=== PATIENT | female | born 1960 | race Two or more races ===

== ENCOUNTER 2024-12-23 11:26 | Inpatient (IN) | payer MEDICARE, MEDICAID, SELFPAY ==
[2024-12-23] VITALS (12 sets, daily range): BP systolic 102–141; BP diastolic 53–82; PULSE 75–96; RESP 15–84; TEMP 36.1–38.7; O2SAT 92–95; BMI 19.3; BMI 21.6
--- NOTE | 2024-12-23 11:55 | XR_ITS ---
Examination: AP lateral chest 2 views TECHNIQUE: Portable sitting AP lateral chest 2 views Exam date and time: December 23, 2024 12:44 PM INDICATIONS: Coughing congestion 2 days. FINDINGS: Bibasilar pneumonia Moderate vascular congestion Normal heart size Reduced inspiratory effort IMPRESSION: Bibasilar pneumonia
--- NOTE | 2024-12-23 11:55 | EKG_ITS ---
[facility] Test Date: 2024-12-23 Pat Name: JESUS BAH Department: Room: - Gender: Female Clinical Education Consultant: : [id number] Requested By: Nelson Yin Order Number: [id number] Reading MD: Nelson Yin Measurements Intervals Bruce Rate: 83 P: 20 NE: 123 QRS: -3 QRSD: 88 T: 9 QT: 335 QTc: 395 Interpretive Statements SINUS RHYTHM LOW QRS VOLTAGE IN PRECORDIAL LEADS [QRS DEFLECTION < 1.0 mV IN CHEST LEADS] ANTEROSEPTAL MYOCARDIAL INFARCTION , OF INDETERMINATE AGE [40+ ms Q WAVE IN V1-V4] No previous ECG available for comparison /store/S0/[id number].pdf
--- NOTE | 2024-12-23 11:56 | EDRME_ITS ---
Rapid Medical Screening Exam [facility] Arrival date/time: 12/23/24 11:26 64-year-old female with a history of hyperlipidemia, developmentally delayed, type 2 diabetes presents to the emergency room with a chief complaint of generalized weakness, fatigue, cough, poor appetite x 3 days. I have greeted and performed a focused initial assessment of this patient. A comprehensive ED assessment and evaluation of the patient, analysis of all test results, and completion of the medical decision making process will be conducted by additional ED providers. Chief Complaint: Weakness Time Seen by Provider: 12/23/24 11:49 Vital signs: Vital Signs Temperature 99.6 F 12/23/24 11:50 Pulse Rate 89 12/23/24 11:50 Respiratory Rate 20 12/23/24 11:50 Blood Pressure 141/77 H 12/23/24 11:50 Pulse Oximetry (%) 92 L 12/23/24 11:50 Oxygen Delivery Method Room Air 12/23/24 11:50 Vital signs reviewed by provider: Yes
[2024-12-23 13:03] LABS: Basophils # (Auto) 0.1 Thou/mm3 (0.0-0.2); Basophils % (Auto) 1 % (0-2.5); Eosinophils % (Auto) 0 % (0-10); Hemoglobin 11.7 g/dL (12.0-16.0); Immature Granulocytes % (Auto) 2 % (0-0); Immature Granulocytes Auto 0.18 Thou/mm3 (0.00-0.00); Lymphocytes # (Auto) 1.2 Thou/mm3 (1.0-4.8); Lymphocytes % (Auto) 12 % (10-50); Mean Corpuscular HGB Conc 33.4 g/dl (31.0-37.0); Mean Corpuscular Hemoglobin 31.9 pg (25.0-35.0); Mean Corpuscular Volume 95 fL (80-100); Monocytes # (Auto) 1.5 Thou/mm3 (0.0-0.8); Monocytes % (Auto) 14 % (0-12); Neutrophils # (Auto) 7.4 Thou/mm3 (1.8-7.7); Neutrophils % (Auto) 71 % (37-80); Nucleated Red Blood Cell % 0 /100 WBC (0); Platelet Count 157 Thou/mm3 (140-440); RDW Standard Deviation 45.2 fL (36.4-46.3); Red Blood Count 3.67 Miln/mm3 (4.00-5.20); White Blood Count 10.3 Thou/mm3 (3.6-11.0)
[2024-12-23 13:29] LABS: Alanine Aminotransferase 105 U/L (10-49); Albumin, Serum 4.4 gm/dL (3.4-4.8); Albumin/Globulin Ratio 1.3 (1.2-2.2); Alkaline Phosphatase 97 U/L (46-116); Anion Gap 8 (7-16); Aspartate Amino Transferase 127 U/L (0-34); BUN/Creatinine Ratio 14 Ratio (12-20); Bilirubin,Total 0.3 mg/dL (0.3-1.2); Blood Urea Nitrogen 13 mg/dL (9-23); Calcium 9.5 mg/dL (8.3-10.6); Calcium (Corrected) 9.5 mg/dL (8.5-10.1); Carbon Dioxide 27.7 mMol/L (20.0-31.0); Chloride 103 mMol/L (98-107); Creatinine (Component) 0.9 mg/dL (0.6-1.3); Estimated Creatinine Clearance 50.8 mL/min (>60); Globulin 3.4 gm/dL (2.3-3.5); Glucose 233 mg/dL (74-106); Magnesium 2.2 mg/dL (1.6-2.6); Osmolality,Calculated 284 (275-295); Potassium 4.2 mMol/L (3.4-5.1); Sodium 139 mMol/L (136-145); Total Protein 7.8 gm/dL (5.7-8.2); Troponin I < 0.020 ng/mL (0.0-0.045); eGFR > 60 See Note
[2024-12-23 13:36] LABS: B-Type Natriuretic Peptide 57 pg/mL (0-100)
[2024-12-23 14:44] LABS: Collection Type, Urine Catheter; Squamous Epithelial Cell,Urine 0 /hpf (0-5)
[2024-12-23 15:26] LABS: Bilirubin,Urine Negative (Negative); Blood,Urine 1+ (Negative); Clarity,Urine Clear (Clear/Hazy); Color,Urine Drk-Yellow (Lt Yel-Yel); Glucose, Urine 2+ (Negative); Ketones,Urine Trace (Negative); Leukocyte Esterase,Urine Negative (Negative); Nitrite,Urine Negative (Negative); Protein,Urine 1+ (Neg - Trace); RBC,Urine 131 /hpf (0-3); Specific Gravity,Urine 1.035 (1.001-1.035); WBC,Urine 5 /hpf (0-5)
--- NOTE | 2024-12-23 15:42 | PD.EDWEAK ---
ED Weakness RME/HPI General Chief complaint: Weakness Stated complaint: NOT EATING, CAN'T STAND, SLOUCHING ;HX DELAYED/NO Time Seen by Provider: 12/23/24 11:49 Source: family (Caregiver) Arrival date/time: 12/23/24 11:26 64-year-old female with past history of hyperlipidemia, developmentally delayed, type 2 diabetes, and is nonverbal presents emergency department complaining of generalized weakness, cough, and poor appetite for 3 days. Mode of arrival: wheelchair Limitations: language barrier and physical limitation RME / HPI RME / HPI Narrative: 12/23/24 11:26 64-year-old female with a history of hyperlipidemia, developmentally delayed, type 2 diabetes presents to the emergency room with a chief complaint of generalized weakness, fatigue, cough, poor appetite x 3 days. I have greeted and performed a focused initial assessment of this patient. A comprehensive ED assessment and evaluation of the patient, analysis of all test results, and completion of the medical decision making process will be conducted by additional ED providers. Related Data Home Medications ?Medication ?Instructions ?Recorded ?Confirmed AVORSTATIN 20 mg PO QDAY HYPERLIPIDEMIA ##0 03/23/16 Divalproex Sodium SPRINKLE * 625 mg PO BID Bipolar Disorder #0 03/23/16 (DEPAKOTE SPRINKLE *) caps Mag Hyd/Alum Hyd/Simeth SUSP * 2 tbsp PO TID PRN INDIGESTION #355 03/23/16 (MAALOX EX STR SUSP *) mL Propranolol Hcl * (INDERAL *) 20 mg PO BID #0 tabs 03/23/16 acetaminophen 500 mg tablet 2 tab PO Q6HR PRN PAIN #0 tabs 03/23/16 (Tylenol Extra Strength) docusate sodium 250 mg capsule 250 mg PO HS #0 caps 03/23/16 (DOK) famotidine 40 mg tablet (Pepcid) 40 mg PO QPM #0 tabs 03/23/16 lactulose 10 gram/15 mL (15 mL) 15 ml PO BID ##0 03/23/16 oral solution multivitamin (Tab-A-Jessica tablet) 1 tab PO QDAY ##0 03/23/16 polyethylene glycol 3350 17 gram 1 pkt PO QDAY ##0 03/23/16 oral powder packet (Miralax) Previous Rx's ?Medication ?Instructions ?Recorded Quetiapine Fumarate (QUETIAPINE 25 mg PO BID #100 tabs 03/27/16 FUMARATE) insulin glargine 100 unit/mL 15 unit (0.15 mL) subcut QDAY #30 03/27/16 subcutaneous solution (Lantus vials U-100 Insulin) metformin 500 mg tablet 500 mg PO BIDAC #100 tabs 03/27/16 (Glucophage) Allergies Allergy/AdvReac Type Severity Reaction Status Date / Time NKA* Allergy Uncoded 12/23/24 11:33 Review of Systems Review of Systems Systems Reviewed: All systems reviewed, normal except as documented Constitutional Constitutional: Reports system reviewed and no additional complaints, except as documented, Denies body ache(s), Denies chills, Denies fever(s), Reports poor appetite and Reports weakness Eyes Eyes: Reports system reviewed and no additional complaints, except as documented and Denies change in vision ENT Ears, Nose, Mouth, and Throat: Reports system reviewed and no additional complaints, except as documented, Denies disequilibrium, Denies dizziness, Denies sore throat and Denies vertigo Cardiovascular Cardiovascular: Reports system reviewed and no additional complaints, except as documented, Denies chest pain and Denies dyspnea Respiratory Respiratory: Reports system reviewed and no additional complaints, except as documented, Denies chest congestion, Reports cough and Denies dyspnea Gastrointestinal Gastrointestinal: Reports system reviewed and no additional complaints, except as documented, Denies abdominal pain, Denies nausea and Denies vomiting Musculoskeletal Musculoskeletal: Reports system reviewed and no additional complaints, except as documented, Denies abnormal gait and Denies arthralgias Integumentary/Breasts Skin/Breast: Reports system reviewed and no additional complaints, except as documented, Denies erythema, Denies rash and Denies wounds Neurologic Neurologic: Reports system reviewed and no additional complaints, except as documented, Denies abnormal gait, Denies disequilibrium, Denies dizziness, Denies vertigo and Reports weakness Past Medical History Past Medical History NEUROLOGIC: Negative Neurological Disorders CARDIAC: Negative Cardiac Disorders or Congestive Heart Failure RESPIRATORY: Negative Respiratory Disorders or Chronic Obstructive Pulmonary Disease (COPD) GASTROINTESTINAL: Negative Gastrointestinal Disorders GENITOURINARY: Negative Genitourinary Disorders or Renal Disease MUSCULOSKELETAL: Negative Musculoskeletal Disorders ENT: Positive History of ENT Problems (Right eye doesn't open per caregiver) ENDOCRINE: Positive Endocrine Disorders and Diabetes Mellitus Type 2; Negative Diabetes Mellitus Type 1 HEMATOLOGIC: Negative Blood Disorders PSYCHO/SOCIAL: Positive Schizophrenia OTHER HISTORY: Negative Cancer Social History SMOKING STATUS: Never smoker ED Exam General Limitations: Present language barrier and physical limitation General appearance: Present alert and in no apparent distress Head Head exam: Present atraumatic Eye Eye exam: Present normal appearance, PERRL and EOMI ENT ENT exam: Present normal exam, normal oropharynx and mucous membranes moist Neck Neck exam: Present normal inspection, full ROM and trachea midline Chest Chest inspection: Present normal inspection and symmetric chest wall rise Respiratory Respiratory exam: Present normal lung sounds bilaterally Expanded Respiratory Exam Location: Left: decreased breath sounds, Right: decreased breath sounds and Lower: decreased breath sounds Cardiovascular Cardiovascular exam: Present regular rate, normal rhythm and normal heart sounds Abdominal Exam Abdominal exam: Present soft and normal bowel sounds Extremities Exam Extremities exam: Present normal inspection and full ROM Back Exam Back exam: Present normal inspection and full ROM Neurological Exam Neurological exam: Present alert Psychiatric Psychiatric exam: Present normal affect and normal mood Skin Skin exam: Present warm, dry, intact and normal color Course Quality Measures none Orders Category Date Time Status Patient Condition Routine Admission 12/23/24 16:[address] in Observation Status Routine Admission 12/23/24 16:29 Active Bedside Blood Glucose ACHS Care 12/23/24 16:32 Active Bedside Blood Glucose NOW Care 12/23/24 12:14 Active Bedside COVID-19 Antigen Test NOW Care 12/23/24 11:55 Active Bedside Influenza A&B Antigen Test NOW Care 12/23/24 11:55 Completed COVID-19 Screening Questionnaire NOW Care 12/23/24 15:49 Active Head Animal Trainer Q4H START 00 Care 12/23/24 12:18 Active Continuous Pulse Oximetry NOW Care 12/23/24 12:18 Completed Decision to Admit X1 Care 12/23/24 15:49 Active EKG (ED ONLY) *Do not use* NOW Care 12/23/24 11:55 Completed Education, Diabetic NOW Care 12/23/24 16:45 Ordered Flu & Pneumonia Vaccine Screen ONCE Care 12/23/24 16:23 Active In and Out Catheter X1 Care 12/23/24 11:55 Completed Insert IV NOW Care 12/23/24 13:59 Active Miscellaneous Nursing Order NOW Care 12/23/24 16:34 Active Notify provider NEEDED Care 12/23/24 16:23 Active Oronasopharyngeal suction PRN Care 12/23/24 12:25 Active Referral Registered Dietitian Routine Cons 12/23/24 16:33 Active EKG (ED Only) Stat Exams 12/23/24 11:55 Draft XR chest 2V Stat Exams 12/23/24 11:55 Completed B-Type Natriuretic Peptide Stat Lab 12/23/24 12:59 Completed Blood Culture (Lab) Stat Lab 12/23/24 16:42 Ordered CBC AM DRAW Lab 12/24/24 05:00 Ordered CBC AM DRAW Lab 12/25/24 05:00 Ordered CBC AM DRAW Lab 12/26/24 05:00 Ordered CBC AM DRAW Lab 12/27/24 05:00 Ordered CBC AM DRAW Lab 12/28/24 05:00 Ordered CBC Stat Lab 12/23/24 12:59 Completed Comprehensive Metabolic Panel AM DRAW Lab 12/24/24 05:00 Ordered Comprehensive Metabolic Panel AM DRAW Lab 12/25/24 05:00 Ordered Comprehensive Metabolic Panel AM DRAW Lab 12/26/24 05:00 Ordered Comprehensive Metabolic Panel AM DRAW Lab 12/27/24 05:00 Ordered Comprehensive Metabolic Panel AM DRAW Lab 12/28/24 05:00 Ordered Comprehensive Metabolic Panel Stat Lab 12/23/24 12:59 Completed Hemoglobin A1C [Glycohemoglobin w (eAG)] AM DRAW Lab 12/24/24 05:00 Ordered Lactic Acid [Lactate (Lactic Acid)] Stat Lab 12/23/24 16:38 Ordered Lipid Panel AM DRAW Lab 12/24/24 05:00 Ordered Magnesium AM DRAW Lab 12/24/24 05:00 Ordered Magnesium AM DRAW Lab 12/25/24 05:00 Ordered Magnesium AM DRAW Lab 12/26/24 05:00 Ordered Magnesium AM DRAW Lab 12/27/24 05:00 Ordered Magnesium AM DRAW Lab 12/28/24 05:00 Ordered Magnesium Stat Lab 12/23/24 12:59 Completed Procalcitonin Stat Lab 12/23/24 16:38 Ordered Sputum Culture and Gram Stain Stat Lab 12/23/24 16:25 Ordered Thyroid Stimulating Hormone AM DRAW Lab 12/24/24 05:00 Ordered Troponin I Stat Lab 12/23/24 12:59 Completed Urinalysis Stat Lab 12/23/24 14:35 Completed Acetaminophen Tab [Tylenol Tab] Med 12/23/24 16:23 Active 650 mg PO Q6H PRN Acetaminophen Tab [Tylenol Tab] Med 12/23/24 16:23 Active 650 mg PO Q6H PRN Dextrose 50% Syr [D50w Syringe Abboject] Med 12/23/24 16:32 Active 25 ml IV Q15MIN PRN Dextrose 50% Syr [D50w Syringe Abboject] Med 12/23/24 16:32 Active 50 ml IV Q15MIN PRN Docusate Sod [Colace] Med 12/23/24 16:30 Active 100 mg PO QDAY Doxycycline Inj [Vibramycin Inj] 100 mg Med 12/23/24 21:00 Active Sodium Chloride 0.9% (Pop) [NS 0.9% mini bag] 100 ml IV BID Glucagon Inj Med 12/23/24 16:32 Active 1 mg IM Q15MIN PRN Heparin Inj Med 12/23/24 22:00 Active 5,000 unit SC Q8HR INSULIN LISPRO (AdmeLOG) [HumaLOG] Med 12/23/24 17:00 Active See Protocol SC AC Ondansetron Inj [Zofran Inj] Med 12/23/24 16:23 Active 4 mg IV Q6H PRN Pantoprazole [Protonix] Med 12/24/24 09:00 Active 40 mg PO QDAY Polyeth Glycol/Propylene Glyco [Miralax Pkt] Med 12/24/24 09:00 Active 17 gm PO QDAY Sennosides Syrup [Senna Syrup] Med 12/23/24 16:45 Active 8.8 mg PO QDAY Sodium Chloride Rt Marisabel 10% [NS Rt Marisabel 10%] Med 12/23/24 16:23 Discontinued 5 ml INH X1 ONE cefTRIAXone [Rocephin] 1,000 mg Med 12/24/24 09:00 Active SODIUM CHLORIDE 0.9% (Popper) [Ns 0.9% (P)] 50 ml IV QDAY cefTRIAXone [Rocephin] 1,000 mg Med 12/23/24 16:10 Discontinued SODIUM CHLORIDE 0.9% (Popper) [Ns 0.9% (P)] 50 ml IV X1 Code Status Routine Oth 12/23/24 16:23 Ordered Oxygen Delivery PRN RT 12/23/24 12:21 Active Sputum Induction PRN RT 12/23/24 16:30 Ordered Vital Signs Vital signs: Vital Signs Temperature 99.6 F 12/23/24 11:50 Pulse Rate 89 12/23/24 11:50 Respiratory Rate 20 12/23/24 11:50 Blood Pressure 141/77 H 12/23/24 11:50 Pulse Oximetry (%) 92 L 12/23/24 11:50 Oxygen Delivery Method Room Air 12/23/24 11:50 92% on 2 L nasal cannula Procedures -ED EKG Interpretation #1: Date of EK12/23/24 Time of EK:03 Rate: 83 Interpretation: Interpreted by me EKG Impression: Normal sinus rhythm, No acute ST-T changes, No ectopy and No ischemic changes Weakness MDM Narrative MDM Narrative:: 64-year-old female with past history of hyperlipidemia, developmentally delayed, type 2 diabetes, and is nonverbal presents emergency department complaining of generalized weakness, cough, and poor appetite for 3 days. CBC was unremarkable for any leukocytosis. CMP was unremarkable other than mild elevation of AST 127 and ALT 105. Urinalysis was unremarkable other than RBCs no leukocytes, no bacteria, or positive for nitrates. Chest x-ray report bilateral bibasilar pneumonia. Patient candidate for admission due to pneumonia and hypoxia. Hospitalist consulted for admission and agrees to admit patient for oxygen therapy and antibiotics. Patient stable at time of admission. Patient data External records reviewed:: [facility] previous records Clinical information provided by:: guardian and senior java architect Social determinants that could affect healthcare access:: none Patient has the following chronic illnesses:: See chart How is presenting disease/condition affected by chronic disease/condition?: uneffected by Evaluation data The following diagnostics were reviewed and interpreted by me:: lab results, radiology exam(s) and EKG tracing(s) Lab and/or radiology exams considered but not ordered:: Ordered Interpretation Summary: Interpreted by me Medications / Prescriptions Medications or Prescriptions considered but not ordered:: Ordered Medication administrations:: Medication Administration History Acetaminophen (Acetaminophen 325 Mg Tablet) 650 mg PO Q6H PRN PRN Reason: Fever >100.5 Stop: 01/22/25 16:22 Last Admin: 12/23/24 16:51 Dose: 650 mg Documented By: SULTANA Acetaminophen (Acetaminophen 325 Mg Tablet) 650 mg PO Q6H PRN PRN Reason: PAIN SCALE 1-3 (mild Stop: 01/22/25 16:22 Dextrose (Dextrose 50%-Water Inj 50 Ml Syringe) 25 ml IV Q15MIN PRN PRN Reason: BG 50-70 responsive npo pt Stop: 01/22/25 16:31 Dextrose (Dextrose 50%-Water Inj 50 Ml Syringe) 50 ml IV Q15MIN PRN PRN Reason: BG <50 OR BG <70 & pt unresponsive Stop: 01/22/25 16:31 Docusate Sodium (Docusate Sod 100 Mg Capsule) 100 mg PO QDAY [facility]; Protocol Stop: 01/22/25 16:29 Last Admin: 12/23/24 16:51 Dose: 100 mg Documented By: DarylT Glucagon (Glucagon Inj 1 Mg Vial) 1 mg IM Q15MIN PRN PRN Reason: BG <70, and no IV access Heparin Sodium (Porcine) (Heparin Sod Inj 5000 Unit/Ml Vial) 5,000 unit SC Q8HR [facility] Stop: 01/06/25 21:59 Ceftriaxone Sodium 1,000 mg/ (Sodium Chloride) 50 mls @ 100 mls/hr IV QDAY [facility] Stop: 12/31/24 08:59 Doxycycline Hyclate 100 mg/ (Sodium Chloride) 100 mls @ 100 mls/hr IV BID [facility] Stop: 12/30/24 20:59 Insulin Human Lispro (Insulin Lispro (Admelog) 1 Unit/0.01 Ml Unit) 0 unit SC AC [facility]; Protocol Stop: 01/22/25 16:59 Ondansetron HCl (Ondansetron Inj 2 Mg/Ml Inj 2 Ml) 4 mg IV Q6H PRN; Protocol PRN Reason: NAUSEA OR VOMITING Stop: 01/22/25 16:22 Pantoprazole Sodium (Pantoprazole 40 Mg Tablet) 40 mg PO QDAY [facility] Stop: 01/23/25 08:59 Polyethylene Glycol (Polyethylene Glycol 17 Gm Packet) 17 gm PO QDAY [facility] Stop: 01/23/25 08:59 Sennosides (Sennosides Syrup 8.8 Mg/5 Ml Udc) 8.8 mg PO QDAY [facility]; Protocol Stop: 01/22/25 16:44 Discontinued Medications Ceftriaxone Sodium 1,000 mg/ (Sodium Chloride) 50 mls @ 100 mls/hr IV X1 ONE Stop: 12/23/24 16:39 Last Admin: 12/23/24 16:52 Dose: 100 mls/hr Documented By: SULTANA Sodium Chloride (Sodium Chloride Rt 10% 15 Ml Nebu) 5 ml INH X1 ONE Stop: 12/23/24 16:24 Given Consultations Consultation(s) initiated? (list below): Yes Consultation #1 (Physician, Specialty, Details): Dr. Jareth Calabrese Diagnosis Weakness Differential Diagnosis: anemia, rhabdomyolysis, sepsis, dehydration and other Most likely diagnosis given after review of the tests above:: Hypoxia Admission Indicated Admission indicated?: indicated Admission Request Was there a request for admission?: Yes Admission Attestation Admission request attestation: Discussed case with [Dr. Jareth Calabrese] from Hospitalist service regarding admission. Discussed patients ED course, exam findings, labs, and radiology results. The Hospitalist [agrees] to accept the patient for admission. Disposition Plan Disposition Plan: Admit Discharge Plan Plan Patient Disposition: Admit Acute Care w/in Hospital Disposition Comment: Stable Prescriptions/Referrals Prescriptions/Med Rec: No Action polyethylene glycol 3350 [Miralax] 12 EA powder in packet 1 pkt PO QDAY Qty: 0 Propranolol Hcl * (INDERAL *) 20 MG tablet 20 mg PO BID Qty: 0 AVORSTATIN 20 mg PO QDAY Qty: 0 multivitamin [Tab-A-Jessica] 1 TAB tablet 1 tab PO QDAY Qty: 0 famotidine [Pepcid] 40 MG tablet 40 mg PO QPM Qty: 0 Patient Comments: TO SUP[employer] SECRETIONS acetaminophen [Tylenol Extra Strength] 500 MG tablet 2 tab PO Q6HR PRN (Reason: PAIN) Qty: 0 Patient Comments: FOR FEVER OR PAIN docusate sodium [DOK] 250 MG capsule 250 mg PO HS Qty: 0 lactulose 10 GM/15 ML solution 15 ml PO BID Qty: 0 Divalproex Sodium SPRINKLE * (DEPAKOTE SPRINKLE *) 125 MG CAP.SPRINK 625 mg PO BID Qty: 0 Mag Hyd/Alum Hyd/Simeth SUSP * (MAALOX EX STR SUSP *) 355 ML ORAL.SUSP 2 tbsp PO TID PRN (Reason: INDIGESTION) Qty: 355 metformin [Glucophage] 500 MG tablet 500 mg PO BIDAC Qty: 100 0RF insulin glargine [Lantus U-100 Insulin] 100 U/ML solution 15 unit Sub-Q QDAY Qty: 30 0RF Quetiapine Fumarate (QUETIAPINE FUMARATE) 25 MG tablet 25 mg PO BID Qty: 100 0RF Referrals: Shabbir Calabrese MD [Primary Care Provider] - In 1 week Problem List Clinical Impression: Hypoxia Patient/Caregiver Discharge Instructions Print Language: Italian Stand Alone Forms: Janell Award Info., Patient Portal Info Letter PA/TELEVISION PROGRAM DIRECTOR Supervising Physician PA/TELEVISION PROGRAM DIRECTOR Supervising Physician: Dr. Lucas
--- NOTE | 2024-12-23 16:44 | ESHP_ITS ---
<Statement entered by Breanna Varela MD - 12/24/24 15:46> Patient is a 64 y.o female w/ PMHx significant for type2 DM, developmentally delayed, nonverbal at baseline, HLD, who presented to the ED with generalized weakness and admitted for AHRF 2/2 to CAP. Patient started on IV Abx, pending blood cultures, COVID/Influenza, LA and Procal. Will restart patient's home medications pending med rec. Patient seen and examined at bedside, Patient comfortable on 3L saturating above 94% and will wean as tolerated. I discussed with and supervised the creative services intern physician who took care of this patient. I personally saw and examined the patient and discussed the assessment and plan with the entire medicine team, including my attending , I agree with most of the assessment and plan as documented below Breanna Varela M.D. PGY-2 Documentation for date of: 12/23/24 HPI History of Present Illness Chief complaint: Acute hypoxic respiratory failure History of present illness: History taken from caregiver who is at bedside 64-year-old female with past medical history of type 2 diabetes (not on any medications), developmentally delayed, hyperlipidemia, schizoaffective disorder who was brought into the ED by caregiver due to generalized weakness. Per the caregiver patient has been progressively getting more lethargic for the past 3 days. Patient at baseline is wheelchair-bound but would stand with assistance however in the past days patient has lost interest in her usual daily activities. Patient has had poor appetite and would just spit out the food. Patient also has cough productive of white-yellowish phlegm. ED course: Vitals on arrival show blood pressure 140/77, heart rate 89, respiratory rate 20, temperature 99.6, saturating 92% on room air. Labs significant for hemoglobin 11.7, glucose 233, AST 127, ALT 105, troponins negative, BNP negative, rest of labs unremarkable. EKG shows normal sinus rhythm, chest x-ray shows bibasilar pneumonia PMHx: As above SX Hx: Unknown Social Hx: Denies alcohol use, denies tobacco use, denies illicit substances including THC FHx: Unknown Review of Systems Review of Systems ROS Unobtainable: unobtainable due to mental status Exam Vital Signs Temp Pulse Resp BP Pulse Ox O2 Del Method O2 Flow Rate 99.4 F 86 18 125/64 95 Nasal Cannula 2 12/23/24 14:39 12/23/24 14:39 12/23/24 14:39 12/23/24 14:39 12/23/24 14:39 12/23/24 14:39 12/23/24 14:39 Narrative Exam Physical Exam GENERAL: NAD, lethargic, HEENT: Dry mucosa. Blind in the right eye CARDIO: Heart RRR, no obvious murmurs PULM: + coughing/dyspnea decreased air entry bilaterally GI: Abdomen soft, nondistended, no pain on palpation. BSx4 SKIN/MSK/EXT: No wounds/rashes/edema/amputations, no pain on palpation. Pedal pulses present B/L NEURO: AAOx3, no focal neuro deficits, able to move all 4 extremities Results: Labs 12/24/24 04:50 12/24/24 04:50 Labs: Short CBC 12/23/24 Range/Units 12:59 WBC 10.3 (3.6-11.0) Thou/mm3 Hgb 11.7 L (12.0-16.0) g/dL Hct 35.0 L (36.0-46.0) % Plt Count 157 (140-440) Thou/mm3 BMP 12/23/24 12:59 Sodium 139 Potassium 4.2 Chloride 103 Carbon Dioxide 27.7 BUN 13 Creatinine 0.9 Glucose 233 H Calcium 9.5 Cardiac Enzymes 12/23/24 Range/Units 12:59 Troponin I < 0.020 (0.0-0.045) ng/mL Liver Function 12/23/24 Range/Units 12:59 Total Bilirubin 0.3 (0.3-1.2) mg/dL AST 127 H (0-34) U/L ALT 105 H (10-49) U/L Alkaline Phosphatase 97 (46-116) U/L Albumin 4.4 (3.4-4.8) gm/dL Urine 12/23/24 Range/Units 14:35 Urine Color Drk-Yellow A (Lt Yel-Yel) Urine Clarity Clear (Clear/Hazy) Urine pH 6.0 (5.0-7.0) Ur Specific [place] 1.035 (1.001-1.035) Urine Protein 1+ A (Neg - Trace) Urine Glucose (UA) 2+ A (Negative) Quality Measures Quality Measures none Medications Home Medications and Allergies Home Medications ?Medication ?Instructions ?Recorded ?Confirmed ?Type AVORSTATIN 20 mg PO QDAY HYPERLIPIDEMIA ##0 03/23/16 12/23/24 History Divalproex Sodium SPRINKLE * 625 mg PO BID Bipolar Dis order #0 03/23/16 History (DEPAKOTE SPRINKLE *) caps Mag Hyd/Alum Hyd/Simeth SUSP * 2 tbsp PO TID PRN INDIG ESTION #355 03/23/16 History (MAALOX EX STR SUSP *) mL Propranolol Hcl * (INDERAL *) 20 mg PO BID #0 tabs 01/03 History acetaminophen 500 mg tablet 2 tab PO Q6HR PRN PAIN #0 tabs 03/23/16 History (Tylenol Extra Strength) docusate sodium 250 mg capsule 250 mg PO HS #0 caps History (DOK) famotidine 40 mg tablet (Pepcid) 40 mg PO QPM #0 tabs 03/23/16 History lactulose 10 gram/15 mL (15 mL) 15 ml PO BID ##0 03/23 History oral solution multivitamin (Tab-A-Jessica tablet) 1 tab PO QDAY ##0 01/03 History polyethylene glycol 3350 17 gram 1 pkt PO QDAY ##0 01/03 History oral powder packet (Miralax) atorvastatin 20 mg tablet mg 12/23/24 History divalproex 125 mg capsule,delayed mg PO 12/23/24 Hist ory release sprinkle loratadine 10 mg tablet mg 12/23/24 History mirtazapine 15 mg tablet mg 12/23/24 History omeprazole 40 mg capsule,delayed mg 12/23/24 History release propranolol 20 mg tablet mg 12/23/24 History ziprasidone HCl 40 mg capsule mg PO 12/23/24 History Allergies Allergy/AdvReac Type Severity Reaction Status Date / Time NKA* Allergy Uncoded 12/23/24 11:33 Visit Medications Acetaminophen (Acetaminophen 325 Mg Tablet) 650 mg PO Q6H PRN PRN Reason: Fever >100.5 Stop: 01/22/25 16:22 Acetaminophen (Acetaminophen 325 Mg Tablet) 650 mg PO Q6H PRN PRN Reason: PAIN SCALE 1-3 (mild Stop: 01/22/25 16:22 Dextrose (Dextrose 50%-Water Inj 50 Ml Syringe) 25 ml IV Q15MIN PRN PRN Reason: BG 50-70 responsive npo pt Stop: 01/22/25 16:31 Dextrose (Dextrose 50%-Water Inj 50 Ml Syringe) 50 ml IV Q15MIN PRN PRN Reason: BG <50 OR BG <70 & pt unresponsive Stop: 01/22/25 16:31 Docusate Sodium (Docusate Sod 100 Mg Capsule) 100 mg PO QDAY [facility]; Protocol Stop: 01/22/25 16:29 Glucagon (Glucagon Inj 1 Mg Vial) 1 mg IM Q15MIN PRN PRN Reason: BG <70, and no IV access Heparin Sodium (Porcine) (Heparin Sod Inj 5000 Unit/Ml Vial) 5,000 unit SC Q8HR ABBY Stop: 01/06/25 21:59 Ceftriaxone Sodium 1,000 mg/ (Sodium Chloride) 50 mls @ 100 mls/hr IV QDAY ABBY Stop: 12/31/24 08:59 Doxycycline Hyclate 100 mg/ (Sodium Chloride) 100 mls @ 100 mls/hr IV BID ABBY Stop: 12/30/24 20:59 Insulin Human Lispro (Insulin Lispro (Admelog) 1 Unit/0.01 Ml Unit) 0 unit SC AC ABBY; Protocol Stop: 01/22/25 16:59 Ondansetron HCl (Ondansetron Inj 2 Mg/Ml Inj 2 Ml) 4 mg IV Q6H PRN; Protocol PRN Reason: NAUSEA OR VOMITING Stop: 01/22/25 16:22 Pantoprazole Sodium (Pantoprazole 40 Mg Tablet) 40 mg PO QDAY [facility] Stop: 01/23/25 08:59 Polyethylene Glycol (Polyethylene Glycol 17 Gm Packet) 17 gm PO QDAY ABBY Stop: 01/23/25 08:59 Sennosides (Sennosides Syrup 8.8 Mg/5 Ml Udc) 8.8 mg PO QDAY [facility]; Protocol Stop: 01/22/25 16:44 Discontinued Medications Ceftriaxone Sodium 1,000 mg/ (Sodium Chloride) 50 mls @ 100 mls/hr IV X1 ONE Stop: 12/23/24 16:39 Sodium Chloride (Sodium Chloride Rt 10% 15 Ml Nebu) 5 ml INH X1 ONE Stop: 12/23/24 16:24 Assessment & Plan Plan 64-year-old female with past medical history of type 2 diabetes (not on any medications), developmentally delayed, nonverbal at baseline, hyperlipidemia, schizoaffective disorder who was brought into the ED by caregiver due to generalized weakness. Per the caregiver patient has been progressively getting more lethargic for the past 3 days. Patient at baseline is wheelchair-bound but would stand with assistance however in the past days patient has lost interest in her usual daily activities. Patient has had poor appetite and would just spit out the food. Patient also has cough productive of white-yellowish phlegm. Admitted for acute hypoxic respiratory failure secondary to community-acquired pneumonia. #Acute hypoxic respiratory failure secondary to #Community-acquired pneumonia #Acute encephalopathy #Generalized weakness Per caregiver patient has become more lethargic and less active than her baseline Patient is usually active at the home she lives in however when I saw the patient is very lethargic, very sleepy Patient is nonverbal at baseline On arrival the patient was saturating 92% on room air On examination decreased bilateral breath sounds Chest x-ray shows bilateral pneumonia ? On ceftriaxone ? On doxycycline ? Blood cultures ordered ? Follow-up COVID/influenza ? Lactic acid ordered ? Procalcitonin ordered ? Sputum cultures ordered #Elevated liver enzymes Likely secondary to infectious process ? Monitor at this time #Hyperlipidemia ? Resume atorvastatin 20 mg daily #Diabetes mellitus Caregiver states patient does not take any medications for diabetes However blood sugars are above the 200s ? SSI ? Hypoglycemia protocol in place ? Follow-up A1c #Developmentally delayed #Schizoaffective disorder Apparently patient takes Depakote and other medications however medications not showing on EMR ? Pending med rec #History of constipation Per caregiver patient has history of constipation has not had a bowel movement in more than 3 days she takes docusate and MiraLAX at home ? Senna ? Docusate ? MiraLAX Case discussed with my senior Dr. Varela PGY-[address] Aravind Calabrese MD PGY-1 Disposition: Med telemetry Fluids: None Feeding: N.p.o. until swallow screen passed Thrombo prophylaxis: Heparin Gastric Ulcer prophylaxis: Pantoprazole CODE STATUS: Full code Attending Provider Attestation/Addendum Hiwot Peng, DO, attest that I was physically present for the grissom portions of the service and evaluated the patient with the resident and I reviewed and discussed the case with the resident and agree with the resident's findings and plans of care as documented above Patient is a 64-year-old female with past medical history of developmental delay, type 2 diabetes, hyperlipidemia and schizoaffective disorder who was brought in by her metal mixer for worsening lethargy and decreased p.o. intake. At baseline, patient is mute, but is able to stand and feed herself. Patient usually has a great appetite. However, patient was noted to have some congestion and has been more drowsy. Per metal mixer, urine also appeared to be dark, but not foul-smelling. She denies any diarrhea. She also denies any fevers or chills. Upon presentation in the ED, patient has been requiring 2 L nasal cannula. Chest x-ray shows bibasilar pneumonia. She has been otherwise afebrile. Per metal mixer, they are unable to care for patient at longterm if she requires supplemental O2. Will admit patient to med/tele for further workup and management of acute hypoxic respiratory failure 2/2 community acquired pneumonia. Flap Curer denies any sick contacts. Patient is conserved by the [facility] if any medical decisions are required to be made. Flap Curer denies any possible aspiration episodes, nausea or vomiting.
[2024-12-23] MEDS: DOCUSATE SOD 100 MG CAPSULE PO (16:51)
[2024-12-23] MEDS: ACETAMINOPHEN 325 MG TABLET 650 MG PO (16:51)
[2024-12-23] MEDS: cefTRIAXone 1,000 MG in SODIUM CHLORIDE 0.9% (Popper) 50 ML 100 MG IV (16:52)
[2024-12-23] MEDS: SODIUM CHLORIDE RT 10% 15 ML NEBU 5 ML INH (17:59)
[2024-12-23 18:01] LABS: Lactate (Lactic Acid) 1.7 mMol/L (0.4-2.0)
[2024-12-23 18:45] LABS: Procalcitonin 0.14 ng/ml (0.0-0.49)
[2024-12-23] MEDS: DOXYCYCLINE INJ 100 MG in SODIUM CHLORIDE 0.9% (POP) 100 ML IV (21:27)
--- NOTE | 2024-12-23 21:36 | PC.NURSE ---
report given to Mark RN pt taken to rm [id number] on monitor. by NENO RUBI
[2024-12-23] MEDS: HEPARIN SOD INJ 5000 UNIT/ML VIAL SC (21:49)
[2024-12-24] VITALS (9 sets, daily range): BP systolic 108–148; BP diastolic 73–87; PULSE 77–92; RESP 15–22; TEMP 36.5–37.2; O2SAT 86–95; BMI 21.4
[2024-12-24] MEDS: HEPARIN SOD INJ 5000 UNIT/ML VIAL SC ×3 (05:20→21:18)
[2024-12-24 06:08] LABS: Basophils % (Auto) 0 % (0-2.5); Eosinophils % (Auto) 0 % (0-10); Hematocrit 32.5 % (36.0-46.0); Hemoglobin 11.1 g/dL (12.0-16.0); Immature Granulocytes % (Auto) 2 % (0-0); Immature Granulocytes Auto 0.12 Thou/mm3 (0.00-0.00); Lymphocytes % (Auto) 12 % (10-50); Mean Corpuscular HGB Conc 34.2 g/dl (31.0-37.0); Mean Corpuscular Hemoglobin 31.4 pg (25.0-35.0); Mean Corpuscular Volume 92 fL (80-100); Monocytes # (Auto) 1.1 Thou/mm3 (0.0-0.8); Monocytes % (Auto) 15 % (0-12); Neutrophils # (Auto) 5.4 Thou/mm3 (1.8-7.7); Neutrophils % (Auto) 71 % (37-80); Nucleated Red Blood Cell % 0 /100 WBC (0); Platelet Count 162 Thou/mm3 (140-440); RDW Standard Deviation 41.8 fL (36.4-46.3); Red Blood Count 3.53 Miln/mm3 (4.00-5.20); White Blood Count 7.7 Thou/mm3 (3.6-11.0)
[2024-12-24 06:41] LABS: Alanine Aminotransferase 88 U/L (10-49); Albumin, Serum 3.8 gm/dL (3.4-4.8); Albumin/Globulin Ratio 1.3 (1.2-2.2); Alkaline Phosphatase 81 U/L (46-116); Anion Gap 6 (7-16); Aspartate Amino Transferase 84 U/L (0-34); BUN/Creatinine Ratio 23 Ratio (12-20); Bilirubin,Total 0.2 mg/dL (0.3-1.2); Blood Urea Nitrogen 14 mg/dL (9-23); Calcium (Corrected) 9.2 mg/dL (8.5-10.1); Carbon Dioxide 29.8 mMol/L (20.0-31.0); Cardiac Risk Estimate 4.7 RATIO (3.7-5.6); Chloride 104 mMol/L (98-107); Cholesterol 122 mg/dL (132-200); Creatinine (Component) 0.6 mg/dL (0.6-1.3); Estimated Creatinine Clearance 81.8 mL/min (>60); Glucose 137 mg/dL (74-106); HDL Cholesterol 26 mg/dL (40-60); LDL Cholesterol,Calculated 57 mg/dL (0-130); Magnesium 2.1 mg/dL (1.6-2.6); Osmolality,Calculated 281 (275-295); Potassium 3.8 mMol/L (3.4-5.1); Sodium 140 mMol/L (136-145); Thyroid Stimulating Hormone 2.28 uIU/mL (0.55-4.78); Total Protein 6.8 gm/dL (5.7-8.2); Triglycerides 195 mg/dL (30-150); eGFR > 60 See Note
[2024-12-24 06:49] LABS: Glucose Estimated Average 134 mg/dL (80-131); Hemoglobin A1C 6.3 % Hgb (4.8-6.0)
--- NOTE | 2024-12-24 10:05 | PCS.ST ---
Swallow eval completed. Diet order entered for (carb control) puree with thin liquids via sippy cup only.
[2024-12-24] MEDS: POLYETHYLENE GLYCOL 17 GM PACKET PO (10:06)
[2024-12-24] MEDS: PANTOPRAZOLE 40 MG TABLET PO (10:07)
[2024-12-24] MEDS: DOCUSATE SOD 100 MG CAPSULE PO (10:07)
[2024-12-24] MEDS: ATORVASTATIN CALCIUM 20 MG TABLET PO (10:07)
[2024-12-24] MEDS: cefTRIAXone 1,000 MG in SODIUM CHLORIDE 0.9% (Popper) 50 ML 100 MG IV (10:07)
[2024-12-24] MEDS: DOXYCYCLINE INJ 100 MG in SODIUM CHLORIDE 0.9% (POP) 100 ML IV ×2 (10:08→20:34)
--- NOTE | 2024-12-24 10:22 | PC.SS ---
Follow up note: Patient is devel. delayed. She is non verbal and wheelchair bound. Patient admitted for hypoxic resp failure. Patient is from [facility]. SS spoke to patient's are [facility] yarn tester, Cara. Cara states patient has 24 hour care. [facility] makes all healthcare decisions. [facility] case specialist is Lauren Fitch. Any minor consents, carehome can sign. Patient has no family. PCP: Dr. Calabrese @ the [facility]. Last appt was a month ago. Patient has dx: Schizoeffective disorder and sees Dr. Clemons in [place] for once a month. Patient [facility] yarn tester to provide transportation home. Plan: return to [facility].
--- NOTE | 2024-12-24 12:11 | ESPR_ITS ---
<Statement entered by Breanna Varela MD - 12/25/24 17:01> Patient seen and examined at bedside. No acute overnight events reported. Patient appears calm requiring 3 L nasal cannula but in no respiratory distress. Cocci IgM negative as well as RSV. Will continue with IV antibiotics, ceftriaxone and doxycycline and wean O2 as tolerated. I discussed with and supervised the international controller physician who took care of this patient. I personally saw and examined the patient and discussed the assessment and plan with the entire medicine team, including my attending , I agree with most of the assessment and plan as documented below Breanna Varela M.D. PGY-2 Disclaimer: Despite multiple revisions, due to the dictation software being used, the document bellow may not be free of grammatical errors including phonetic/typographic errors. However, this does not deter from our commitment to providing health care in the patient's best interest in mind. Documentation for date of: 12/24/24 Subjective Subjective Interval history: Patient seen today at the bedside found awake and more alert compared to previous examinations. No overnight events reported. Patient seems more active and alert compared to previous examinations. Vital signs stable at this time. Labs overall improving. Blood cultures pending, sputum cultures pending, cocci IgM negative, RSV negative. Will continue current management with IV antibiotics ceftriaxone and doxycycline. Home medications resumed. Exam Vital Signs Temp Pulse Resp BP Pulse Ox O2 Del Method O2 Flow Rate 97.7 F 90 19 108/87 H 90 L Nasal Cannula 3 12/24/24 08:00 12/24/24 08:00 12/24/24 08:00 12/24/24 08:00 12/24/24 08:00 12/24/24 08:00 12/24/24 08:00 Narrative Exam Physical Exam GENERAL: NAD, awake, alert, developmentally delayed HEENT: Dry mucosa. Blind in the right eye CARDIO: Heart RRR, no obvious murmurs PULM: + coughing/dyspnea decreased air entry bilaterally GI: Abdomen soft, nondistended, no pain on palpation. BSx4 SKIN/MSK/EXT: No wounds/rashes/edema/amputations, no pain on palpation. Pedal pulses present B/L Objective Labs 12/25/24 04:32 12/25/24 04:32 Labs: Laboratory Results - last 24 hr 12/23/24 12/23/24 12/23/24 12:59 14:35 17:33 WBC 10.3 RBC 3.67 L Hgb 11.7 L Hct 35.0 L MCV 95 MCH 31.9 MCHC 33.4 RDW Std Deviation 45.2 Plt Count 157 Neut % (Auto) 71 Lymph % (Auto) 12 Petroleum % (Auto) 14 H Eos % (Auto) 0 Baso % (Auto) 1 Neut # (Auto) 7.4 Lymph # (Auto) 1.2 Petroleum # (Auto) 1.5 H Eos # (Auto) 0.0 Baso # (Auto) 0.1 Immature Gran # (Auto) 0.18 H Absolute Nucleated RBC 0.00 Immature Gran % 2 H Nucleated RBC % 0 Sodium 139 Potassium 4.2 Chloride 103 Carbon Dioxide 27.7 Anion Gap 8 BUN 13 Creatinine 0.9 Estim Creat Clear Calc 50.8 L eGFR > 60 BUN/Creatinine Ratio [address] Glu mg/dL Hemoglobin A1c Calculated Osmolality 284 Lactic Acid 1.7 Calcium 9.5 Corrected Calcium 9.5 Magnesium 2.2 Total Bilirubin 0.3 AST 127 H ALT 105 H Alkaline Phosphatase 97 Troponin I < 0.020 B-Natriuretic Peptide 57 Total Protein 7.8 Albumin 4.4 Globulin 3.4 Albumin/Globulin Ratio 1.3 Triglycerides Cholesterol LDL Cholesterol, Calc HDL Cholesterol Cholesterol/HDL Ratio Procalcitonin 0.14 TSH Ur Collection Type Catheter Urine Color Drk-Yellow A Urine Clarity Clear Urine pH 6.0 Ur Specific [place] 1.035 Urine Protein 1+ A Urine Glucose (UA) 2+ A Urine Ketones Trace Urine Blood 1+ A Urine Nitrite Negative Urine Bilirubin Negative Urine Urobilinogen (Auto) 2.0 Ur Leukocyte Esterase Negative Urine RBC 131 H Urine WBC 5 Ur Squamous Epith Cells 0 Urine Bacteria None 12/24/24 04:50 WBC 7.7 RBC 3.53 L Hgb 11.1 L Hct 32.5 L MCV 92 MCH 31.4 MCHC 34.2 RDW Std Deviation 41.8 Plt Count 162 Neut % (Auto) 71 Lymph % (Auto) 12 Petroleum % (Auto) 15 H Eos % (Auto) 0 Baso % (Auto) 0 Neut # (Auto) 5.4 Lymph # (Auto) 1.0 Petroleum # (Auto) 1.1 H Eos # (Auto) 0.0 Baso # (Auto) 0.0 Immature Gran # (Auto) 0.12 H Absolute Nucleated RBC 0.00 Immature Gran % 2 H Nucleated RBC % 0 Sodium 140 Potassium 3.8 Chloride 104 Carbon Dioxide 29.8 Anion Gap 6 L BUN 14 Creatinine 0.6 Estim Creat Clear Calc 81.8 eGFR > 60 BUN/Creatinine Ratio 23 H Glucose [address] Glu mg/dL 134 H Hemoglobin A1c 6.3 H Calculated Osmolality 281 Lactic Acid Calcium 9.0 Corrected Calcium 9.2 Magnesium 2.1 Total Bilirubin 0.2 L AST 84 H ALT 88 H Alkaline Phosphatase 81 Troponin I B-Natriuretic Peptide Total Protein 6.8 Albumin 3.8 D Globulin 3.0 Albumin/Globulin Ratio 1.3 Triglycerides 195 H Cholesterol 122 L LDL Cholesterol, Calc 57 HDL Cholesterol 26 L Cholesterol/HDL Ratio 4.7 Procalcitonin TSH 2.28 Ur Collection Type Urine Color Urine Clarity Urine pH Ur Specific [place] Urine Protein Urine Glucose (UA) Urine Ketones Urine Blood Urine Nitrite Urine Bilirubin Urine Urobilinogen (Auto) Ur Leukocyte Esterase Urine RBC Urine WBC Ur Squamous Epith Cells Urine Bacteria Quality Measures Quality Measures none Assessment & Plan Assessment Current Active Medications: Generic Name Dose Route Start Last Admin Trade Name Freq PRN Reason Stop Dose Admin Acetaminophen 650 mg 12/23/24 16:23 12/23/24 16:51 Acetaminophen 325 Mg Tablet PO 01/22/25 16:22 650 mg Q6H PRN Administration Fever >100.5 Acetaminophen 650 mg 12/23/24 16:23 Acetaminophen 325 Mg Tablet PO 01/22/25 16:22 Q6H PRN PAIN SCALE 1-3 (mild Atorvastatin Calcium 20 mg 12/24/24 09:00 12/24/24 10:07 Atorvastatin Calcium 20 Mg Tablet PO 01/23/25 08:59 20 mg QDAY ABBY Administration Dextrose 25 ml 12/23/24 16:32 Dextrose 50%-Water Inj 50 Ml Syringe IV 01/22/25 16:31 Q15MIN PRN BG 50-70 responsive npo pt Dextrose 50 ml 12/23/24 16:32 Dextrose 50%-Water Inj 50 Ml Syringe IV 01/22/25 16:31 Q15MIN PRN BG <50 OR BG <70 & pt unresponsive Docusate Sodium 100 mg 12/23/24 16:30 12/24/24 10:07 Docusate Sod 100 Mg Capsule PO 01/22/25 16:29 100 mg QDAY ABBY Administration Protocol Glucagon 1 mg 12/23/24 16:32 Glucagon Inj 1 Mg Vial IM Q15MIN PRN BG <70, and no IV access Heparin Sodium (Porcine) 5,000 unit 12/23/24 22:00 12/24/24 05:20 Heparin Sod Inj 5000 Unit/Ml Vial SC 01/06/25 21:59 5,000 unit Q8HR ABBY Administration Ceftriaxone Sodium 1,000 mg/ 50 mls @ 100 mls/hr 12/24/24 09:00 12/24/24 10:07 Sodium Chloride IV 12/31/24 08:59 100 mls/hr QDAY ABBY Administration Doxycycline Hyclate 100 mg/ 100 mls @ 100 mls/hr 12/23/24 21:00 12/24/24 10:08 Sodium Chloride IV 12/30/24 20:59 100 mls/hr BID ABBY Administration Insulin Human Lispro 0 unit 12/23/24 17:00 12/24/24 07:30 Insulin Lispro (Admelog) 1 Unit/0.01 Ml Unit SC 01/22/25 16:59 Not Given AC ABBY Protocol Ondansetron HCl 4 mg 12/23/24 16:23 Ondansetron Inj 2 Mg/Ml Inj 2 Ml IV 01/22/25 16:22 Q6H PRN NAUSEA OR VOMITING Protocol Pantoprazole Sodium 40 mg 12/24/24 09:00 12/24/24 10:07 Pantoprazole 40 Mg Tablet PO 01/23/25 08:59 40 mg QDAY ABBY Administration Polyethylene Glycol 17 gm 12/24/24 09:00 12/24/24 10:06 Polyethylene Glycol 17 Gm Packet PO 01/23/25 08:59 17 gm QDAY ABBY Administration Sennosides 8.8 mg 12/23/24 16:45 Sennosides Syrup 8.8 Mg/5 Ml Udc PO 01/22/25 16:44 QDAY ABBY Protocol Plan 64-year-old female with past medical history of type 2 diabetes (not on any medications), developmentally delayed, nonverbal at baseline, hyperlipidemia, schizoaffective disorder who was brought into the ED by caregiver due to generalized weakness. Per the caregiver patient has been progressively getting more lethargic for the past 3 days. Patient at baseline is wheelchair-bound but would stand with assistance however in the past days patient has lost interest in her usual daily activities. Patient has had poor appetite and would just spit out the food. Patient also has cough productive of white-yellowish phlegm. Admitted for acute hypoxic respiratory failure secondary to community-acquired pneumonia. #Acute hypoxic respiratory failure secondary to #Community-acquired pneumonia #Acute encephalopathy #Generalized weakness Per caregiver patient has become more lethargic and less active than her baseline Patient is usually active at the home she lives in however when I saw the patient is very lethargic, very sleepy Patient is nonverbal at baseline On arrival the patient was saturating 92% on room air On examination decreased bilateral breath sounds Chest x-ray shows bilateral pneumonia ? On ceftriaxone ? On doxycycline ? Blood cultures ordered ? Follow-up COVID/influenza ? Lactic acid ordered ? Procalcitonin ordered ? Sputum cultures ordered #Elevated liver enzymes Likely secondary to infectious process ? Monitor at this time #Hyperlipidemia ? Resume atorvastatin 20 mg daily #Diabetes mellitus Caregiver states patient does not take any medications for diabetes However blood sugars are above the 200s A1c 6.3 ? SSI ? Hypoglycemia protocol in place #Developmentally delayed #Schizoaffective disorder Apparently patient takes Depakote and other medications however medications not showing on EMR ? Depakote resumed ? Ziprasidone resumed as taken at home #History of constipation Per caregiver patient has history of constipation has not had a bowel movement in more than 3 days she takes docusate and MiraLAX at home ? Senna ? Docusate ? MiraLAX Case discussed with my senior Dr. Varela PGY-[address] Aravind Calabrese MD PGY-1 Disposition: Med telemetry Fluids: None Feeding: Carb consistent Thrombo prophylaxis: Heparin Gastric Ulcer prophylaxis: Pantoprazole CODE STATUS: Full code Attending Provider Attestation/Addendum Hiwot Peng, DO, attest that I was physically present for the grissom portions of the service and evaluated the patient with the resident and I reviewed and discussed the case with the resident and agree with the resident's findings and plans of care as documented above Patient seen eval this a.m. No acute events overnight. Patient appears to have baseline and is tracking with eyes. No manager ethics at bedside. Patient is laying in position. She is currently on 3 L nasal cannula saturating in the high 80s. Continue to titrate O2 as tolerated. Lungs are CTAB/L on exam. Continue with IV abx
[2024-12-24 12:12] LABS: Respiratory Syncytial Virus Ag Negative (Negative)
[2024-12-24 12:59] LABS: Cocci Serology, IgM Negative (Negative)
--- NOTE | 2024-12-24 14:34 | PC.PT ---
PT eval received. Patient is at her PLOF. Skilled PT is not indicated at this time.
[2024-12-24] MEDS: PROPRANOLOL 10 MG TABLET 20 MG PO ×2 (15:05→20:34)
[2024-12-24] MEDS: DIVALPROEX SOD 125 MG SPRINKLE 625 MG PO ×2 (15:05→20:33)
[2024-12-24] MEDS: ZIPRASIDONE 20 MG CAPSULE 40 MG PO ×2 (15:06→20:34)
--- NOTE | 2024-12-24 16:15 | PC.SS ---
Rounding: Pending cultures, pt currently on 2-3L of O2.
--- NOTE | 2024-12-24 16:17 | PC.SS ---
SS spoke to Cara Fransico from [facility], per Cara she would need to check with their licensing if they can take PRN O2. Cara stated they are closed for the day but she will call first thing tomorrow.
[2024-12-24] MEDS: INSULIN LISPRO (AdmeLOG) 1 UNIT/0.01 ML UNIT SC (17:33)
[2024-12-24] MEDS: MIRTAZAPINE 15 MG TABLET PO (20:34)
[2024-12-25] VITALS (12 sets, daily range): BP systolic 115–133; BP diastolic 60–79; PULSE 70–89; RESP 15–24; TEMP 36.1–36.7; O2SAT 88–96
[2024-12-25] MEDS: HEPARIN SOD INJ 5000 UNIT/ML VIAL SC ×3 (05:07→21:08)
[2024-12-25 05:45] LABS: Basophils % (Auto) 1 % (0-2.5); Eosinophils % (Auto) 0 % (0-10); Hematocrit 33.2 % (36.0-46.0); Immature Granulocytes % (Auto) 1 % (0-0); Immature Granulocytes Auto 0.09 Thou/mm3 (0.00-0.00); Lymphocytes # (Auto) 1.4 Thou/mm3 (1.0-4.8); Lymphocytes % (Auto) 15 % (10-50); Mean Corpuscular HGB Conc 33.1 g/dl (31.0-37.0); Mean Corpuscular Hemoglobin 30.6 pg (25.0-35.0); Mean Corpuscular Volume 92 fL (80-100); Monocytes # (Auto) 1.4 Thou/mm3 (0.0-0.8); Monocytes % (Auto) 16 % (0-12); Neutrophils # (Auto) 5.9 Thou/mm3 (1.8-7.7); Neutrophils % (Auto) 67 % (37-80); Nucleated Red Blood Cell % 0 /100 WBC (0); Platelet Count 185 Thou/mm3 (140-440); RDW Standard Deviation 42.6 fL (36.4-46.3); White Blood Count 8.8 Thou/mm3 (3.6-11.0)
[2024-12-25 06:10] LABS: Alanine Aminotransferase 128 U/L (10-49); Albumin/Globulin Ratio 1.3 (1.2-2.2); Alkaline Phosphatase 117 U/L (46-116); Anion Gap 9 (7-16); Aspartate Amino Transferase 138 U/L (0-34); BUN/Creatinine Ratio 27 Ratio (12-20); Bilirubin,Total 0.3 mg/dL (0.3-1.2); Blood Urea Nitrogen 16 mg/dL (9-23); Calcium 9.5 mg/dL (8.3-10.6); Calcium (Corrected) 9.5 mg/dL (8.5-10.1); Carbon Dioxide 30.8 mMol/L (20.0-31.0); Chloride 103 mMol/L (98-107); Creatinine (Component) 0.6 mg/dL (0.6-1.3); Estimated Creatinine Clearance 81.8 mL/min (>60); Globulin 3.1 gm/dL (2.3-3.5); Glucose 140 mg/dL (74-106); Magnesium 2.1 mg/dL (1.6-2.6); Osmolality,Calculated 288 (275-295); Potassium 3.9 mMol/L (3.4-5.1); Sodium 143 mMol/L (136-145); Total Protein 7.1 gm/dL (5.7-8.2); eGFR > 60 See Note
[2024-12-25] MEDS: DOXYCYCLINE INJ 100 MG in SODIUM CHLORIDE 0.9% (POP) 100 ML IV ×2 (08:23→20:29)
[2024-12-25] MEDS: DIVALPROEX SOD 125 MG SPRINKLE 625 MG PO ×2 (08:23→20:29)
[2024-12-25] MEDS: POLYETHYLENE GLYCOL 17 GM PACKET PO (08:23)
[2024-12-25] MEDS: cefTRIAXone 1,000 MG in SODIUM CHLORIDE 0.9% (Popper) 50 ML 100 MG IV (08:23)
[2024-12-25] MEDS: PROPRANOLOL 10 MG TABLET 20 MG PO ×2 (08:24→20:29)
[2024-12-25] MEDS: DOCUSATE SOD 100 MG CAPSULE PO (08:24)
[2024-12-25] MEDS: ZIPRASIDONE 20 MG CAPSULE 40 MG PO ×2 (08:25→20:29)
[2024-12-25] MEDS: ATORVASTATIN CALCIUM 20 MG TABLET PO (08:25)
[2024-12-25] MEDS: PANTOPRAZOLE 40 MG TABLET PO (08:25)
[2024-12-25] MEDS: SENNOSIDES SYRUP 8.8 MG/5 ML UDC PO (09:00)
[2024-12-25] MEDS: IPRATROPIUM RT 0.5 MG/ 2.5 ML NEBU INH ×2 (10:32→20:19)
[2024-12-25 11:13] LABS: Cocci Serology, IgG Negative (Negative)
--- NOTE | 2024-12-25 15:17 | ESPR_ITS ---
<Statement entered by Dinah Denise MD - 12/25/24 17:01> I discussed with and supervised the sales intern physician who took care of this patient. I personally saw and examined the patient and discussed the assessment and plan with the entire medicine team, including my attending Dr. Nazario, I agree with the assessment and plan as documented below Patient seen and examined at bedside today. Labs and imaging reviewed. No overnight acute events This morning bedside patient saturating 93% on 6 L per nasal cannula. Labs today for significant for transaminitis possibly secondary to infection versus medication induced. Today patient continued to present hypoxia we will order tiotropium inhalations every 6 hours and we will wean off oxygen as tolerated. Case management is informed of the case and we will continue to monitor closely. Dinah Denise MD PGY-3 Disclaimer: Despite multiple revisions, due to the dictation software being used, the document bellow may not be free of grammatical errors including phonetic/typographic errors. However, this does not deter from our commitment to providing health care in the patient's best interest in mind. Documentation for date of: 12/25/24 Subjective Subjective Interval history: Patient seen today at the bedside fine awake, alert. No overnight events reported. Vital signs stable at this time. Labs significant for elevated transaminases trending up. Improved Ipratropium 0.5 mg x 1 and made it scheduled. Continue current management at this time. Exam Vital Signs Temp Pulse Resp BP Pulse Ox O2 Del Method O2 Flow Rate 97.2 F 80 24 H 115/60 96 Room Air 6 12/25/24 12:00 12/25/24 12:00 12/25/24 12:12/25/24 12:00 12/25/24 12:00 12/25/24 12:12/25/24 10:40 Narrative Exam Physical Exam GENERAL: NAD, awake, alert, developmentally delayed HEENT: Dry mucosa. Blind in the right eye CARDIO: Heart RRR, no obvious murmurs PULM: + coughing/dyspnea decreased air entry bilaterally GI: Abdomen soft, nondistended, no pain on palpation. BSx4 SKIN/MSK/EXT: No wounds/rashes/edema/amputations, no pain on palpation. Pedal pulses present B/L Objective Labs 12/26/24 05:08 12/26/24 05:08 Labs: Laboratory Results - last 24 hr 12/24/24 12/25/24 09:27 04:32 WBC 8.8 RBC 3.60 L Hgb 11.0 L Hct 33.2 L MCV 92 MCH 30.6 MCHC 33.1 RDW Std Deviation 42.6 Plt Count 185 Neut % (Auto) 67 Lymph % (Auto) 15 [place] % (Auto) 16 H Eos % (Auto) 0 Baso % (Auto) 1 Neut # (Auto) 5.9 Lymph # (Auto) 1.4 [place] # (Auto) 1.4 H Eos # (Auto) 0.0 Baso # (Auto) 0.0 Immature Gran # (Auto) 0.09 H Absolute Nucleated RBC 0.00 Immature Gran % 1 H Nucleated RBC % 0 Sodium 143 Potassium 3.9 Chloride 103 Carbon Dioxide 30.8 Anion Gap 9 BUN 16 Creatinine 0.6 Estim Creat Clear Calc 81.8 eGFR > 60 BUN/Creatinine Ratio 27 H Glucose 140 H Calculated Osmolality 288 Calcium 9.5 Corrected Calcium 9.5 Magnesium 2.1 Total Bilirubin 0.3 AST 138 H ALT 128 H Alkaline Phosphatase 117 H D Total Protein 7.1 Albumin 4.0 Globulin 3.1 Albumin/Globulin Ratio 1.3 Coccidioides IgG Ab Negative Quality Measures Quality Measures none Assessment & Plan Assessment Current Active Medications: Generic Name Dose Route Start Last Admin Trade Name Freq PRN Reason Stop Dose Admin Acetaminophen 650 mg 12/23/24 16:23 12/23/24 16:51 Acetaminophen 325 Mg Tablet PO 01/22/25 16:22 650 mg Q6H PRN Administration Fever >100.5 Acetaminophen 650 mg 12/23/24 16:23 Acetaminophen 325 Mg Tablet PO 01/22/25 16:22 Q6H PRN PAIN SCALE 1-3 (mild Atorvastatin Calcium 20 mg 12/24/24 09:00 12/25/24 08:25 Atorvastatin Calcium 20 Mg Tablet PO 01/23/25 08:59 20 mg QDAY ABBY Administration Dextrose 25 ml 12/23/24 16:32 Dextrose 50%-Water Inj 50 Ml Syringe IV 01/22/25 16:31 Q15MIN PRN BG 50-70 responsive npo pt Dextrose 50 ml 12/23/24 16:32 Dextrose 50%-Water Inj 50 Ml Syringe IV 01/22/25 16:31 Q15MIN PRN BG <50 OR BG <70 & pt unresponsive Divalproex Sodium 625 mg 12/24/24 14:45 12/25/24 08:23 Divalproex Sod 125 Mg Sprinkle PO 01/23/25 14:44 625 mg BID ABBY Administration Docusate Sodium 100 mg 12/23/24 16:30 12/25/24 08:24 Docusate Sod 100 Mg Capsule PO 01/22/25 16:29 100 mg QDAY ABBY Administration Protocol Glucagon 1 mg 12/23/24 16:32 Glucagon Inj 1 Mg Vial IM Q15MIN PRN BG <70, and no IV access Heparin Sodium (Porcine) 5,000 unit 12/23/24 22:00 12/25/24 13:28 Heparin Sod Inj 5000 Unit/Ml Vial SC 01/06/25 21:59 5,000 unit Q8HR ABBY Administration Ceftriaxone Sodium 1,000 mg/ 50 mls @ 100 mls/hr 12/24/24 09:00 12/25/24 08:23 Sodium Chloride IV 12/31/24 08:59 100 mls/hr QDAY ABBY Administration Doxycycline Hyclate 100 mg/ 100 mls @ 100 mls/hr 12/23/24 21:00 12/25/24 08:23 Sodium Chloride IV 12/30/24 20:59 100 mls/hr BID ABBY Administration Insulin Human Lispro 0 unit 12/23/24 17:00 12/25/24 12:34 Insulin Lispro (Admelog) 1 Unit/0.01 Ml Unit SC 01/22/25 16:59 Not Given AC ABBY Protocol Mirtazapine 15 mg 12/24/24 21:00 12/24/24 20:34 Mirtazapine 15 Mg Tablet PO 01/23/25 20:59 15 mg HS ABBY Administration Ondansetron HCl 4 mg 12/23/24 16:23 Ondansetron Inj 2 Mg/Ml Inj 2 Ml IV 01/22/25 16:22 Q6H PRN NAUSEA OR VOMITING Protocol Pantoprazole Sodium 40 mg 12/24/24 09:00 12/25/24 08:25 Pantoprazole 40 Mg Tablet PO 01/23/25 08:59 40 mg QDAY ABBY Administration Polyethylene Glycol 17 gm 12/24/24 09:00 12/25/24 08:23 Polyethylene Glycol 17 Gm Packet PO 01/23/25 08:59 17 gm QDAY ABYB Administration Propranolol HCl 20 mg 12/24/24 14:45 12/25/24 08:24 Propranolol 10 Mg Tablet PO 01/23/25 14:44 20 mg BID ABBY Administration Sennosides 8.8 mg 12/23/24 16:45 Sennosides Syrup 8.8 Mg/5 Ml Udc PO 01/22/25 16:44 QDAY ABBY Protocol Ziprasidone 40 mg 12/24/24 14:45 12/25/24 08:25 Ziprasidone 20 Mg Capsule PO 01/23/25 14:44 40 mg BID ABBY Administration Plan 64-year-old female with past medical history of type 2 diabetes (not on any medications), developmentally delayed, nonverbal at baseline, hyperlipidemia, schizoaffective disorder who was brought into the ED by caregiver due to generalized weakness. Per the caregiver patient has been progressively getting more lethargic for the past 3 days. Patient at baseline is wheelchair-bound but would stand with assistance however in the past days patient has lost interest in her usual daily activities. Patient has had poor appetite and would just spit out the food. Patient also has cough productive of white-yellowish phlegm. Admitted for acute hypoxic respiratory failure secondary to community-acquired pneumonia. #Acute hypoxic respiratory failure secondary to #Community-acquired pneumonia #Acute encephalopathy #Generalized weakness Per caregiver patient has become more lethargic and less active than her baseline Patient is usually active at the home she lives in however when I saw the patient is very lethargic, very sleepy Patient is nonverbal at baseline On arrival the patient was saturating 92% on room air On examination decreased bilateral breath sounds Chest x-ray shows bilateral pneumonia Lactic acid normal, Procalcitonin negative Cocci negative, RSV negative, COVID and flu negative Blood cultures negative in 24 hours ? On ceftriaxone ? On doxycycline ? Ipratropium 0.5 mg every 6 hours ? Sputum cultures ordered #Elevated liver enzymes Likely secondary to infectious process ? Monitor at this time #Hyperlipidemia ? Resume atorvastatin 20 mg daily #Diabetes mellitus Caregiver states patient does not take any medications for diabetes However blood sugars are above the 200s A1c 6.3 ? SSI ? Hypoglycemia protocol in place #Developmentally delayed #Schizoaffective disorder Apparently patient takes Depakote and other medications however medications not showing on EMR ? Depakote resumed ? Ziprasidone resumed as taken at home #History of constipation Per caregiver patient has history of constipation has not had a bowel movement in more than 3 days she takes docusate and MiraLAX at home ? Senna ? Docusate ? MiraLAX Case discussed with my senior Dr. Denise PGY-[address] Aravind Calabrese MD PGY-1 Disposition: Med telemetry Fluids: None Feeding: Carb consistent Thrombo prophylaxis: Heparin Gastric Ulcer prophylaxis: Pantoprazole CODE STATUS: Full code Attending Provider Attestation/Addendum Hiwot Peng, , attest that I was physically present for the grissom portions of the service and evaluated the patient with the resident and I reviewed and discussed the case with the resident and agree with the resident's findings and plans of care as documented above Patient seen eval this a.m. She is currently on 5 L nasal cannula. She has no acute respiratory distress. Facility is unable to accommodate supplemental O2. Will continue to titrate O2 as tolerated. No rales or rhonchi noted on exam. Patient remains at baseline mental status. No plate washer at bedside. Continue with IV antibiotics and breathing treatments.
[2024-12-25] MEDS: MIRTAZAPINE 15 MG TABLET PO (20:30)
[2024-12-26] VITALS (14 sets, daily range): BP systolic 125–147; BP diastolic 69–90; PULSE 74–87; RESP 16–24; TEMP 36.3–36.7; O2SAT 87–99
[2024-12-26] MEDS: IPRATROPIUM RT 0.5 MG/ 2.5 ML NEBU INH ×4 (02:06→19:22)
[2024-12-26] MEDS: HEPARIN SOD INJ 5000 UNIT/ML VIAL SC ×3 (05:17→21:12)
[2024-12-26 06:25] LABS: Basophils # (Auto) 0.1 Thou/mm3 (0.0-0.2); Basophils % (Auto) 1 % (0-2.5); Eosinophils % (Auto) 0 % (0-10); Hemoglobin 11.2 g/dL (12.0-16.0); Immature Granulocytes % (Auto) 1 % (0-0); Immature Granulocytes Auto 0.12 Thou/mm3 (0.00-0.00); Lymphocytes # (Auto) 1.3 Thou/mm3 (1.0-4.8); Lymphocytes % (Auto) 14 % (10-50); Mean Corpuscular HGB Conc 33.9 g/dl (31.0-37.0); Mean Corpuscular Hemoglobin 31.2 pg (25.0-35.0); Mean Corpuscular Volume 92 fL (80-100); Monocytes # (Auto) 1.1 Thou/mm3 (0.0-0.8); Monocytes % (Auto) 13 % (0-12); Neutrophils # (Auto) 6.3 Thou/mm3 (1.8-7.7); Neutrophils % (Auto) 71 % (37-80); Nucleated Red Blood Cell % 0 /100 WBC (0); Platelet Count 220 Thou/mm3 (140-440); RDW Standard Deviation 41.2 fL (36.4-46.3); Red Blood Count 3.59 Miln/mm3 (4.00-5.20); White Blood Count 8.8 Thou/mm3 (3.6-11.0)
[2024-12-26 06:42] LABS: Alanine Aminotransferase 94 U/L (10-49); Albumin, Serum 3.8 gm/dL (3.4-4.8); Albumin/Globulin Ratio 1.2 (1.2-2.2); Alkaline Phosphatase 115 U/L (46-116); Anion Gap 6 (7-16); Aspartate Amino Transferase 78 U/L (0-34); BUN/Creatinine Ratio 23 Ratio (12-20); Bilirubin,Total 0.3 mg/dL (0.3-1.2); Blood Urea Nitrogen 14 mg/dL (9-23); Calcium 9.1 mg/dL (8.3-10.6); Calcium (Corrected) 9.3 mg/dL (8.5-10.1); Carbon Dioxide 32.5 mMol/L (20.0-31.0); Chloride 101 mMol/L (98-107); Creatinine (Component) 0.6 mg/dL (0.6-1.3); Estimated Creatinine Clearance 81.8 mL/min (>60); Globulin 3.1 gm/dL (2.3-3.5); Glucose 141 mg/dL (74-106); Magnesium 2.2 mg/dL (1.6-2.6); Osmolality,Calculated 280 (275-295); Potassium 3.8 mMol/L (3.4-5.1); Sodium 139 mMol/L (136-145); Total Protein 6.9 gm/dL (5.7-8.2); eGFR > 60 See Note
--- NOTE | 2024-12-26 07:24 | PD.RESPRO ---
Documentation for date of: 12/26/24 Subjective Subjective Interval history: Overnight patient was desatting to 83% on 6 L oxy mask This morning the bedside per patient nurse they are having trouble with pulse oximeter otherwise patient saturations fluctuates between 91% and go down to as low to 83% on 6 L per oxy mask for which we order high flow nasal cannula and SpO2 improved to 99% on 40 L FiO2 80%. Follow-up chest x-ray showed show right pleural effusion for which Dr. Malin was called for consent for right ultrasound-guided thoracentesis and pleural fluid analysis Exam Vital Signs Temp Pulse Resp BP Pulse Ox O2 Del Method O2 Flow Rate 98.0 F 87 18 142/90 H 92 L Room Air 5 12/26/24 04:00 12/26/24 06:29 12/26/24 06:29 12/26/24 04:00 12/26/24 06:29 12/26/24 04:00 12/26/24 06:29 Narrative Exam General: No acute distress, frail. HEENT: NC/AT, PERRL, EOMI, moist mucous membranes. Neck: Supple, No masses, No adenopathy, carotid pulse 2+ bilaterally without bruits, No JVD, normal range of motion. Chest: Symmetrical, atraumatic, and with equal expansion , Nontender on palpation no deformity and no crepitus. CVS: S1 and S2 present, Regular rate and rhythm, No murmurs, rubs or gallops perceived during auscultation. Lungs: Normal respiratory effort, diminished breath sounds on right lung bases, coarse breath sounds bilaterally and mobilizing secretions Abdomen : Soft, no tenderness to palpation, no guarding ,no rebound, +BS Extremities: No edema, warm well perfused, normal tone and ROM, strength and sensation intact, cap refill less than 2, able to move all 4 extremities spontaneously. Skin: Intact, no rashes, no lesions, no erythema or jaundice noted Neuro: Difficult to assess due to patient mentation based Psych: Difficult to assess patient mental status Objective Labs 12/26/24 05:08 12/26/24 05:08 Labs: Laboratory Results - last 24 hr 12/24/24 12/26/24 09:27 05:08 WBC 8.8 RBC 3.59 L Hgb 11.2 L Hct 33.0 L MCV 92 MCH 31.2 MCHC 33.9 RDW Std Deviation 41.2 Plt Count 220 D Neut % (Auto) 71 Lymph % (Auto) 14 [place] % (Auto) 13 H Eos % (Auto) 0 Baso % (Auto) 1 Neut # (Auto) 6.3 Lymph # (Auto) 1.3 [place] # (Auto) 1.1 H Eos # (Auto) 0.0 Baso # (Auto) 0.1 Immature Gran # (Auto) 0.12 H Absolute Nucleated RBC 0.00 Immature Gran % 1 H Nucleated RBC % 0 Sodium 139 Potassium 3.8 Chloride 101 Carbon Dioxide 32.5 H Anion Gap 6 L BUN 14 Creatinine 0.6 Estim Creat Clear Calc 81.8 eGFR > 60 BUN/Creatinine Ratio 23 H Glucose 141 H Calculated Osmolality 280 Calcium 9.1 Corrected Calcium 9.3 Magnesium 2.2 Total Bilirubin 0.3 AST 78 H ALT 94 H Alkaline Phosphatase 115 Total Protein 6.9 Albumin 3.8 Globulin 3.1 Albumin/Globulin Ratio 1.2 Coccidioides IgG Ab Negative Quality Measures Quality Measures none Assessment & Plan Assessment Current Active Medications: Generic Name Dose Route Start Last Admin Trade Name Freq PRN Reason Stop Dose Admin Acetaminophen 650 mg 12/23/24 16:23 12/23/24 16:51 Acetaminophen 325 Mg Tablet PO 01/22/25 16:22 650 mg Q6H PRN Administration Fever >100.5 Acetaminophen 650 mg 12/23/24 16:23 Acetaminophen 325 Mg Tablet PO 01/22/25 16:22 Q6H PRN PAIN SCALE 1-3 (mild Atorvastatin Calcium 20 mg 12/24/24 09:00 12/25/24 08:25 Atorvastatin Calcium 20 Mg Tablet PO 01/23/25 08:59 20 mg QDAY ABBY Administration Dextrose 25 ml 12/23/24 16:32 Dextrose 50%-Water Inj 50 Ml Syringe IV 01/22/25 16:31 Q15MIN PRN BG 50-70 responsive npo pt Dextrose 50 ml 12/23/24 16:32 Dextrose 50%-Water Inj 50 Ml Syringe IV 01/22/25 16:31 Q15MIN PRN BG <50 OR BG <70 & pt unresponsive Divalproex Sodium 625 mg 12/24/24 14:45 12/25/24 20:29 Divalproex Sod 125 Mg Sprinkle PO 01/23/25 14:44 625 mg BID ABBY Administration Docusate Sodium 100 mg 12/23/24 16:30 12/25/24 08:24 Docusate Sod 100 Mg Capsule PO 01/22/25 16:29 100 mg QDAY ABBY Administration Protocol Glucagon 1 mg 12/23/24 16:32 Glucagon Inj 1 Mg Vial IM Q15MIN PRN BG <70, and no IV access Heparin Sodium (Porcine) 5,000 unit 12/23/24 22:00 12/26/24 05:17 Heparin Sod Inj 5000 Unit/Ml Vial SC 01/06/25 21:59 5,000 unit Q8HR ABBY Administration Ceftriaxone Sodium 1,000 mg/ 50 mls @ 100 mls/hr 12/24/24 09:00 12/25/24 08:23 Sodium Chloride IV 12/31/24 08:59 100 mls/hr QDAY ABBY Administration Doxycycline Hyclate 100 mg/ 100 mls @ 100 mls/hr 12/23/24 21:00 12/25/24 20:29 Sodium Chloride IV 12/30/24 20:59 100 mls/hr BID ABBY Administration Insulin Human Lispro 0 unit 12/23/24 17:00 12/25/24 17:11 Insulin Lispro (Admelog) 1 Unit/0.01 Ml Unit SC 01/22/25 16:59 Not Given AC ABBY Protocol Ipratropium [place] 0.5 mg 12/25/24 19:00 12/26/24 06:29 Ipratropium Rt 0.5 Mg/ 2.5 Ml Nebu INH 01/24/25 18:59 0.5 mg Q6HRRT ABBY Administration Mirtazapine 15 mg 12/24/24 21:00 12/25/24 20:30 Mirtazapine 15 Mg Tablet PO 01/23/25 20:59 15 mg HS ABBY Administration Ondansetron HCl 4 mg 12/23/24 16:23 Ondansetron Inj 2 Mg/Ml Inj 2 Ml IV 01/22/25 16:22 Q6H PRN NAUSEA OR VOMITING Protocol Pantoprazole Sodium 40 mg 12/24/24 09:00 12/25/24 08:25 Pantoprazole 40 Mg Tablet PO 01/23/25 08:59 40 mg QDAY ABBY Administration Polyethylene Glycol 17 gm 12/24/24 09:00 12/25/24 08:23 Polyethylene Glycol 17 Gm Packet PO 01/23/25 08:59 17 gm QDAY ABBY Administration Propranolol HCl 20 mg 12/24/24 14:45 12/25/24 20:29 Propranolol 10 Mg Tablet PO 01/23/25 14:44 20 mg BID ABBY Administration Sennosides 8.8 mg 12/23/24 16:45 12/25/24 09:00 Sennosides Syrup 8.8 Mg/5 Ml Udc PO 01/22/25 16:44 8.8 mg QDAY ABBY Administration Protocol Ziprasidone 40 mg 12/24/24 14:45 12/25/24 20:29 Ziprasidone 20 Mg Capsule PO 01/23/25 14:44 40 mg BID ABBY Administration Plan 64-year-old female with past medical history of type 2 diabetes (not on any medications), developmentally delayed, nonverbal at baseline, hyperlipidemia, schizoaffective disorder who was brought into the ED by caregiver due to generalized weakness. Per the caregiver patient has been progressively getting more lethargic for the past 3 days. Patient at baseline is wheelchair-bound but would stand with assistance however in the past days patient has lost interest in her usual daily activities. Patient has had poor appetite and would just spit out the food. Patient also has cough productive of white-yellowish phlegm. Admitted for acute hypoxic respiratory failure secondary to community-acquired pneumonia. #Acute hypoxic respiratory failure Most likely secondary to community-acquired pneumonia Chest x-ray shows bilateral pneumonia Lactic acid normal, Procalcitonin negative Cocci negative, RSV negative, COVID and flu negative Blood cultures negative in 24 hours ? Continue ceftriaxone ? Continue doxycycline ? Ipratropium 0.5 mg every 6 hours ? Continue high flow nasal cannula and wean off oxygen as tolerated ? Continue O2 to keep SpO2 above 92% #Right pleural effusion Most likely parapneumonic effusion Less likely malignancy Follow-up x-ray showed right pleural effusion Patient is conserved Dr. Malin gave consent by the phone for right ultrasound-guided thoracentesis ? Pending right ultrasound guided thoracentesis ? Pending pleural fluid analysis and cytology #Transaminitis Likely secondary to infection Downtrending ? Follow-up CMP #Hyperlipidemia ? Continue atorvastatin 20 mg daily #Diabetes mellitus type 2 insulin-dependent Caregiver states patient does not take any medications for diabetes However blood sugars are above the 200s A1c 6.3 ? SSI ? Hypoglycemia protocol in place #Developmentally delayed #Schizoaffective disorder Apparently patient takes Depakote and other medications however medications not showing on EMR ? Continue Depakote ? Continue ziprasidone #History of constipation Per caregiver patient has history of constipation has not had a bowel movement in more than 3 days she takes docusate and MiraLAX at home ? Senna ? Docusate ? MiraLAX Patient discussed with attending Dr Aravind Denise MD PGY-3 Disposition: Med telemetry Fluids: None Feeding: Carb consistent Thrombo prophylaxis: Heparin Gastric Ulcer prophylaxis: Pantoprazole CODE STATUS: Full code/patient is conserved/Dr. Malin gave consent by phone for ultrasound-guided thoracentesis Disclaimer: Despite multiple revisions, due to the dictation software being used, the document bellow may not be free of grammatical errors including phonetic/typographic errors. However, this does not deter from our commitment to providing health care in the patient's best interest in mind. Attending Provider Attestation/Addendum Ginette, Hiwot Nazario DO, attest that I was physically present for the grissom portions of the service and evaluated the patient with the resident and I reviewed and discussed the case with the resident and agree with the resident's findings and plans of care as documented above Patient seen and evaluated this AM. Patient currently requiring HFNC with FiO2 of 100% and flow of 40L/min. Repeat CXR shows right pleural effusion. Plan for thorascentesis in AM. Will order echocardiogram. Consent obtained from Dr. Malin from [facility]. Will order fluid studies and cytology. Patient ate well per nursing and has been more alert this morning. No acute events overnight otherwise.
[2024-12-26] MEDS: SENNOSIDES SYRUP 8.8 MG/5 ML UDC PO (09:21)
[2024-12-26] MEDS: ZIPRASIDONE 20 MG CAPSULE 40 MG PO ×2 (09:22→21:05)
[2024-12-26] MEDS: PROPRANOLOL 10 MG TABLET 20 MG PO ×2 (09:22→21:05)
[2024-12-26] MEDS: DOCUSATE SOD 100 MG CAPSULE PO (09:27)
[2024-12-26] MEDS: DOXYCYCLINE INJ 100 MG in SODIUM CHLORIDE 0.9% (POP) 100 ML IV ×2 (09:28→21:52)
[2024-12-26] MEDS: cefTRIAXone 1,000 MG in SODIUM CHLORIDE 0.9% (Popper) 50 ML 100 MG IV (09:28)
[2024-12-26] MEDS: PANTOPRAZOLE 40 MG TABLET PO (09:29)
--- NOTE | 2024-12-26 09:35 | PC.NURSE ---
pt. O2 is running between 87-88% on 6 L NC . Pt. taking off the Oxy mask. MD been notified per MD start pt. on High flow.
[2024-12-26] MEDS: DIVALPROEX SOD 125 MG SPRINKLE 625 MG PO ×2 (09:56→21:04)
[2024-12-26] MEDS: ATORVASTATIN CALCIUM 20 MG TABLET PO (09:56)
[2024-12-26] MEDS: POLYETHYLENE GLYCOL 17 GM PACKET PO (09:57)
--- NOTE | 2024-12-26 10:20 | PC.NURSE ---
RT on bedside start pt. on 40 L/min with 100% O@ pt. saturating 93 %
--- NOTE | 2024-12-26 12:02 | XR_ITS ---
Examination: AP chest single view Technique one AP portable semiupright chest single view Exam date and time: December 26, 2024 1219 hrs. Indications: Hypoxia today. Findings: Mild chronic heart failure Mild enlargement cardiac contour Prominent vascular congestion with perihilar edema Left basilar pneumonia Atelectasis and possible pleural fluid right lower hemithorax Impression: Mild heart failure Pneumonia left base
[2024-12-26] MEDS: MIRTAZAPINE 15 MG TABLET PO (21:05)
[2024-12-27] VITALS (13 sets, daily range): BP systolic 118–148; BP diastolic 74–85; PULSE 70–92; RESP 15–86; TEMP 36.2–36.6; O2SAT 87–96
[2024-12-27] MEDS: IPRATROPIUM RT 0.5 MG/ 2.5 ML NEBU INH ×5 (01:58→23:14)
[2024-12-27] MEDS: HEPARIN SOD INJ 5000 UNIT/ML VIAL SC ×2 (05:25→14:02)
[2024-12-27 06:17] LABS: Basophils # (Auto) 0.1 Thou/mm3 (0.0-0.2); Basophils % (Auto) 1 % (0-2.5); Eosinophils # (Auto) 0.1 Thou/mm3 (0.0-0.5); Eosinophils % (Auto) 1 % (0-10); Hematocrit 32.1 % (36.0-46.0); Hemoglobin 10.8 g/dL (12.0-16.0); Immature Granulocytes % (Auto) 2 % (0-0); Immature Granulocytes Auto 0.13 Thou/mm3 (0.00-0.00); Lymphocytes # (Auto) 1.5 Thou/mm3 (1.0-4.8); Lymphocytes % (Auto) 21 % (10-50); Mean Corpuscular HGB Conc 33.6 g/dl (31.0-37.0); Mean Corpuscular Hemoglobin 31.1 pg (25.0-35.0); Mean Corpuscular Volume 93 fL (80-100); Monocytes # (Auto) 0.9 Thou/mm3 (0.0-0.8); Monocytes % (Auto) 12 % (0-12); Neutrophils # (Auto) 4.6 Thou/mm3 (1.8-7.7); Neutrophils % (Auto) 64 % (37-80); Nucleated Red Blood Cell % 0 /100 WBC (0); Platelet Count 252 Thou/mm3 (140-440); RDW Standard Deviation 41.7 fL (36.4-46.3); Red Blood Count 3.47 Miln/mm3 (4.00-5.20); White Blood Count 7.2 Thou/mm3 (3.6-11.0)
[2024-12-27 06:30] LABS: Alanine Aminotransferase 72 U/L (10-49); Albumin, Serum 3.7 gm/dL (3.4-4.8); Albumin/Globulin Ratio 1.2 (1.2-2.2); Alkaline Phosphatase 107 U/L (46-116); Anion Gap 6 (7-16); Aspartate Amino Transferase 55 U/L (0-34); BUN/Creatinine Ratio 28 Ratio (12-20); Bilirubin,Total 0.2 mg/dL (0.3-1.2); Blood Urea Nitrogen 17 mg/dL (9-23); Calcium 9.4 mg/dL (8.3-10.6); Calcium (Corrected) 9.6 mg/dL (8.5-10.1); Carbon Dioxide 32.4 mMol/L (20.0-31.0); Chloride 104 mMol/L (98-107); Creatinine (Component) 0.6 mg/dL (0.6-1.3); Estimated Creatinine Clearance 81.8 mL/min (>60); Glucose 122 mg/dL (74-106); Magnesium 2.3 mg/dL (1.6-2.6); Osmolality,Calculated 285 (275-295); Sodium 142 mMol/L (136-145); Total Protein 6.7 gm/dL (5.7-8.2); eGFR > 60 See Note
--- NOTE | 2024-12-27 08:57 | PC.SS ---
Follow up note: Patient currently on high flow 02. Not medically stable for discharge.
[2024-12-27] MEDS: cefTRIAXone 1,000 MG in SODIUM CHLORIDE 0.9% (Popper) 50 ML 100 MG IV (09:18)
[2024-12-27] MEDS: DOXYCYCLINE INJ 100 MG in SODIUM CHLORIDE 0.9% (POP) 100 ML IV ×2 (10:21→20:51)
--- NOTE | 2024-12-27 11:48 | ESPR_ITS ---
Documentation for date of: 12/27/24 Subjective Subjective Interval history: Patient seen today at the bedside. No overnight events reported. Vital signs stable at this time saturating 91% on high flow nasal cannula. Patient was evaluated by doctor of medicine Dr. Garcia was evaluated with bedside ultrasound of right pleural effusion however amount of fluid was not enough to tap. Will continue with IV Abx therapy. Exam Vital Signs Temp Pulse Resp BP Pulse Ox O2 Del Method O2 Flow Rate 97.3 F 79 20 126/85 H 93 L High Flow Nasal Cannula 40 12/27/24 08:00 12/27/24 10:06 12/27/24 10:06 12/27/24 08:00 12/27/24 10:06 12/27/24 08:00 12/27/24 10:06 FiO2 100 12/27/24 10:06 Narrative Exam Physical Exam GENERAL: NAD, awake, alert, developmentally delayed HEENT: Dry mucosa. Blind in the right eye CARDIO: Heart RRR, no obvious murmurs PULM: + coughing/dyspnea decreased air entry bilaterally GI: Abdomen soft, nondistended, no pain on palpation. BSx4 SKIN/MSK/EXT: No wounds/rashes/edema/amputations, no pain on palpation. Pedal pulses present B/L Objective Labs 12/28/24 05:23 12/28/24 05:23 Labs: Laboratory Results - last 24 hr 12/27/24 05:28 WBC 7.2 RBC 3.47 L Hgb 10.8 L Hct 32.1 L MCV 93 MCH 31.1 MCHC 33.6 RDW Std Deviation 41.7 Plt Count 252 D Neut % (Auto) 64 Lymph % (Auto) 21 [place] % (Auto) 12 Eos % (Auto) 1 Baso % (Auto) 1 Neut # (Auto) 4.6 Lymph # (Auto) 1.5 [place] # (Auto) 0.9 H Eos # (Auto) 0.1 Baso # (Auto) 0.1 Immature Gran # (Auto) 0.13 H Absolute Nucleated RBC 0.00 Immature Gran % 2 H Nucleated RBC % 0 Sodium 142 Potassium 4.0 Chloride 104 Carbon Dioxide 32.4 H Anion Gap 6 L BUN 17 Creatinine 0.6 Estim Creat Clear Calc 81.8 eGFR > 60 BUN/Creatinine Ratio 28 H Glucose 122 H Calculated Osmolality 285 Calcium 9.4 Corrected Calcium 9.6 Magnesium 2.3 Total Bilirubin 0.2 L AST 55 H ALT 72 H Alkaline Phosphatase 107 Total Protein 6.7 Albumin 3.7 Globulin 3.0 Albumin/Globulin Ratio 1.2 Quality Measures Quality Measures none Assessment & Plan Assessment Current Active Medications: Generic Name Dose Route Start Last Admin Trade Name Freq PRN Reason Stop Dose Admin Acetaminophen 650 mg 12/23/24 16:23 12/23/24 16:51 Acetaminophen 325 Mg Tablet PO 01/22/25 16:22 650 mg Q6H PRN Administration Fever >100.5 Acetaminophen 650 mg 12/23/24 16:23 Acetaminophen 325 Mg Tablet PO 01/22/25 16:22 Q6H PRN PAIN SCALE 1-3 (mild Atorvastatin Calcium 20 mg 12/24/24 09:00 12/27/24 11:28 Atorvastatin Calcium 20 Mg Tablet PO 01/23/25 08:59 Not Given QDAY [facility] Dextrose 25 ml 12/23/24 16:32 Dextrose 50%-Water Inj 50 Ml Syringe IV 01/22/25 16:31 Q15MIN PRN BG 50-70 responsive npo pt Dextrose 50 ml 12/23/24 16:32 Dextrose 50%-Water Inj 50 Ml Syringe IV 01/22/25 16:31 Q15MIN PRN BG <50 OR BG <70 & pt unresponsive Divalproex Sodium 625 mg 12/24/24 14:45 12/27/24 11:28 Divalproex Sod 125 Mg Sprinkle PO 01/23/25 14:44 Not Given BID ABBY Docusate Sodium 100 mg 12/23/24 16:30 12/27/24 11:28 Docusate Sod 100 Mg Capsule PO 01/22/25 16:29 Not Given QDAY [facility] Protocol Glucagon 1 mg 12/23/24 16:32 Glucagon Inj 1 Mg Vial IM Q15MIN PRN BG <70, and no IV access Heparin Sodium (Porcine) 5,000 unit 12/23/24 22:00 12/27/24 05:25 Heparin Sod Inj 5000 Unit/Ml Vial SC 01/06/25 21:59 5,000 unit Q8HR ABBY Administration Ceftriaxone Sodium 1,000 mg/ 50 mls @ 100 mls/hr 12/24/24 09:00 12/27/24 09:18 Sodium Chloride IV 12/31/24 08:59 100 mls/hr QDAY ABBY Administration Doxycycline Hyclate 100 mg/ 100 mls @ 100 mls/hr 12/23/24 21:00 12/27/24 10:21 Sodium Chloride IV 12/30/24 20:59 100 mls/hr BID ABBY Administration Insulin Human Lispro 0 unit 12/23/24 17:00 12/27/24 07:44 Insulin Lispro (Admelog) 1 Unit/0.01 Ml Unit SC 01/22/25 16:59 Not Given AC ABBY Protocol Ipratropium [place] 0.5 mg 12/25/24 19:00 12/27/24 06:59 Ipratropium Rt 0.5 Mg/ 2.5 Ml Nebu INH 01/24/25 18:59 0.5 mg Q6HRRT ABBY Administration Mirtazapine 15 mg 12/24/24 21:00 12/26/24 21:05 Mirtazapine 15 Mg Tablet PO 01/23/25 20:59 15 mg HS ABBY Administration Ondansetron HCl 4 mg 12/23/24 16:23 Ondansetron Inj 2 Mg/Ml Inj 2 Ml IV 01/22/25 16:22 Q6H PRN NAUSEA OR VOMITING Protocol Pantoprazole Sodium 40 mg 12/24/24 09:00 12/27/24 11:28 Pantoprazole 40 Mg Tablet PO 01/23/25 08:59 Not Given QDAY ABBY Polyethylene Glycol 17 gm 12/24/24 09:00 12/27/24 11:28 Polyethylene Glycol 17 Gm Packet PO 01/23/25 08:59 Not Given QDAY ABBY Propranolol HCl 20 mg 12/24/24 14:45 12/27/24 11:28 Propranolol 10 Mg Tablet PO 01/23/25 14:44 Not Given BID ABBY Sennosides 8.8 mg 12/23/24 16:45 12/26/24 09:21 Sennosides Syrup 8.8 Mg/5 Ml Udc PO 01/22/25 16:44 8.8 mg QDAY ABBY Administration Protocol Ziprasidone 40 mg 12/24/24 14:45 12/27/24 11:29 Ziprasidone 20 Mg Capsule PO 01/23/25 14:44 Not Given BID ABBY Plan 64-year-old female with past medical history of type 2 diabetes (not on any medications), developmentally delayed, nonverbal at baseline, hyperlipidemia, schizoaffective disorder who was brought into the ED by caregiver due to generalized weakness. Per the caregiver patient has been progressively getting more lethargic for the past 3 days. Patient at baseline is wheelchair-bound but would stand with assistance however in the past days patient has lost interest in her usual daily activities. Patient has had poor appetite and would just spit out the food. Patient also has cough productive of white-yellowish phlegm. Admitted for acute hypoxic respiratory failure secondary to community-acquired pneumonia. #Acute hypoxic respiratory failure likely secondary to community-acquired pneumonia Per caregiver patient has become more lethargic and less active than her baseline Chest x-ray shows bilateral pneumonia Lactic acid normal, Procalcitonin negative Cocci negative, RSV negative, COVID and flu negative Blood cultures negative in 48 hours ? Continue ceftriaxone ? Continue doxycycline ? Ipratropium 0.5 mg every 6 hours ? Continue high flow nasal cannula and wean off oxygen as tolerated ? Continue O2 to keep SpO2 above 92% #Right pleural effusion Most likely parapneumonic effusion Less likely malignancy Follow-up x-ray showed right pleural effusion Patient is conserved Dr. Malin gave consent by the phone for right ultrasound- guided thoracentesis Bedside ultrasound was done not enough fluid was found to be tapped at this time. #Transaminitis Likely secondary to infection Downtrending ? Follow-up CMP #Hyperlipidemia ? Continue atorvastatin 20 mg daily #Diabetes mellitus type 2 insulin-dependent Caregiver states patient does not take any medications for diabetes However blood sugars are above the 200s A1c 6.3 ? SSI ? Hypoglycemia protocol in place #Developmentally delayed #Schizoaffective disorder Apparently patient takes Depakote and other medications however medications not showing on EMR ? Continue Depakote ? Continue ziprasidone #History of constipation Per caregiver patient has history of constipation has not had a bowel movement in more than 3 days she takes docusate and MiraLAX at home ? Senna ? Docusate ? MiraLAX Case discussed with attending Dr Aravind Calabrese MD PGY-1 Disposition: Med telemetry Fluids: None Feeding: Carb consistent Thrombo prophylaxis: Heparin Gastric Ulcer prophylaxis: Pantoprazole CODE STATUS: Full code/patient is conserved Disclaimer: Despite multiple revisions, due to the dictation software being used, the document bellow may not be free of grammatical errors including phonetic/typographic errors. However, this does not deter from our commitment to providing health care in the patient's best interest in mind. Attending Provider Attestation/Addendum IHiwot DO, attest that I was physically present for the grissom portions of the service and evaluated the patient with the resident and I reviewed and discussed the case with the resident and agree with the resident's findings and plans of care as documented above Patient seen and evaluated this AM. Minimal fluid safe for thorascentesis. Patient has a significantly raise hemidiaphragm which will be difficult to wean patient off high flow. Patient has some thick productive sputum, will add mucomyst and chest PT with breathing treatments.
[2024-12-27] MEDS: INSULIN LISPRO (AdmeLOG) 1 UNIT/0.01 ML UNIT SC (12:06)
[2024-12-27] MEDS: ACETYLCYSTEINE RT SOL 10% 4 ML NEBU 3 ML INH ×2 (17:07→23:14)
[2024-12-27] MEDS: PROPRANOLOL 10 MG TABLET 20 MG PO (21:13)
[2024-12-27] MEDS: DIVALPROEX SOD 125 MG SPRINKLE 625 MG PO (21:13)
[2024-12-27] MEDS: ZIPRASIDONE 20 MG CAPSULE 40 MG PO (21:13)
[2024-12-27] MEDS: MIRTAZAPINE 15 MG TABLET PO (21:13)
[2024-12-27 21:28] LABS: Base Excess 8 (-3-3); HCO3 33 mEq/L (20-26); Inspired Oxygen, FIO2 100 %; O2 Saturation 95 % (91-98); PCO2 47 mmHg (32.0-48.0); PO2 72 mmHg (83-108); pH, Arterial 7.46 (7.35-7.45)
[2024-12-27 21:30] LABS: Allen Test Not Performed; Puncture Site Left Brachial
[2024-12-28] VITALS (15 sets, daily range): BP systolic 117–140; BP diastolic 70–80; PULSE 70–82; RESP 12–23; TEMP 36.1–36.8; O2SAT 89–98
[2024-12-28 06:26] LABS: Basophils # (Auto) 0.1 Thou/mm3 (0.0-0.2); Basophils % (Auto) 1 % (0-2.5); Eosinophils # (Auto) 0.1 Thou/mm3 (0.0-0.5); Eosinophils % (Auto) 1 % (0-10); Hemoglobin 10.8 g/dL (12.0-16.0); Immature Granulocytes % (Auto) 2 % (0-0); Immature Granulocytes Auto 0.15 Thou/mm3 (0.00-0.00); Lymphocytes # (Auto) 1.4 Thou/mm3 (1.0-4.8); Lymphocytes % (Auto) 22 % (10-50); Mean Corpuscular HGB Conc 33.8 g/dl (31.0-37.0); Mean Corpuscular Hemoglobin 31.3 pg (25.0-35.0); Mean Corpuscular Volume 93 fL (80-100); Monocytes # (Auto) 0.8 Thou/mm3 (0.0-0.8); Monocytes % (Auto) 12 % (0-12); Neutrophils % (Auto) 62 % (37-80); Nucleated Red Blood Cell % 0 /100 WBC (0); Platelet Count 291 Thou/mm3 (140-440); RDW Standard Deviation 42.5 fL (36.4-46.3); Red Blood Count 3.45 Miln/mm3 (4.00-5.20); White Blood Count 6.4 Thou/mm3 (3.6-11.0)
[2024-12-28 06:41] LABS: Alanine Aminotransferase 58 U/L (10-49); Albumin, Serum 3.5 gm/dL (3.4-4.8); Albumin/Globulin Ratio 1.1 (1.2-2.2); Alkaline Phosphatase 107 U/L (46-116); Anion Gap 8 (7-16); Aspartate Amino Transferase 43 U/L (0-34); BUN/Creatinine Ratio 32 Ratio (12-20); Bilirubin,Total 0.2 mg/dL (0.3-1.2); Blood Urea Nitrogen 19 mg/dL (9-23); Calcium 9.9 mg/dL (8.3-10.6); Calcium (Corrected) 10.3 mg/dL (8.5-10.1); Carbon Dioxide 30.3 mMol/L (20.0-31.0); Chloride 107 mMol/L (98-107); Creatinine (Component) 0.6 mg/dL (0.6-1.3); Estimated Creatinine Clearance 81.8 mL/min (>60); Globulin 3.2 gm/dL (2.3-3.5); Glucose 126 mg/dL (74-106); Magnesium 2.2 mg/dL (1.6-2.6); Osmolality,Calculated 292 (275-295); Potassium 4.1 mMol/L (3.4-5.1); Sodium 145 mMol/L (136-145); Total Protein 6.7 gm/dL (5.7-8.2); eGFR > 60 See Note
[2024-12-28] MEDS: ACETYLCYSTEINE RT SOL 10% 4 ML NEBU 3 ML INH ×3 (07:04→23:23)
[2024-12-28] MEDS: IPRATROPIUM RT 0.5 MG/ 2.5 ML NEBU INH ×3 (07:05→23:22)
[2024-12-28] MEDS: DOXYCYCLINE INJ 100 MG in SODIUM CHLORIDE 0.9% (POP) 100 ML IV ×2 (09:02→20:51)
[2024-12-28] MEDS: cefTRIAXone 1,000 MG in SODIUM CHLORIDE 0.9% (Popper) 50 ML 100 MG IV (09:02)
[2024-12-28] MEDS: POLYETHYLENE GLYCOL 17 GM PACKET PO (09:11)
[2024-12-28] MEDS: PANTOPRAZOLE 40 MG TABLET PO (09:12)
[2024-12-28] MEDS: DOCUSATE SOD 100 MG CAPSULE PO (09:12)
[2024-12-28] MEDS: ZIPRASIDONE 20 MG CAPSULE 40 MG PO ×2 (09:12→20:54)
[2024-12-28] MEDS: SENNOSIDES SYRUP 8.8 MG/5 ML UDC PO (09:14)
[2024-12-28] MEDS: DIVALPROEX SOD 125 MG SPRINKLE 625 MG PO ×2 (09:34→20:53)
[2024-12-28] MEDS: PROPRANOLOL 10 MG TABLET 20 MG PO ×2 (09:34→20:54)
[2024-12-28] MEDS: ATORVASTATIN CALCIUM 20 MG TABLET PO (09:34)
--- NOTE | 2024-12-28 11:19 | PC.SS ---
Rounding: pt is on Hi-Vimal O2
--- NOTE | 2024-12-28 12:59 | ESPR_ITS ---
<Statement entered by Breanna Varela MD - 12/28/24 18:16> Patient seen and examined at bedside. No acute overnight events reported. Patient seen on hi flow nasal cannula, 35 L and 90% FiO2. Repeat ABG is within normal limits. However, patient has been difficult to wean down on hyponasal cannula. Spoke with Dr. Malin, in regards to CODE STATUS, and at this time will continue with full code, as patient is very highly functional at day center. Will continue with IV antibiotics, breathing treatments with Mucomyst and CPT. I discussed with and supervised the sourcing internship physician who took care of this patient. I personally saw and examined the patient and discussed the assessment and plan with the entire medicine team, including my attending Dr. Nazario, I agree with most of the assessment and plan as documented below Breanna Varela M.D. PGY-2 Disclaimer: Despite multiple revisions, due to the dictation software being used, the document bellow may not be free of grammatical errors including phonetic/typographic errors. However, this does not deter from our commitment to providing health care in the patient's best interest in mind. Documentation for date of: 12/28/24 Subjective Subjective Interval history: Patient seen today at the bedside. No overnight events reported. Continues to be on high flow nasal cannula has been difficult to wean off. Vital signs stable at this time. Labs at this time unremarkable. Continues with IV antibiotics and breathing treatments for pneumonia. Continues maxed out on high flow nasal cannula. Will speak to Dr. Malin in regards to CODE STATUS with the patient. Exam Vital Signs Temp Pulse Resp BP Pulse Ox O2 Del Method O2 Flow Rate 97.8 F 72 18 136/75 H 98 High Flow Nasal Cannula 35 12/28/24 08:00 12/28/24 11:21 12/28/24 11:21 12/28/24 09:34 12/28/24 11:21 12/28/24 08:00 12/28/24 11:21 FiO2 90 12/28/24 11:21 Narrative Exam Physical Exam GENERAL: NAD, awake, alert, developmentally delayed HEENT: Dry mucosa. Blind in the right eye CARDIO: Heart RRR, no obvious murmurs PULM: + coughing/dyspnea decreased air entry bilaterally GI: Abdomen soft, nondistended, no pain on palpation. BSx4 SKIN/MSK/EXT: No wounds/rashes/edema/amputations, no pain on palpation. Pedal pulses present B/L Objective Labs 12/29/24 08:11 12/29/24 08:11 Labs: Laboratory Results - last 24 hr 12/27/24 12/28/24 21:20 05:23 WBC 6.4 RBC 3.45 L Hgb 10.8 L Hct 32.0 L MCV 93 MCH 31.3 MCHC 33.8 RDW Std Deviation 42.5 Plt Count 291 D Neut % (Auto) 62 Lymph % (Auto) 22 [place] % (Auto) 12 Eos % (Auto) 1 Baso % (Auto) 1 Neut # (Auto) 4.0 Lymph # (Auto) 1.4 [place] # (Auto) 0.8 Eos # (Auto) 0.1 Baso # (Auto) 0.1 Immature Gran # (Auto) 0.15 H Absolute Nucleated RBC 0.00 Immature Gran % 2 H Nucleated RBC % 0 Puncture Site Left Brachial ABG pH 7.46 H ABG pCO2 47 ABG pO2 72 L ABG HCO3 33 H ABG O2 Saturation 95 ABG Base Excess 8 H FiO2 100 Sodium 145 Potassium 4.1 Chloride 107 Carbon Dioxide 30.3 Anion Gap 8 BUN 19 Creatinine 0.6 Estim Creat Clear Calc 81.8 eGFR > 60 BUN/Creatinine Ratio 32 H Glucose 126 H Calculated Osmolality 292 Calcium 9.9 Corrected Calcium 10.3 H Magnesium 2.2 Total Bilirubin 0.2 L AST 43 H ALT 58 H Alkaline Phosphatase 107 Total Protein 6.7 Albumin 3.5 Globulin 3.2 Albumin/Globulin Ratio 1.1 L ABG Interpretation ABG results: 12/27/24 21:20 ABG pH 7.46 H ABG pCO2 47 ABG pO2 72 L ABG HCO3 33 H ABG O2 Saturation 95 ABG Base Excess 8 H Quality Measures Quality Measures none Assessment & Plan Assessment Current Active Medications: Generic Name Dose Route Start Last Admin Trade Name Freq PRN Reason Stop Dose Admin Acetaminophen 650 mg 12/23/24 16:23 12/23/24 16:51 Acetaminophen 325 Mg Tablet PO 01/22/25 16:22 650 mg Q6H PRN Administration Fever >100.5 Acetaminophen 650 mg 12/23/24 16:23 Acetaminophen 325 Mg Tablet PO 01/22/25 16:22 Q6H PRN PAIN SCALE 1-3 (mild Acetylcysteine 3 ml 12/27/24 16:45 12/28/24 07:04 Acetylcysteine Rt Marisabel 10% 4 Ml Nebu INH 01/26/25 16:44 3 ml Q8HRRT ABBY Administration Atorvastatin Calcium 20 mg 12/24/24 09:00 12/28/24 09:34 Atorvastatin Calcium 20 Mg Tablet PO 01/23/25 08:59 20 mg QDAY ABBY Administration Dextrose 25 ml 12/23/24 16:32 Dextrose 50%-Water Inj 50 Ml Syringe IV 01/22/25 16:31 Q15MIN PRN BG 50-70 responsive npo pt Dextrose 50 ml 12/23/24 16:32 Dextrose 50%-Water Inj 50 Ml Syringe IV 01/22/25 16:31 Q15MIN PRN BG <50 OR BG <70 & pt unresponsive Divalproex Sodium 625 mg 12/24/24 14:45 12/28/24 09:34 Divalproex Sod 125 Mg Sprinkle PO 01/23/25 14:44 625 mg BID ABBY Administration Docusate Sodium 100 mg 12/23/24 16:30 12/28/24 09:12 Docusate Sod 100 Mg Capsule PO 01/22/25 16:29 100 mg QDAY ABBY Administration Protocol Glucagon 1 mg 12/23/24 16:32 Glucagon Inj 1 Mg Vial IM Q15MIN PRN BG <70, and no IV access Ceftriaxone Sodium 1,000 mg/ 50 mls @ 100 mls/hr 12/24/24 09:00 12/28/24 09:02 Sodium Chloride IV 12/31/24 08:59 100 mls/hr QDAY ABBY Administration Doxycycline Hyclate 100 mg/ 100 mls @ 100 mls/hr 12/23/24 21:00 12/28/24 09:02 Sodium Chloride IV 12/30/24 20:59 100 mls/hr BID ABBY Administration Insulin Human Lispro 0 unit 12/23/24 17:00 12/28/24 09:16 Insulin Lispro (Admelog) 1 Unit/0.01 Ml Unit SC 01/22/25 16:59 Not Given AC ABBY Protocol Ipratropium [place] 0.5 mg 12/27/24 17:15 12/28/24 07:05 Ipratropium Rt 0.5 Mg/ 2.5 Ml Nebu INH 01/26/25 17:14 0.5 mg Q8HRRT ABBY Administration Mirtazapine 15 mg 12/24/24 21:00 12/27/24 21:13 Mirtazapine 15 Mg Tablet PO 01/23/25 20:59 15 mg HS ABBY Administration Ondansetron HCl 4 mg 12/23/24 16:23 Ondansetron Inj 2 Mg/Ml Inj 2 Ml IV 01/22/25 16:22 Q6H PRN NAUSEA OR VOMITING Protocol Pantoprazole Sodium 40 mg 12/24/24 09:00 12/28/24 09:12 Pantoprazole 40 Mg Tablet PO 01/23/25 08:59 40 mg QDAY ABBY Administration Polyethylene Glycol 17 gm 12/24/24 09:00 12/28/24 09:11 Polyethylene Glycol 17 Gm Packet PO 01/23/25 08:59 17 gm QDAY ABBY Administration Propranolol HCl 20 mg 12/24/24 14:45 12/28/24 09:34 Propranolol 10 Mg Tablet PO 01/23/25 14:44 20 mg BID ABBY Administration Sennosides 8.8 mg 12/23/24 16:45 12/28/24 09:14 Sennosides Syrup 8.8 Mg/5 Ml Udc PO 01/22/25 16:44 8.8 mg QDAY ABBY Administration Protocol Ziprasidone 40 mg 12/24/24 14:45 12/28/24 09:12 Ziprasidone 20 Mg Capsule PO 01/23/25 14:44 40 mg BID ABBY Administration Plan 64-year-old female with past medical history of type 2 diabetes (not on any medications), developmentally delayed, nonverbal at baseline, hyperlipidemia, schizoaffective disorder who was brought into the ED by caregiver due to generalized weakness. Per the caregiver patient has been progressively getting more lethargic for the past 3 days. Patient at baseline is wheelchair-bound but would stand with assistance however in the past days patient has lost interest in her usual daily activities. Patient has had poor appetite and would just spit out the food. Patient also has cough productive of white-yellowish phlegm. Admitted for acute hypoxic respiratory failure secondary to community-acquired pneumonia. #Acute hypoxic respiratory failure likely secondary to community-acquired pneumonia Per caregiver patient has become more lethargic and less active than her baseline Chest x-ray shows bilateral pneumonia Lactic acid normal, Procalcitonin negative Cocci negative, RSV negative, COVID and flu negative Blood cultures negative in 48 hours Manda index 5.86: Low risk of progressing to intubation ? Continue ceftriaxone ? Continue doxycycline ? Ipratropium 0.5 mg every 6 hours ? Continue high flow nasal cannula and wean off oxygen as tolerated ? Continue O2 to keep SpO2 above 92% #Right pleural effusion Most likely parapneumonic effusion Less likely malignancy Follow-up x-ray showed right pleural effusion Patient is conserved Dr. Malin gave consent by the phone for right ultrasound- guided thoracentesis Bedside ultrasound was done not enough fluid was found to be tapped at this time. #Transaminitis Likely secondary to infection Downtrending #Hyperlipidemia ? Continue atorvastatin 20 mg daily #Diabetes mellitus type 2 insulin-dependent Caregiver states patient does not take any medications for diabetes However blood sugars are above the 200s A1c 6.3 ? SSI ? Hypoglycemia protocol in place #Developmentally delayed #Schizoaffective disorder Apparently patient takes Depakote and other medications however medications not showing on EMR ? Continue Depakote ? Continue ziprasidone #History of constipation Per caregiver patient has history of constipation has not had a bowel movement in more than 3 days she takes docusate and MiraLAX at home ? Senna ? Docusate ? MiraLAX Case discussed with my senior Dr. Varela PGY-[address] Aravind Calabrese MD PGY-1 Disposition: Med telemetry Fluids: None Feeding: Carb consistent Thrombo prophylaxis: Heparin Gastric Ulcer prophylaxis: Pantoprazole CODE STATUS: Full code/patient is conserved Disclaimer: Despite multiple revisions, due to the dictation software being used, the document bellow may not be free of grammatical errors including phonetic/typographic errors. However, this does not deter from our commitment to providing health care in the patient's best interest in mind. Attending Provider Attestation/Addendum I, Hiwot Nazario DO, attest that I was physically present for the grissom portions of the service and evaluated the patient with the resident and I reviewed and discussed the case with the resident and agree with the resident's findings and plans of care as documented above Patient seen and evaluated this AM. Patient remains calm and on HFNC. SHe continues to require flow of 35L/min and FiO2 of 100%. Patient remains at baseline mental status. Conservator at [facility] updated regarding patient condition and would like to maintain Full Code and current management as patient had good baseline functional status prior to presentation.
[2024-12-28] MEDS: MIRTAZAPINE 15 MG TABLET PO (20:52)
[2024-12-29] VITALS (13 sets, daily range): BP systolic 103–133; BP diastolic 65–76; PULSE 67–77; RESP 13–26; TEMP 36.1–36.7; O2SAT 87–96
[2024-12-29] MEDS: IPRATROPIUM RT 0.5 MG/ 2.5 ML NEBU INH ×3 (06:24→23:46)
[2024-12-29] MEDS: ACETYLCYSTEINE RT SOL 10% 4 ML NEBU 3 ML INH ×3 (06:24→23:46)
[2024-12-29 08:20] LABS: Basophils # (Auto) 0.1 Thou/mm3 (0.0-0.2); Basophils % (Auto) 1 % (0-2.5); Eosinophils # (Auto) 0.1 Thou/mm3 (0.0-0.5); Eosinophils % (Auto) 2 % (0-10); Hematocrit 31.4 % (36.0-46.0); Hemoglobin 10.3 g/dL (12.0-16.0); Immature Granulocytes % (Auto) 6 % (0-0); Immature Granulocytes Auto 0.39 Thou/mm3 (0.00-0.00); Lymphocytes # (Auto) 1.8 Thou/mm3 (1.0-4.8); Lymphocytes % (Auto) 26 % (10-50); Mean Corpuscular HGB Conc 32.8 g/dl (31.0-37.0); Mean Corpuscular Hemoglobin 31.2 pg (25.0-35.0); Mean Corpuscular Volume 95 fL (80-100); Monocytes # (Auto) 0.9 Thou/mm3 (0.0-0.8); Monocytes % (Auto) 13 % (0-12); Neutrophils # (Auto) 3.6 Thou/mm3 (1.8-7.7); Neutrophils % (Auto) 53 % (37-80); Nucleated Red Blood Cell % 0 /100 WBC (0); Platelet Count 315 Thou/mm3 (140-440); RDW Standard Deviation 43.1 fL (36.4-46.3); White Blood Count 6.9 Thou/mm3 (3.6-11.0)
[2024-12-29 08:44] LABS: Alanine Aminotransferase 50 U/L (10-49); Albumin, Serum 3.4 gm/dL (3.4-4.8); Albumin/Globulin Ratio 1.1 (1.2-2.2); Alkaline Phosphatase 102 U/L (46-116); Anion Gap 4 (7-16); Aspartate Amino Transferase 39 U/L (0-34); BUN/Creatinine Ratio 32 Ratio (12-20); Bilirubin,Total 0.2 mg/dL (0.3-1.2); Blood Urea Nitrogen 16 mg/dL (9-23); Calcium 9.1 mg/dL (8.3-10.6); Calcium (Corrected) 9.6 mg/dL (8.5-10.1); Carbon Dioxide 31.1 mMol/L (20.0-31.0); Chloride 107 mMol/L (98-107); Creatinine (Component) 0.5 mg/dL (0.6-1.3); Estimated Creatinine Clearance 98.2 mL/min (>60); Glucose 114 mg/dL (74-106); Osmolality,Calculated 285 (275-295); Potassium 4.3 mMol/L (3.4-5.1); Sodium 142 mMol/L (136-145); Total Protein 6.4 gm/dL (5.7-8.2); eGFR > 60 See Note
[2024-12-29] MEDS: DOXYCYCLINE INJ 100 MG in SODIUM CHLORIDE 0.9% (POP) 100 ML IV ×2 (08:56→20:18)
[2024-12-29] MEDS: cefTRIAXone 1,000 MG in SODIUM CHLORIDE 0.9% (Popper) 50 ML 100 MG IV (08:57)
[2024-12-29] MEDS: ZIPRASIDONE 20 MG CAPSULE 40 MG PO ×2 (09:00→20:16)
[2024-12-29] MEDS: PROPRANOLOL 10 MG TABLET 20 MG PO ×2 (09:00→20:16)
[2024-12-29] MEDS: DIVALPROEX SOD 125 MG SPRINKLE 625 MG PO ×2 (09:00→20:16)
[2024-12-29] MEDS: POLYETHYLENE GLYCOL 17 GM PACKET PO (09:00)
[2024-12-29] MEDS: PANTOPRAZOLE 40 MG TABLET PO (09:01)
[2024-12-29] MEDS: DOCUSATE SOD 100 MG CAPSULE PO (09:01)
[2024-12-29] MEDS: ATORVASTATIN CALCIUM 20 MG TABLET PO (09:01)
[2024-12-29] MEDS: SALINE NASAL 45 ML BTL 1 SPRAY NASAL ×2 (11:25→21:00)
--- NOTE | 2024-12-29 11:46 | ESPR_ITS ---
<Statement entered by Breanna Varela MD - 12/29/24 15:07> Patient seen and examined at bedside. No acute overnight events reported. Patient is currently on high flow nasal cannula 30 L, FiO2 of 60% saturating well above 90% on pulse oximetry. Due to patient's significant congestion and dried blood around her nares due to high flow nasal cannula, will order nasopharyngeal suction and Annabella spray to help clear any mucus. Continue with IV antibiotics and breathing treatments with Mucomyst, and wean O2 as tolerated. I discussed with and supervised the international accountant physician who took care of this patient. I personally saw and examined the patient and discussed the assessment and plan with the entire medicine team, including my attending Dr. Nazario, I agree with most of the assessment and plan as documented below Breanna Varela M.D. PGY-2 Disclaimer: Despite multiple revisions, due to the dictation software being used, the document bellow may not be free of grammatical errors including phonetic/typographic errors. However, this does not deter from our commitment to providing health care in the patient's best interest in mind. Documentation for date of: 12/29/24 Subjective Subjective Interval history: Patient seen today at the bedside found awake, alert. No overnight events reported. Vital signs stable at this time. Patient to have blood around nares, nasopharyngeal suction ordered. HFNC this am was around 30L, pulse ox showed saturation in the 90s, will continue to wean as tolerated. Exam Vital Signs Temp Pulse Resp BP Pulse Ox O2 Del Method O2 Flow Rate 97.0 F 71 19 103/73 87 L High Flow Nasal Cannula 30 12/29/24 08:00 12/29/24 10:07 12/29/24 10:07 12/29/24 09:00 12/29/24 10:07 12/29/24 08:00 12/29/24 10:07 FiO2 70 12/29/24 10:07 Narrative Exam Physical Exam GENERAL: NAD, awake, alert, developmentally delayed HEENT: Dry mucosa. Blind in the right eye CARDIO: Heart RRR, no obvious murmurs PULM: - coughing/dyspnea good air entry bilaterally GI: Abdomen soft, nondistended, no pain on palpation. BSx4 SKIN/MSK/EXT: No wounds/rashes/edema/amputations, no pain on palpation. Pedal pulses present B/L Objective Labs 12/29/24 08:11 12/29/24 08:11 Labs: Laboratory Results - last 24 hr 12/29/24 08:11 WBC 6.9 RBC 3.30 L Hgb 10.3 L Hct 31.4 L MCV 95 MCH 31.2 MCHC 32.8 RDW Std Deviation 43.1 Plt Count 315 Neut % (Auto) 53 Lymph % (Auto) 26 [place] % (Auto) 13 H Eos % (Auto) 2 Baso % (Auto) 1 Neut # (Auto) 3.6 Lymph # (Auto) 1.8 [place] # (Auto) 0.9 H Eos # (Auto) 0.1 Baso # (Auto) 0.1 Immature Gran # (Auto) 0.39 H Absolute Nucleated RBC 0.00 Immature Gran % 6 H Nucleated RBC % 0 Sodium 142 Potassium 4.3 Chloride 107 Carbon Dioxide 31.1 H Anion Gap 4 L BUN 16 Creatinine 0.5 L Estim Creat Clear Calc 98.2 eGFR > 60 BUN/Creatinine Ratio 32 H Glucose 114 H Calculated Osmolality 285 Calcium 9.1 Corrected Calcium 9.6 Total Bilirubin 0.2 L AST 39 H ALT 50 H Alkaline Phosphatase 102 Total Protein 6.4 Albumin 3.4 Globulin 3.0 Albumin/Globulin Ratio 1.1 L ABG Interpretation ABG results: 12/27/24 21:20 ABG pH 7.46 H ABG pCO2 47 ABG pO2 72 L ABG HCO3 33 H ABG O2 Saturation 95 ABG Base Excess 8 H Quality Measures Quality Measures none Assessment & Plan Assessment Current Active Medications: Generic Name Dose Route Start Last Admin Trade Name Yinka PRN Reason Stop Dose Admin Acetaminophen 650 mg 12/23/24 16:23 12/23/24 16:51 Acetaminophen 325 Mg Tablet PO 01/22/25 16:22 650 mg Q6H PRN Administration Fever >100.5 Acetaminophen 650 mg 12/23/24 16:23 Acetaminophen 325 Mg Tablet PO 01/22/25 16:22 Q6H PRN PAIN SCALE 1-3 (mild Acetylcysteine 3 ml 12/27/24 16:45 12/29/24 06:24 Acetylcysteine Rt Marisabel 10% 4 Ml Nebu INH 01/26/25 16:44 3 ml Q8HRRT ABBY Administration Atorvastatin Calcium 20 mg 12/24/24 09:00 12/29/24 09:01 Atorvastatin Calcium 20 Mg Tablet PO 01/23/25 08:59 20 mg QDAY ABBY Administration Dextrose 25 ml 12/23/24 16:32 Dextrose 50%-Water Inj 50 Ml Syringe IV 01/22/25 16:31 Q15MIN PRN BG 50-70 responsive npo pt Dextrose 50 ml 12/23/24 16:32 Dextrose 50%-Water Inj 50 Ml Syringe IV 01/22/25 16:31 Q15MIN PRN BG <50 OR BG <70 & pt unresponsive Divalproex Sodium 625 mg 12/24/24 14:45 12/29/24 09:00 Divalproex Sod 125 Mg Sprinkle PO 01/23/25 14:44 625 mg BID ABBY Administration Docusate Sodium 100 mg 12/23/24 16:30 12/29/24 09:01 Docusate Sod 100 Mg Capsule PO 01/22/25 16:29 100 mg QDAY ABBY Administration Protocol Glucagon 1 mg 12/23/24 16:32 Glucagon Inj 1 Mg Vial IM Q15MIN PRN BG <70, and no IV access Ceftriaxone Sodium 1,000 mg/ 50 mls @ 100 mls/hr 12/24/24 09:00 12/29/24 08:57 Sodium Chloride IV 12/31/24 08:59 100 mls/hr QDAY ABBY Administration Doxycycline Hyclate 100 mg/ 100 mls @ 100 mls/hr 12/23/24 21:00 12/29/24 08:56 Sodium Chloride IV 12/30/24 20:59 100 mls/hr BID ABBY Administration Insulin Human Lispro 0 unit 12/23/24 17:00 12/29/24 07:46 Insulin Lispro (Admelog) 1 Unit/0.01 Ml Unit SC 01/22/25 16:59 Not Given AC ABBY Protocol Ipratropium [place] 0.5 mg 12/27/24 17:15 12/29/24 06:24 Ipratropium Rt 0.5 Mg/ 2.5 Ml Nebu INH 01/26/25 17:14 0.5 mg Q8HRRT ABBY Administration Mirtazapine 15 mg 12/24/24 21:00 12/28/24 20:52 Mirtazapine 15 Mg Tablet PO 01/23/25 20:59 15 mg HS ABBY Administration Ondansetron HCl 4 mg 12/23/24 16:23 Ondansetron Inj 2 Mg/Ml Inj 2 Ml IV 01/22/25 16:22 Q6H PRN NAUSEA OR VOMITING Protocol Pantoprazole Sodium 40 mg 12/24/24 09:00 12/29/24 09:01 Pantoprazole 40 Mg Tablet PO 01/23/25 08:59 40 mg QDAY ABBY Administration Polyethylene Glycol 17 gm 12/24/24 09:00 12/29/24 09:00 Polyethylene Glycol 17 Gm Packet PO 01/23/25 08:59 17 gm QDAY ABBY Administration Propranolol HCl 20 mg 12/24/24 14:45 12/29/24 09:00 Propranolol 10 Mg Tablet PO 01/23/25 14:44 20 mg BID ABBY Administration Sennosides 8.8 mg 12/23/24 16:45 12/28/24 09:14 Sennosides Syrup 8.8 Mg/5 Ml Udc PO 01/22/25 16:44 8.8 mg QDAY ABBY Administration Protocol Sodium Chloride 1 spray 12/29/24 10:30 12/29/24 11:25 Saline Nasal 45 Ml Btl NASAL 01/28/25 10:29 1 dose BID ABBY Administration Ziprasidone 40 mg 12/24/24 14:45 12/29/24 09:00 Ziprasidone 20 Mg Capsule PO 01/23/25 14:44 40 mg BID ABBY Administration Plan 64-year-old female with past medical history of type 2 diabetes (not on any medications), developmentally delayed, nonverbal at baseline, hyperlipidemia, schizoaffective disorder who was brought into the ED by caregiver due to generalized weakness. Per the caregiver patient has been progressively getting more lethargic for the past 3 days. Patient at baseline is wheelchair-bound but would stand with assistance however in the past days patient has lost interest in her usual daily activities. Patient has had poor appetite and would just spit out the food. Patient also has cough productive of white-yellowish phlegm. Admitted for acute hypoxic respiratory failure secondary to community-acquired pneumonia. #Acute hypoxic respiratory failure likely secondary to community-acquired pneumonia Per caregiver patient has become more lethargic and less active than her baseline Chest x-ray shows bilateral pneumonia Lactic acid normal, Procalcitonin negative Cocci negative, RSV negative, COVID and flu negative Blood cultures negative in 48 hours Manda index 5.86: Low risk of progressing to intubation ? Continue ceftriaxone ? Continue doxycycline ? Ipratropium 0.5 mg every 6 hours ? Continue high flow nasal cannula and wean off oxygen as tolerated ? Continue O2 to keep SpO2 above 92% #Right pleural effusion-stable Most likely parapneumonic effusion Less likely malignancy Follow-up x-ray showed right pleural effusion Patient is conserved Dr. Malin gave consent by the phone for right ultrasound- guided thoracentesis Bedside ultrasound was done not enough fluid was found to be tapped at this time. #Transaminitis-improving Likely secondary to infection Downtrending #Hyperlipidemia ? Continue atorvastatin 20 mg daily #Diabetes mellitus type 2 insulin-dependent Caregiver states patient does not take any medications for diabetes However blood sugars are above the 200s A1c 6.3 ? SSI ? Hypoglycemia protocol in place #Developmentally delayed #Schizoaffective disorder Apparently patient takes Depakote and other medications however medications not showing on EMR ? Continue Depakote ? Continue ziprasidone #History of constipation Per caregiver patient has history of constipation has not had a bowel movement in more than 3 days she takes docusate and MiraLAX at home ? Senna ? Docusate ? MiraLAX Case discussed with my senior Dr. Varela PGY-[address] Aravind Calabrese MD PGY-1 Disposition: Med telemetry Fluids: None Feeding: Carb consistent Thrombo prophylaxis: Heparin Gastric Ulcer prophylaxis: Pantoprazole CODE STATUS: Full code/patient is conserved Disclaimer: Despite multiple revisions, due to the dictation software being used, the document bellow may not be free of grammatical errors including phonetic/typographic errors. However, this does not deter from our commitment to providing health care in the patient's best interest in mind. Attending Provider Attestation/Addendum I, Hiwot Nazario DO, attest that I was physically present for the grissom portions of the service and evaluated the patient with the resident and I reviewed and discussed the case with the resident and agree with the resident's findings and plans of care as documented above Patient seen and evaluated this a.m. Patient appears to be calm and at baseline. She remains on very liters per minute and FiO2 of 70%. However, continuous pulse ox appears to be an accurate reading in the 80s. However, portable pulse ox and telemetry box reads that patient is 95% on the settings. Will decrease FiO2 to 60% and continue to monitor closely. Patient has been saturating in the low 90s per nursing ever since the change. Will continue with current management otherwise. Patient will be a slow wean off the high flow due to poor lung volumes and inability to encourage patient in using the incentive spirometer.
--- NOTE | 2024-12-29 15:41 | PC.SS ---
Follow up note: Patient remains on high flow. Attempting to wean down. [facility] makes all healthcare decisions.
[2024-12-29] MEDS: MIRTAZAPINE 15 MG TABLET PO (20:17)
[2024-12-30] VITALS (17 sets, daily range): BP systolic 102–135; BP diastolic 57–75; PULSE 62–74; RESP 12–23; TEMP 36.1–36.6; O2SAT 87–99
[2024-12-30 05:59] LABS: Basophils % (Auto) 0 % (0-2.5); Eosinophils # (Auto) 0.1 Thou/mm3 (0.0-0.5); Eosinophils % (Auto) 2 % (0-10); Hematocrit 31.6 % (36.0-46.0); Hemoglobin 10.2 g/dL (12.0-16.0); Immature Granulocytes % (Auto) 7 % (0-0); Immature Granulocytes Auto 0.49 Thou/mm3 (0.00-0.00); Lymphocytes # (Auto) 1.8 Thou/mm3 (1.0-4.8); Lymphocytes % (Auto) 25 % (10-50); Mean Corpuscular HGB Conc 32.3 g/dl (31.0-37.0); Mean Corpuscular Volume 96 fL (80-100); Monocytes # (Auto) 0.8 Thou/mm3 (0.0-0.8); Monocytes % (Auto) 11 % (0-12); Neutrophils % (Auto) 55 % (37-80); Nucleated Red Blood Cell % 0 /100 WBC (0); Platelet Count 353 Thou/mm3 (140-440); RDW Standard Deviation 43.6 fL (36.4-46.3); Red Blood Count 3.29 Miln/mm3 (4.00-5.20); White Blood Count 7.3 Thou/mm3 (3.6-11.0)
[2024-12-30 06:27] LABS: Alanine Aminotransferase 43 U/L (10-49); Albumin, Serum 3.6 gm/dL (3.4-4.8); Albumin/Globulin Ratio 1.2 (1.2-2.2); Alkaline Phosphatase 97 U/L (46-116); Anion Gap 9 (7-16); Aspartate Amino Transferase 38 U/L (0-34); BUN/Creatinine Ratio 27 Ratio (12-20); Bilirubin,Total 0.2 mg/dL (0.3-1.2); Blood Urea Nitrogen 16 mg/dL (9-23); Calcium 9.2 mg/dL (8.3-10.6); Calcium (Corrected) 9.5 mg/dL (8.5-10.1); Carbon Dioxide 27.3 mMol/L (20.0-31.0); Chloride 104 mMol/L (98-107); Creatinine (Component) 0.6 mg/dL (0.6-1.3); Estimated Creatinine Clearance 81.8 mL/min (>60); Globulin 2.9 gm/dL (2.3-3.5); Glucose 114 mg/dL (74-106); Magnesium 2.1 mg/dL (1.6-2.6); Osmolality,Calculated 281 (275-295); Potassium 4.4 mMol/L (3.4-5.1); Sodium 140 mMol/L (136-145); Total Protein 6.5 gm/dL (5.7-8.2); eGFR > 60 See Note
[2024-12-30] MEDS: IPRATROPIUM RT 0.5 MG/ 2.5 ML NEBU INH ×3 (06:33→18:14)
[2024-12-30] MEDS: ACETYLCYSTEINE RT SOL 10% 4 ML NEBU 3 ML INH ×3 (06:33→18:14)
[2024-12-30] MEDS: cefTRIAXone 1,000 MG in SODIUM CHLORIDE 0.9% (Popper) 50 ML 100 MG IV (09:06)
[2024-12-30] MEDS: POLYETHYLENE GLYCOL 17 GM PACKET PO (09:06)
[2024-12-30] MEDS: DOCUSATE SOD 100 MG CAPSULE PO (09:07)
[2024-12-30] MEDS: ZIPRASIDONE 20 MG CAPSULE 40 MG PO ×2 (09:07→20:29)
[2024-12-30] MEDS: ATORVASTATIN CALCIUM 20 MG TABLET PO (09:07)
[2024-12-30] MEDS: DIVALPROEX SOD 125 MG SPRINKLE 625 MG PO ×2 (09:07→20:28)
[2024-12-30] MEDS: PANTOPRAZOLE 40 MG TABLET PO (09:07)
[2024-12-30] MEDS: PROPRANOLOL 10 MG TABLET 20 MG PO ×2 (09:08→20:29)
[2024-12-30] MEDS: SALINE NASAL 45 ML BTL 1 SPRAY NASAL ×2 (09:08→20:31)
[2024-12-30] MEDS: DOXYCYCLINE INJ 100 MG in SODIUM CHLORIDE 0.9% (POP) 100 ML IV ×2 (10:15→20:31)
--- NOTE | 2024-12-30 12:07 | ESPR_ITS ---
<Statement entered by Breanna Varela MD - 12/30/24 15:22> I discussed with and supervised the civil engineering intern physician who took care of this patient. I personally saw and examined the patient and discussed the assessment and plan with the entire medicine team, including my attending , I agree with most of the assessment and plan as documented below Breanna Varela M.D. PGY-2 Documentation for date of: 12/30/24 Subjective Subjective Interval history: Patient seen today at the bedside. No overnight events reported. Vital signs stable at this time, currently on HFNC 35L, FiO2 50%, will continue to wean as tolerated. Labs stable at this time. IV Antibiotic therapy with ceftriaxone and doxycycline will be completed today. Exam Vital Signs Temp Pulse Resp BP Pulse Ox O2 Del Method O2 Flow Rate 97.2 F 67 18 111/68 96 High Flow Nasal Cannula 34 12/30/24 11:14 12/30/24 11:42 12/30/24 11:14 12/30/24 11:14 12/30/24 11:14 12/30/24 11:14 12/30/24 10:28 FiO2 60 12/30/24 10:28 Narrative Exam Physical Exam GENERAL: NAD, awake, alert, developmentally delayed, nonverbal HEENT: Dry mucosa. Blind in the right eye CARDIO: Heart RRR, no obvious murmurs PULM: - coughing/dyspnea, good air entry bilaterally GI: Abdomen soft, nondistended, no pain on palpation. BSx4 SKIN/MSK/EXT: No wounds/rashes/edema/amputations, no pain on palpation. Pedal pulses present B/L Objective Labs 12/30/24 05:18 12/30/24 05:18 Labs: Laboratory Results - last 24 hr 12/30/24 05:18 WBC 7.3 RBC 3.29 L Hgb 10.2 L Hct 31.6 L MCV 96 MCH 31.0 MCHC 32.3 RDW Std Deviation 43.6 Plt Count 353 D Neut % (Auto) 55 Lymph % (Auto) 25 [place] % (Auto) 11 Eos % (Auto) 2 Baso % (Auto) 0 Neut # (Auto) 4.0 Lymph # (Auto) 1.8 [place] # (Auto) 0.8 Eos # (Auto) 0.1 Baso # (Auto) 0.0 Immature Gran # (Auto) 0.49 H Absolute Nucleated RBC 0.00 Immature Gran % 7 H Nucleated RBC % 0 Sodium 140 Potassium 4.4 Chloride 104 Carbon Dioxide 27.3 Anion Gap 9 BUN 16 Creatinine 0.6 Estim Creat Clear Calc 81.8 eGFR > 60 BUN/Creatinine Ratio 27 H Glucose 114 H Calculated Osmolality 281 Calcium 9.2 Corrected Calcium 9.5 Magnesium 2.1 Total Bilirubin 0.2 L AST 38 H ALT 43 Alkaline Phosphatase 97 Total Protein 6.5 Albumin 3.6 Globulin 2.9 Albumin/Globulin Ratio 1.2 ABG Interpretation ABG results: 12/27/24 21:20 ABG pH 7.46 H ABG pCO2 47 ABG pO2 72 L ABG HCO3 33 H ABG O2 Saturation 95 ABG Base Excess 8 H Quality Measures Quality Measures none Assessment & Plan Assessment Current Active Medications: Generic Name Dose Route Start Last Admin Trade Name Freq PRN Reason Stop Dose Admin Acetaminophen 650 mg 12/23/24 16:23 12/23/24 16:51 Acetaminophen 325 Mg Tablet PO 01/22/25 16:22 650 mg Q6H PRN Administration Fever >100.5 Acetaminophen 650 mg 12/23/24 16:23 Acetaminophen 325 Mg Tablet PO 01/22/25 16:22 Q6H PRN PAIN SCALE 1-3 (mild Acetylcysteine 3 ml 12/30/24 13:00 Acetylcysteine Rt Marisabel 10% 4 Ml Nebu INH 01/29/25 12:59 Q6HRRT ABBY Atorvastatin Calcium 20 mg 12/24/24 09:00 12/30/24 09:07 Atorvastatin Calcium 20 Mg Tablet PO 01/23/25 08:59 20 mg QDAY ABBY Administration Dextrose 25 ml 12/23/24 16:32 Dextrose 50%-Water Inj 50 Ml Syringe IV 01/22/25 16:31 Q15MIN PRN BG 50-70 responsive npo pt Dextrose 50 ml 12/23/24 16:32 Dextrose 50%-Water Inj 50 Ml Syringe IV 01/22/25 16:31 Q15MIN PRN BG <50 OR BG <70 & pt unresponsive Divalproex Sodium 625 mg 12/24/24 14:45 12/30/24 09:07 Divalproex Sod 125 Mg Sprinkle PO 01/23/25 14:44 625 mg BID ABBY Administration Docusate Sodium 100 mg 12/23/24 16:30 12/30/24 09:07 Docusate Sod 100 Mg Capsule PO 01/22/25 16:29 100 mg QDAY ABBY Administration Protocol Glucagon 1 mg 12/23/24 16:32 Glucagon Inj 1 Mg Vial IM Q15MIN PRN BG <70, and no IV access Ceftriaxone Sodium 1,000 mg/ 50 mls @ 100 mls/hr 12/24/24 09:00 12/30/24 09:06 Sodium Chloride IV 01/06/25 09:00 100 mls/hr QDAY ABBY Administration Doxycycline Hyclate 100 mg/ 100 mls @ 100 mls/hr 12/23/24 21:00 12/30/24 10:15 Sodium Chloride IV 01/05/25 20:59 100 mls/hr BID ABBY Administration Insulin Human Lispro 0 unit 12/23/24 17:00 12/30/24 11:05 Insulin Lispro (Admelog) 1 Unit/0.01 Ml Unit SC 01/22/25 16:59 Not Given AC ABBY Protocol Ipratropium [place] 0.5 mg 12/30/24 13:00 Ipratropium Rt 0.5 Mg/ 2.5 Ml Nebu INH 01/29/25 12:59 Q6HRRT ABBY Mirtazapine 15 mg 12/24/24 21:00 12/29/24 20:17 Mirtazapine 15 Mg Tablet PO 01/23/25 20:59 15 mg HS ABBY Administration Ondansetron HCl 4 mg 12/23/24 16:23 Ondansetron Inj 2 Mg/Ml Inj 2 Ml IV 01/22/25 16:22 Q6H PRN NAUSEA OR VOMITING Protocol Pantoprazole Sodium 40 mg 12/24/24 09:00 12/30/24 09:07 Pantoprazole 40 Mg Tablet PO 01/23/25 08:59 40 mg QDAY ABBY Administration Polyethylene Glycol 17 gm 12/24/24 09:00 12/30/24 09:06 Polyethylene Glycol 17 Gm Packet PO 01/23/25 08:59 17 gm QDAY ABBY Administration Propranolol HCl 20 mg 12/24/24 14:45 12/30/24 09:08 Propranolol 10 Mg Tablet PO 01/23/25 14:44 20 mg BID ABBY Administration Sennosides 8.8 mg 12/23/24 16:45 12/28/24 09:14 Sennosides Syrup 8.8 Mg/5 Ml Udc PO 01/22/25 16:44 8.8 mg QDAY ABBY Administration Protocol Sodium Chloride 1 spray 12/29/24 10:30 12/30/24 09:08 Saline Nasal 45 Ml Btl NASAL 01/28/25 10:29 1 dose BID ABBY Administration Ziprasidone 40 mg 12/24/24 14:45 12/30/24 09:07 Ziprasidone 20 Mg Capsule PO 01/23/25 14:44 40 mg BID ABBY Administration Plan 64-year-old female with past medical history of type 2 diabetes (not on any medications), developmentally delayed, nonverbal at baseline, hyperlipidemia, schizoaffective disorder who was brought into the ED by caregiver due to generalized weakness. Per the caregiver patient has been progressively getting more lethargic for the past 3 days. Patient at baseline is wheelchair-bound but would stand with assistance however in the past days patient has lost interest in her usual daily activities. Patient has had poor appetite and would just spit out the food. Patient also has cough productive of white-yellowish phlegm. Admitted for acute hypoxic respiratory failure secondary to community-acquired pneumonia. #Acute hypoxic respiratory failure likely secondary to community-acquired pneumonia Per caregiver patient has become more lethargic and less active than her baseline Chest x-ray shows bilateral pneumonia Lactic acid normal, Procalcitonin negative Cocci negative, RSV negative, COVID and flu negative Blood cultures negative in 48 hours Manda index 5.86: Low risk of progressing to intubation ? Continue ceftriaxone ? Continue doxycycline ? Ipratropium 0.5 mg every 4 hours ? Continue high flow nasal cannula and wean off oxygen as tolerated ? Continue O2 to keep SpO2 above 92% #Right pleural effusion-stable Most likely parapneumonic effusion Less likely malignancy Follow-up x-ray showed right pleural effusion Patient is conserved Dr. Malin gave consent by the phone for right ultrasound- guided thoracentesis Bedside ultrasound was done not enough fluid was found to be tapped at this time. #Transaminitis-improving Likely secondary to infection Downtrending #Hyperlipidemia ? Continue atorvastatin 20 mg daily #Diabetes mellitus type 2 insulin-dependent Caregiver states patient does not take any medications for diabetes However blood sugars are above the 200s A1c 6.3 ? SSI ? Hypoglycemia protocol in place #Developmentally delayed #Schizoaffective disorder Apparently patient takes Depakote and other medications however medications not showing on EMR ? Continue Depakote ? Continue ziprasidone #History of constipation Per caregiver patient has history of constipation has not had a bowel movement in more than 3 days she takes docusate and MiraLAX at home ? Senna ? Docusate ? MiraLAX Case discussed with my senior Dr. Varela PGY-[address] Roberto Calabrese MD PGY-1 Disposition: Med telemetry Fluids: None Feeding: Carb consistent Thrombo prophylaxis: Heparin Gastric Ulcer prophylaxis: Pantoprazole CODE STATUS: Full code/patient is conserved Disclaimer: Despite multiple revisions, due to the dictation software being used, the document bellow may not be free of grammatical errors including phonetic/typographic errors. However, this does not deter from our commitment to providing health care in the patient's best interest in mind. Attending Provider Attestation/Addendum I attest that I was physically present for the evaluation, physical examination, lab and imaging review of the patient with the residents. I discussed the case with the residents and agree with the findings and plans of care as documented above. At bedside today, patient appears comfortable. Saturating well on high flow nasal cannula. Overnight, she was on 70 FiO2, able to wean down to 50%, 35 L this afternoon. Continues to be on Rocephin and doxycycline. Culture results have been negative. Patient has been having problem with accurate reading on pulse oximetry, but portable oxygen saturation probe has been consistently elevating above 90%. We will continue to monitor her oxygen requirement and titrate down her supplemental oxygen as tolerated. Lin Mejia MD
[2024-12-30 13:56] LABS: Band Neutrophils (Manual) 4 % (0-6); Eosinophils (Manual) 3 % (0-4); Lymphocytes (Manual) 27 % (20-44); Metamyelocytes (Manual) 2 % (0-0); Monocytes (Manual) 9 % (2-9); Myelocytes (Manual) 3 % (0-0); Neutrophils (Manual) 52 % (50-70)
--- NOTE | 2024-12-30 14:40 | PC.SS ---
rounding note: Patient remains on high flow 02. Last day of i.v. antibiotics.
[2024-12-30] MEDS: MIRTAZAPINE 15 MG TABLET PO (20:29)
[2024-12-31] VITALS (13 sets, daily range): BP systolic 104–124; BP diastolic 56–71; PULSE 63–81; RESP 15–28; TEMP 36.1–36.2; O2SAT 90–96; BMI 21.4
[2024-12-31] MEDS: IPRATROPIUM RT 0.5 MG/ 2.5 ML NEBU INH ×4 (00:19→18:47)
[2024-12-31] MEDS: ACETYLCYSTEINE RT SOL 10% 4 ML NEBU 3 ML INH ×4 (00:20→18:47)
[2024-12-31 05:59] LABS: Basophils # (Auto) 0.1 Thou/mm3 (0.0-0.2); Basophils % (Auto) 1 % (0-2.5); Eosinophils # (Auto) 0.1 Thou/mm3 (0.0-0.5); Eosinophils % (Auto) 1 % (0-10); Hematocrit 32.6 % (36.0-46.0); Hemoglobin 10.7 g/dL (12.0-16.0); Immature Granulocytes % (Auto) 7 % (0-0); Immature Granulocytes Auto 0.55 Thou/mm3 (0.00-0.00); Lymphocytes % (Auto) 25 % (10-50); Mean Corpuscular HGB Conc 32.8 g/dl (31.0-37.0); Mean Corpuscular Hemoglobin 31.5 pg (25.0-35.0); Mean Corpuscular Volume 96 fL (80-100); Monocytes # (Auto) 0.9 Thou/mm3 (0.0-0.8); Monocytes % (Auto) 12 % (0-12); Neutrophils # (Auto) 4.5 Thou/mm3 (1.8-7.7); Neutrophils % (Auto) 55 % (37-80); Nucleated Red Blood Cell # 0.02 Thou/mm3 (0.00-0.00); Nucleated Red Blood Cell % 0 /100 WBC (0); Platelet Count 327 Thou/mm3 (140-440); RDW Standard Deviation 42.5 fL (36.4-46.3); White Blood Count 8.1 Thou/mm3 (3.6-11.0)
[2024-12-31 06:44] LABS: Alanine Aminotransferase 38 U/L (10-49); Albumin, Serum 3.4 gm/dL (3.4-4.8); Albumin/Globulin Ratio 1.1 (1.2-2.2); Alkaline Phosphatase 94 U/L (46-116); Anion Gap 8 (7-16); Aspartate Amino Transferase 34 U/L (0-34); BUN/Creatinine Ratio 27 Ratio (12-20); Bilirubin,Total 0.2 mg/dL (0.3-1.2); Blood Urea Nitrogen 16 mg/dL (9-23); Calcium 9.3 mg/dL (8.3-10.6); Calcium (Corrected) 9.8 mg/dL (8.5-10.1); Carbon Dioxide 30.3 mMol/L (20.0-31.0); Chloride 103 mMol/L (98-107); Creatinine (Component) 0.6 mg/dL (0.6-1.3); Estimated Creatinine Clearance 81.8 mL/min (>60); Globulin 3.1 gm/dL (2.3-3.5); Glucose 115 mg/dL (74-106); Magnesium 2.1 mg/dL (1.6-2.6); Osmolality,Calculated 283 (275-295); Potassium 4.6 mMol/L (3.4-5.1); Sodium 141 mMol/L (136-145); Total Protein 6.5 gm/dL (5.7-8.2); eGFR > 60 See Note
[2024-12-31] MEDS: POLYETHYLENE GLYCOL 17 GM PACKET PO (09:55)
[2024-12-31] MEDS: ZIPRASIDONE 20 MG CAPSULE 40 MG PO ×2 (09:56→20:15)
[2024-12-31] MEDS: DOCUSATE SOD 100 MG CAPSULE PO (09:56)
[2024-12-31] MEDS: ATORVASTATIN CALCIUM 20 MG TABLET PO (09:56)
[2024-12-31] MEDS: PANTOPRAZOLE 40 MG TABLET PO (09:56)
[2024-12-31] MEDS: SENNOSIDES SYRUP 8.8 MG/5 ML UDC PO (09:56)
[2024-12-31] MEDS: DIVALPROEX SOD 125 MG SPRINKLE 625 MG PO ×2 (09:56→20:16)
[2024-12-31] MEDS: SALINE NASAL 45 ML BTL 1 SPRAY NASAL ×2 (09:57→20:16)
--- NOTE | 2024-12-31 14:40 | ESPR_ITS ---
<Statement entered by Breanna Varela MD - 01/01/25 07:47> I discussed with and supervised the newsroom intern physician who took care of this patient. I personally saw and examined the patient and discussed the assessment and plan with the entire medicine team, including my attending Dr. Mejia , I agree with most of the assessment and plan as documented below Breanna Varela M.D. PGY-2 Documentation for date of: 12/31/24 Subjective Subjective Interval history: Patient seen today at the bedside. No overnight events reported. Vital signs stable at this time. Labs stable at this time. Already completed antibiotic therapy for community-acquired pneumonia. Was able to be weaned off high flow nasal cannula to 9 L oxy mask with adequate saturations. Will continue to wean as tolerated. Exam Vital Signs Temp Pulse Resp BP Pulse Ox O2 Del Method O2 Flow Rate 97.0 F 64 20 105/64 94 L Oxy Mask 9 12/31/24 12:00 12/31/24 12:54 12/31/24 12:54 12/31/24 12:00 12/31/24 12:54 12/31/24 12:00 12/31/24 12:54 FiO2 65 12/31/24 10:50 Narrative Exam Physical Exam GENERAL: NAD, awake, alert, developmentally delayed, nonverbal HEENT: Dry mucosa. Blind in the right eye CARDIO: Heart RRR, no obvious murmurs PULM: - coughing/dyspnea, good air entry bilaterally GI: Abdomen soft, nondistended, no pain on palpation. BSx4 SKIN/MSK/EXT: No wounds/rashes/edema/amputations, no pain on palpation. Pedal pulses present B/L Objective Labs 12/31/24 05:16 12/31/24 05:16 Labs: Laboratory Results - last 24 hr 12/31/24 05:16 WBC 8.1 RBC 3.40 L Hgb 10.7 L Hct 32.6 L MCV 96 MCH 31.5 MCHC 32.8 RDW Std Deviation 42.5 Plt Count 327 Neut % (Auto) 55 Lymph % (Auto) 25 [place] % (Auto) 12 Eos % (Auto) 1 Baso % (Auto) 1 Neut # (Auto) 4.5 Lymph # (Auto) 2.0 [place] # (Auto) 0.9 H Eos # (Auto) 0.1 Baso # (Auto) 0.1 Immature Gran # (Auto) 0.55 H Absolute Nucleated RBC 0.02 H Immature Gran % 7 H Nucleated RBC % 0 Sodium 141 Potassium 4.6 Chloride 103 Carbon Dioxide 30.3 Anion Gap 8 BUN 16 Creatinine 0.6 Estim Creat Clear Calc 81.8 eGFR > 60 BUN/Creatinine Ratio 27 H Glucose 115 H Calculated Osmolality 283 Calcium 9.3 Corrected Calcium 9.8 Magnesium 2.1 Total Bilirubin 0.2 L AST 34 ALT 38 Alkaline Phosphatase 94 Total Protein 6.5 Albumin 3.4 Globulin 3.1 Albumin/Globulin Ratio 1.1 L ABG Interpretation ABG results: 12/27/24 21:20 ABG pH 7.46 H ABG pCO2 47 ABG pO2 72 L ABG HCO3 33 H ABG O2 Saturation 95 ABG Base Excess 8 H Quality Measures Quality Measures none Assessment & Plan Assessment Current Active Medications: Generic Name Dose Route Start Last Admin Trade Name Freq PRN Reason Stop Dose Admin Acetaminophen 650 mg 12/23/24 16:23 12/23/24 16:51 Acetaminophen 325 Mg Tablet PO 01/22/25 16:22 650 mg Q6H PRN Administration Fever >100.5 Acetaminophen 650 mg 12/23/24 16:23 Acetaminophen 325 Mg Tablet PO 01/22/25 16:22 Q6H PRN PAIN SCALE 1-3 (mild Acetylcysteine 3 ml 12/30/24 13:00 12/31/24 12:50 Acetylcysteine Rt Marisabel 10% 4 Ml Nebu INH 01/29/25 12:59 3 ml Q6HRRT ABBY Administration Atorvastatin Calcium 20 mg 12/24/24 09:00 12/31/24 09:56 Atorvastatin Calcium 20 Mg Tablet PO 01/23/25 08:59 20 mg QDAY ABBY Administration Dextrose 25 ml 12/23/24 16:32 Dextrose 50%-Water Inj 50 Ml Syringe IV 01/22/25 16:31 Q15MIN PRN BG 50-70 responsive npo pt Dextrose 50 ml 12/23/24 16:32 Dextrose 50%-Water Inj 50 Ml Syringe IV 01/22/25 16:31 Q15MIN PRN BG <50 OR BG <70 & pt unresponsive Divalproex Sodium 625 mg 12/24/24 14:45 12/31/24 09:56 Divalproex Sod 125 Mg Sprinkle PO 01/23/25 14:44 625 mg BID ABBY Administration Docusate Sodium 100 mg 12/23/24 16:30 12/31/24 09:56 Docusate Sod 100 Mg Capsule PO 01/22/25 16:29 100 mg QDAY ABBY Administration Protocol Glucagon 1 mg 12/23/24 16:32 Glucagon Inj 1 Mg Vial IM Q15MIN PRN BG <70, and no IV access Insulin Human Lispro 0 unit 12/23/24 17:00 12/31/24 11:23 Insulin Lispro (Admelog) 1 Unit/0.01 Ml Unit SC 01/22/25 16:59 Not Given AC ABBY Protocol Ipratropium [place] 0.5 mg 12/30/24 13:00 12/31/24 12:50 Ipratropium Rt 0.5 Mg/ 2.5 Ml Nebu INH 01/29/25 12:59 0.5 mg Q6HRRT ABBY Administration Mirtazapine 15 mg 12/24/24 21:00 12/30/24 20:29 Mirtazapine 15 Mg Tablet PO 01/23/25 20:59 15 mg HS ABBY Administration Ondansetron HCl 4 mg 12/23/24 16:23 Ondansetron Inj 2 Mg/Ml Inj 2 Ml IV 01/22/25 16:22 Q6H PRN NAUSEA OR VOMITING Protocol Pantoprazole Sodium 40 mg 12/24/24 09:00 12/31/24 09:56 Pantoprazole 40 Mg Tablet PO 01/23/25 08:59 40 mg QDAY ABBY Administration Polyethylene Glycol 17 gm 12/24/24 09:00 12/31/24 09:55 Polyethylene Glycol 17 Gm Packet PO 01/23/25 08:59 17 gm QDAY ABBY Administration Propranolol HCl 20 mg 12/24/24 14:45 12/31/24 10:00 Propranolol 10 Mg Tablet PO 01/23/25 14:44 Not Given BID ABBY Sennosides 8.8 mg 12/23/24 16:45 12/31/24 09:56 Sennosides Syrup 8.8 Mg/5 Ml Udc PO 01/22/25 16:44 8.8 mg QDAY ABBY Administration Protocol Sodium Chloride 1 spray 12/29/24 10:30 12/31/24 09:57 Saline Nasal 45 Ml Btl NASAL 01/28/25 10:29 1 dose BID ABBY Administration Ziprasidone 40 mg 12/24/24 14:45 12/31/24 09:56 Ziprasidone 20 Mg Capsule PO 01/23/25 14:44 40 mg BID ABBY Administration Plan 64-year-old female with past medical history of type 2 diabetes (not on any medications), developmentally delayed, nonverbal at baseline, hyperlipidemia, schizoaffective disorder who was brought into the ED by caregiver due to generalized weakness. Per the caregiver patient has been progressively getting more lethargic for the past 3 days. Patient at baseline is wheelchair-bound but would stand with assistance however in the past days patient has lost interest in her usual daily activities. Patient has had poor appetite and would just spit out the food. Patient also has cough productive of white-yellowish phlegm. Admitted for acute hypoxic respiratory failure secondary to community-acquired pneumonia. #Acute hypoxic respiratory failure likely secondary to community-acquired pneumonia Per caregiver patient has become more lethargic and less active than her baseline Chest x-ray shows bilateral pneumonia Lactic acid normal, Procalcitonin negative Cocci negative, RSV negative, COVID and flu negative Blood cultures negative in 48 hours Manda index 5.86: Low risk of progressing to intubation completed Abx therapy ? Ipratropium 0.5 mg every 4 hours ? on oxymask with saturations > 90% #Right pleural effusion-stable Most likely parapneumonic effusion Less likely malignancy Follow-up x-ray showed right pleural effusion Patient is conserved Dr. Malin gave consent by the phone for right ultrasound- guided thoracentesis Bedside ultrasound was done not enough fluid was found to be tapped at this time. #Transaminitis-resolved Likely secondary to infection Downtrending #Hyperlipidemia ? Continue atorvastatin 20 mg daily #Diabetes mellitus type 2 insulin-dependent Caregiver states patient does not take any medications for diabetes However blood sugars are above the 200s A1c 6.3 ? SSI ? Hypoglycemia protocol in place #Developmentally delayed #Schizoaffective disorder Apparently patient takes Depakote and other medications however medications not showing on EMR ? Continue Depakote ? Continue ziprasidone #History of constipation Per caregiver patient has history of constipation has not had a bowel movement in more than 3 days she takes docusate and MiraLAX at home ? Senna ? Docusate ? MiraLAX Case discussed with my senior Dr. Varela PGY-[address] Roberto Calabrese MD PGY-1 Disposition: Med telemetry Fluids: None Feeding: Carb consistent Thrombo prophylaxis: Heparin Gastric Ulcer prophylaxis: Pantoprazole CODE STATUS: Full code/patient is conserved Disclaimer: Despite multiple revisions, due to the dictation software being used, the document bellow may not be free of grammatical errors including phonetic/typographic errors. However, this does not deter from our commitment to providing health care in the patient's best interest in mind. Attending Provider Attestation/Addendum I attest that I was physically present for the evaluation, physical examination, lab and imaging review of the patient with the residents. I discussed the case with the residents and agree with the findings and plans of care as documented above. At bedside today, patient appears comfortable. Completed her antibiotics course for pneumonia. Transition from high flow to oxygen mask. Patient appears to be breathing from her mouth more than her nose, we will continue oxygen mask and try to wean down the rate As tolerated. Lin Mejia MD
[2024-12-31] MEDS: PROPRANOLOL 10 MG TABLET 20 MG PO (20:14)
[2024-12-31] MEDS: MIRTAZAPINE 15 MG TABLET PO (20:15)
[2025-01-01] VITALS (13 sets, daily range): BP systolic 97–129; BP diastolic 55–76; PULSE 66–90; RESP 13–20; TEMP 36.1–36.4; O2SAT 92–99
[2025-01-01 06:39] LABS: Alanine Aminotransferase 31 U/L (10-49); Albumin, Serum 3.2 gm/dL (3.4-4.8); Albumin/Globulin Ratio 1.1 (1.2-2.2); Alkaline Phosphatase 88 U/L (46-116); Anion Gap 9 (7-16); Aspartate Amino Transferase 26 U/L (0-34); BUN/Creatinine Ratio 32 Ratio (12-20); Bilirubin,Total 0.2 mg/dL (0.3-1.2); Blood Urea Nitrogen 19 mg/dL (9-23); Calcium 8.8 mg/dL (8.3-10.6); Calcium (Corrected) 9.4 mg/dL (8.5-10.1); Chloride 104 mMol/L (98-107); Creatinine (Component) 0.6 mg/dL (0.6-1.3); Estimated Creatinine Clearance 81.8 mL/min (>60); Glucose 112 mg/dL (74-106); Magnesium 2.1 mg/dL (1.6-2.6); Osmolality,Calculated 284 (275-295); Potassium 5.2 mMol/L (3.4-5.1); Sodium 141 mMol/L (136-145); Total Protein 6.2 gm/dL (5.7-8.2); eGFR > 60 See Note
[2025-01-01] MEDS: IPRATROPIUM RT 0.5 MG/ 2.5 ML NEBU INH ×3 (06:41→18:40)
[2025-01-01] MEDS: ACETYLCYSTEINE RT SOL 10% 4 ML NEBU 3 ML INH ×3 (06:41→18:40)
[2025-01-01 07:22] LABS: Basophils # (Auto) 0.1 Thou/mm3 (0.0-0.2); Basophils % (Auto) 1 % (0-2.5); Eosinophils # (Auto) 0.1 Thou/mm3 (0.0-0.5); Eosinophils % (Auto) 2 % (0-10); Hematocrit 33.7 % (36.0-46.0); Hemoglobin 11.2 g/dL (12.0-16.0); Immature Granulocytes % (Auto) 5 % (0-0); Immature Granulocytes Auto 0.48 Thou/mm3 (0.00-0.00); Lymphocytes % (Auto) 23 % (10-50); Mean Corpuscular HGB Conc 33.2 g/dl (31.0-37.0); Mean Corpuscular Hemoglobin 31.2 pg (25.0-35.0); Mean Corpuscular Volume 94 fL (80-100); Monocytes # (Auto) 0.9 Thou/mm3 (0.0-0.8); Monocytes % (Auto) 10 % (0-12); Neutrophils # (Auto) 5.3 Thou/mm3 (1.8-7.7); Neutrophils % (Auto) 59 % (37-80); Nucleated Red Blood Cell % 0 /100 WBC (0); Platelet Count 306 Thou/mm3 (140-440); RDW Standard Deviation 43.3 fL (36.4-46.3); Red Blood Count 3.59 Miln/mm3 (4.00-5.20)
--- NOTE | 2025-01-01 08:05 | XR_ITS ---
EXAMINATION: XR chest 1V portable ORDERING PROVIDER: Lin Mejia MD HISTORY: SOB TECHNIQUE: Single portable AP radiograph of the chest. COMPARISON: 12/26/2024, chest radiographs. FINDINGS: Lines and Tubes: Overlying monitoring leads and medical gas tubing. Lungs: Hypoinflated. Bibasilar left greater than right increased airspace opacities. Pleura: No pneumothorax. Blunting bilateral costophrenic angles, right greater than left. Pulmonary vascular congestion. Increased interstitial markings. Cardiomediastinal Silhouette: Unchanged moderate cardiomegaly. Soft Tissues/Bones: Unchanged. IMPRESSION: 1. Increased bibasilar airspace opacities, pneumonia and/or aspiration. 2. Probable moderate right, small left pleural effusions. 3. Positive fluid balance.
[2025-01-01] MEDS: SENNOSIDES SYRUP 8.8 MG/5 ML UDC PO (10:05)
[2025-01-01] MEDS: POLYETHYLENE GLYCOL 17 GM PACKET PO (10:06)
[2025-01-01] MEDS: DIVALPROEX SOD 125 MG SPRINKLE 625 MG PO ×2 (10:06→22:07)
[2025-01-01] MEDS: ATORVASTATIN CALCIUM 20 MG TABLET PO (10:07)
[2025-01-01] MEDS: PROPRANOLOL 10 MG TABLET 20 MG PO ×2 (10:07→22:15)
[2025-01-01] MEDS: ZIPRASIDONE 20 MG CAPSULE 40 MG PO ×2 (10:07→22:12)
[2025-01-01] MEDS: PANTOPRAZOLE 40 MG TABLET PO (10:08)
[2025-01-01] MEDS: SALINE NASAL 45 ML BTL 1 SPRAY NASAL ×2 (10:08→22:11)
[2025-01-01] MEDS: DOCUSATE SOD 100 MG CAPSULE PO (10:08)
[2025-01-01] MEDS: SOD POLYSTYRENE SULFON SUSP 15 GM/60 ML BTL 60 GM PO (10:09)
[2025-01-01 12:59] LABS: Potassium 4.4 mMol/L (3.4-5.1)
--- NOTE | 2025-01-01 14:51 | ESPR_ITS ---
<Statement entered by Breanna Varela MD - 01/01/25 15:46> I discussed with and supervised the fashion intern physician who took care of this patient. I personally saw and examined the patient and discussed the assessment and plan with the entire medicine team, including my attending , I agree with most of the assessment and plan as documented below Breanna Varela M.D. PGY-2 Documentation for date of: 01/01/25 Subjective Subjective Interval history: Patient seen today at the bedside. No overnight events reported. Vital signs stable at this time. Labs significant for hyperkalemia 1 dose of Kayexalate given. Continue to wean off oxygen currently on OxyMask 4 L will continue to wean off. Exam Vital Signs Temp Pulse Resp BP Pulse Ox O2 Del Method O2 Flow Rate 97.0 F 90 13 122/58 L 96 Oxy Mask 4 01/01/25 12:00 01/01/25 12:44 01/01/25 12:44 01/01/25 12:00 01/01/25 12:44 01/01/25 12:00 01/01/25 12:44 FiO2 6 01/01/25 12:00 Narrative Exam Physical Exam GENERAL: NAD, awake, alert, developmentally delayed, nonverbal HEENT: Dry mucosa. Blind in the right eye CARDIO: Heart RRR, no obvious murmurs PULM: - coughing/dyspnea, good air entry bilaterally GI: Abdomen soft, nondistended, no pain on palpation. BSx4 SKIN/MSK/EXT: No wounds/rashes/edema/amputations, no pain on palpation. Pedal pulses present B/L Objective Labs 01/01/25 06:50 01/01/25 12:46 Labs: Laboratory Results - last 24 hr 01/01/25 01/01/25 01/01/25 05:13 06:50 12:46 WBC 9.0 RBC 3.59 L Hgb 11.2 L Hct 33.7 L MCV 94 MCH 31.2 MCHC 33.2 RDW Std Deviation 43.3 Plt Count 306 Neut % (Auto) 59 Lymph % (Auto) 23 [place] % (Auto) 10 Eos % (Auto) 2 Baso % (Auto) 1 Neut # (Auto) 5.3 Lymph # (Auto) 2.0 [place] # (Auto) 0.9 H Eos # (Auto) 0.1 Baso # (Auto) 0.1 Immature Gran # (Auto) 0.48 H Absolute Nucleated RBC 0.00 Immature Gran % 5 H Nucleated RBC % 0 Sodium 141 Potassium 5.2 H D 4.4 D Chloride 104 Carbon Dioxide 28.0 Anion Gap 9 BUN 19 Creatinine 0.6 Estim Creat Clear Calc 81.8 eGFR > 60 BUN/Creatinine Ratio 32 H Glucose 112 H Calculated Osmolality 284 Calcium 8.8 Corrected Calcium 9.4 Magnesium 2.1 Total Bilirubin 0.2 L AST 26 ALT 31 Alkaline Phosphatase 88 Total Protein 6.2 Albumin 3.2 L Globulin 3.0 Albumin/Globulin Ratio 1.1 L ABG Interpretation ABG results: 12/27/24 21:20 ABG pH 7.46 H ABG pCO2 47 ABG pO2 72 L ABG HCO3 33 H ABG O2 Saturation 95 ABG Base Excess 8 H Quality Measures Quality Measures none Assessment & Plan Assessment Current Active Medications: Generic Name Dose Route Start Last Admin Trade Name Freq PRN Reason Stop Dose Admin Acetaminophen 650 mg 12/23/24 16:23 12/23/24 16:51 Acetaminophen 325 Mg Tablet PO 01/22/25 16:22 650 mg Q6H PRN Administration Fever >100.5 Acetaminophen 650 mg 12/23/24 16:23 Acetaminophen 325 Mg Tablet PO 01/22/25 16:22 Q6H PRN PAIN SCALE 1-3 (mild Acetylcysteine 3 ml 12/30/24 13:00 01/01/25 12:41 Acetylcysteine Rt Marisabel 10% 4 Ml Nebu INH 01/29/25 12:59 3 ml Q6HRRT ABBY Administration Atorvastatin Calcium 20 mg 12/24/24 09:00 01/01/25 10:07 Atorvastatin Calcium 20 Mg Tablet PO 01/23/25 08:59 20 mg QDAY ABBY Administration Dextrose 25 ml 12/23/24 16:32 Dextrose 50%-Water Inj 50 Ml Syringe IV 01/22/25 16:31 Q15MIN PRN BG 50-70 responsive npo pt Dextrose 50 ml 12/23/24 16:32 Dextrose 50%-Water Inj 50 Ml Syringe IV 01/22/25 16:31 Q15MIN PRN BG <50 OR BG <70 & pt unresponsive Divalproex Sodium 625 mg 12/24/24 14:45 01/01/25 10:06 Divalproex Sod 125 Mg Sprinkle PO 01/23/25 14:44 625 mg BID ABBY Administration Docusate Sodium 100 mg 12/23/24 16:30 01/01/25 10:08 Docusate Sod 100 Mg Capsule PO 01/22/25 16:29 100 mg QDAY ABBY Administration Protocol Glucagon 1 mg 12/23/24 16:32 Glucagon Inj 1 Mg Vial IM Q15MIN PRN BG <70, and no IV access Insulin Human Lispro 0 unit 12/23/24 17:00 01/01/25 11:43 Insulin Lispro (Admelog) 1 Unit/0.01 Ml Unit SC 01/22/25 16:59 Not Given AC ABBY Protocol Ipratropium [place] 0.5 mg 12/30/24 13:00 01/01/25 12:42 Ipratropium Rt 0.5 Mg/ 2.5 Ml Nebu INH 01/29/25 12:59 0.5 mg Q6HRRT ABBY Administration Mirtazapine 15 mg 12/24/24 21:00 12/31/24 20:15 Mirtazapine 15 Mg Tablet PO 01/23/25 20:59 15 mg HS ABBY Administration Ondansetron HCl 4 mg 12/23/24 16:23 Ondansetron Inj 2 Mg/Ml Inj 2 Ml IV 01/22/25 16:22 Q6H PRN NAUSEA OR VOMITING Protocol Pantoprazole Sodium 40 mg 12/24/24 09:00 01/01/25 10:08 Pantoprazole 40 Mg Tablet PO 01/23/25 08:59 40 mg QDAY ABBY Administration Polyethylene Glycol 17 gm 12/24/24 09:00 01/01/25 10:06 Polyethylene Glycol 17 Gm Packet PO 01/23/25 08:59 17 gm QDAY ABBY Administration Propranolol HCl 20 mg 12/24/24 14:45 01/01/25 10:07 Propranolol 10 Mg Tablet PO 01/23/25 14:44 20 mg BID ABBY Administration Sennosides 8.8 mg 12/23/24 16:45 01/01/25 10:24 Sennosides Syrup 8.8 Mg/5 Ml Udc PO 01/22/25 16:44 Not Given QDAY ABBY Protocol Sodium Chloride 1 spray 12/29/24 10:30 01/01/25 10:08 Saline Nasal 45 Ml Btl NASAL 01/28/25 10:29 1 spray BID ABBY Administration Ziprasidone 40 mg 12/24/24 14:45 01/01/25 10:07 Ziprasidone 20 Mg Capsule PO 01/23/25 14:44 40 mg BID ABBY Administration Plan 64-year-old female with past medical history of type 2 diabetes (not on any medications), developmentally delayed, nonverbal at baseline, hyperlipidemia, schizoaffective disorder who was brought into the ED by caregiver due to generalized weakness. Per the caregiver patient has been progressively getting more lethargic for the past 3 days. Patient at baseline is wheelchair-bound but would stand with assistance however in the past days patient has lost interest in her usual daily activities. Patient has had poor appetite and would just spit out the food. Patient also has cough productive of white-yellowish phlegm. Admitted for acute hypoxic respiratory failure secondary to community-acquired pneumonia. #Acute hypoxic respiratory failure likely secondary to community-acquired pneumonia Per caregiver patient has become more lethargic and less active than her baseline Chest x-ray shows bilateral pneumonia Lactic acid normal, Procalcitonin negative Cocci negative, RSV negative, COVID and flu negative Blood cultures negative in 48 hours Manda index 5.86: Low risk of progressing to intubation completed Abx therapy ? Ipratropium 0.5 mg every 4 hours ? on oxymask with saturations > 90% #Right pleural effusion-stable Most likely parapneumonic effusion Less likely malignancy Follow-up x-ray showed right pleural effusion Patient is conserved Dr. Malin gave consent by the phone for right ultrasound- guided thoracentesis Bedside ultrasound was done not enough fluid was found to be tapped at this time. #Transaminitis-resolved Likely secondary to infection #Hyperlipidemia ? Continue atorvastatin 20 mg daily #Diabetes mellitus type 2 insulin-dependent Caregiver states patient does not take any medications for diabetes However blood sugars are above the 200s A1c 6.3 ? SSI ? Hypoglycemia protocol in place #Developmentally delayed #Schizoaffective disorder Apparently patient takes Depakote and other medications however medications not showing on EMR ? Continue Depakote ? Continue ziprasidone #History of constipation Per caregiver patient has history of constipation has not had a bowel movement in more than 3 days she takes docusate and MiraLAX at home ? Senna ? Docusate ? MiraLAX Case discussed with my senior Dr. Varela PGY-[address] Roberto Calabrese MD PGY-1 Disposition: Med telemetry Fluids: None Feeding: Carb consistent Thrombo prophylaxis: Heparin Gastric Ulcer prophylaxis: Pantoprazole CODE STATUS: Full code/patient is conserved Disclaimer: Despite multiple revisions, due to the dictation software being used, the document bellow may not be free of grammatical errors including phonetic/typographic errors. However, this does not deter from our commitment to providing health care in the patient's best interest in mind. Attending Provider Attestation/Addendum I attest that I was physically present for the evaluation, physical examination, lab and imaging review of the patient with the residents. I discussed the case with the residents and agree with the findings and plans of care as documented above. At bedside today, patient appears comfortable.? Has been able to tolerate oxy mask, 6 L/min this morning.? We will continue to titrate down as tolerated.? Patient has already completed her antibiotics course.? Patient appears to be a mouth breather, she will have to continue oxygen mask even at discharge.? Plan to discuss with case management. Lin Mejia MD
--- NOTE | 2025-01-01 14:57 | PC.SS ---
Addendum entered by Kayla Montoya 01/01/25 16:01: SS met with mariah Britt staff member at bedside to update about 02 requirements. Balwinder @ [phone]. She confirmed they most likely will be able to take patient back they just need to sign additional documentation for state. They will get back to me. Nursing staff indicates that patient went from 4L back up to 6L today. Original Note: Follow up note: NNEKA left the [facility] a message to verify if they can receive patient back with 02. If not, if we are looking at SNF for patient. Pending response.
[2025-01-01] MEDS: INSULIN LISPRO (AdmeLOG) 1 UNIT/0.01 ML UNIT SC (17:40)
[2025-01-01] MEDS: MIRTAZAPINE 15 MG TABLET PO (22:10)
[2025-01-02] VITALS (11 sets, daily range): BP systolic 95–132; BP diastolic 60–79; PULSE 70–99; RESP 13–21; TEMP 36.1–36.7; O2SAT 92–99
[2025-01-02 06:13] LABS: Basophils # (Auto) 0.1 Thou/mm3 (0.0-0.2); Basophils % (Auto) 1 % (0-2.5); Eosinophils # (Auto) 0.1 Thou/mm3 (0.0-0.5); Eosinophils % (Auto) 1 % (0-10); Hematocrit 32.3 % (36.0-46.0); Hemoglobin 10.9 g/dL (12.0-16.0); Immature Granulocytes % (Auto) 3 % (0-0); Immature Granulocytes Auto 0.29 Thou/mm3 (0.00-0.00); Lymphocytes # (Auto) 1.8 Thou/mm3 (1.0-4.8); Lymphocytes % (Auto) 18 % (10-50); Mean Corpuscular HGB Conc 33.7 g/dl (31.0-37.0); Mean Corpuscular Hemoglobin 31.9 pg (25.0-35.0); Mean Corpuscular Volume 94 fL (80-100); Monocytes % (Auto) 10 % (0-12); Neutrophils # (Auto) 6.8 Thou/mm3 (1.8-7.7); Neutrophils % (Auto) 68 % (37-80); Nucleated Red Blood Cell % 0 /100 WBC (0); Platelet Count 326 Thou/mm3 (140-440); Red Blood Count 3.42 Miln/mm3 (4.00-5.20); White Blood Count 10.1 Thou/mm3 (3.6-11.0)
[2025-01-02 06:52] LABS: Alanine Aminotransferase 26 U/L (10-49); Albumin, Serum 3.5 gm/dL (3.4-4.8); Albumin/Globulin Ratio 1.1 (1.2-2.2); Alkaline Phosphatase 91 U/L (46-116); Anion Gap 9 (7-16); Aspartate Amino Transferase 19 U/L (0-34); BUN/Creatinine Ratio 24 Ratio (12-20); Bilirubin,Total 0.2 mg/dL (0.3-1.2); Blood Urea Nitrogen 17 mg/dL (9-23); Calcium 9.1 mg/dL (8.3-10.6); Calcium (Corrected) 9.5 mg/dL (8.5-10.1); Chloride 102 mMol/L (98-107); Creatinine (Component) 0.7 mg/dL (0.6-1.3); Estimated Creatinine Clearance 70.1 mL/min (>60); Globulin 3.1 gm/dL (2.3-3.5); Glucose 132 mg/dL (74-106); Magnesium 2.2 mg/dL (1.6-2.6); Osmolality,Calculated 288 (275-295); Potassium 3.2 mMol/L (3.4-5.1); Sodium 143 mMol/L (136-145); Total Protein 6.6 gm/dL (5.7-8.2); eGFR > 60 See Note
--- NOTE | 2025-01-02 09:35 | ESDS_ITS ---
Planned Discharge Date 01/02/25 DS: Providers Provider Date of admission: 12/23/24 18:41 Primary care physician: Shabbir Calabrese MD Admitting Provider: Hiwot Nazario DO Attending Provider on Admission: Lin Mejia MD Consults: 12/23/24 16:33 Referral Registered Dietitian Routine Comment: 12/24/24 05:59 Referral Registered Dietitian Stat Comment: pt DD NONVERBAL 12/24/24 07:39 Referral Speech Therapy Stat Comment: swallow evaluation 12/25/24 10:14 Referral Speech Therapy Stat Comment: Attending Provider on DC: Lin Mejia MD Discharging Provider: Viktor Calabrese MD Anticipated date of discharge: 01/02/25 DS: Diagnosis Problem List Completed Was Problem List Reviewed/Reconciled?: Yes Hospital Course Hospital Course Hospital course: 64-year-old female with past medical history of type 2 diabetes (not on any medications), developmentally delayed, nonverbal at baseline, hyperlipidemia, schizoaffective disorder who was brought into the ED by caregiver due to generalized weakness. Per the caregiver patient has been progressively getting more lethargic for a few days. Patient at baseline is wheelchair-bound but would stand with assistance however in the past days patient has lost interest in her usual daily activities. Patient also has cough productive of white-yellowish phlegm. Admitted for acute hypoxic respiratory failure secondary to community- acquired pneumonia. During hospital stay patient was managed with IV antibiotic therapy which she completed during hospital stay. Patient was also provided with breathing treatments. At one point patient's oxygen requirements had increased and was placed on high flow nasal cannula. And was slowly weaned off to nasal cannula. Patient was also found to have right pleural effusion however was evaluated with supervisor border department via bedside ultrasound and found not enough fluid to have any type of intervention at that time. At this time patient is oxygen requirements are minimal. Patient is stable to be discharged with minimal oxygen requirements on nasal cannula. At this time patient is medically stable for discharge. Patient is instructed to follow-up with primary care physician within 1 week of discharge. Please continue all your medications as prescribed. Should any symptoms recur or worsen patient is instructed to return to the ED. Problem List: #Acute hypoxic respiratory failure likely secondary to community-acquired pneumonia-resolved #Right pleural effusion-stable #Transaminitis-resolved #Hyperlipidemia #Diabetes mellitus type 2 insulin-dependent #Developmentally delayed #Schizoaffective disorder #History of constipation Case discussed with my attending Dr. Roberto Calabrese MD PGY-1 Status at Discharge Functional status at discharge: wheelchair bound Overall status at discharge: patient is back to baseline Time Spent with Patient Time attestation: Total time spent providing and/or coordinating discharge services: Time spent: Greater than 30 minutes Exam Vital Signs Temp Pulse Resp BP Pulse Ox O2 Del Method O2 Flow Rate 98.0 F 75 15 114/79 99 Nasal Cannula 5 01/02/25 08:00 01/02/25 08:00 01/02/25 08:00 01/02/25 08:00 01/02/25 08:00 01/02/25 08:00 01/02/25 08:00 FiO2 6 01/02/25 08:00 Narrative Exam Physical Exam GENERAL: NAD, awake, alert, developmentally delayed, nonverbal HEENT: Dry mucosa. Blind in the right eye CARDIO: Heart RRR, no obvious murmurs PULM: - coughing/dyspnea, good air entry bilaterally GI: Abdomen soft, nondistended, no pain on palpation. BSx4 SKIN/MSK/EXT: No wounds/rashes/edema/amputations, no pain on palpation. Pedal pulses present B/L Discharge Plan Plan Patient Disposition: HOME (Self Care) Disposition Comment: Stable Care Plan Goals: Follow up with your primary care physician within 1 week of discharge please continue all your medications as prescribed Should any symptoms recur or worsen patient is instructed to retrun to the ED. Prescriptions/Referrals Prescriptions/Med Rec: Continued multivitamin [Tab-A-Jessica] 1 TAB tablet 1 tab PO QDAY Qty: 0 famotidine [Pepcid] 40 MG tablet 40 mg PO QPM Qty: 0 Patient Comments: TO SUPPRESS GASTRIC ACID SECRETIONS acetaminophen [Tylenol Extra Strength] 500 MG tablet 2 tab PO Q6HR PRN (Reason: PAIN) Qty: 0 Patient Comments: FOR FEVER OR PAIN docusate sodium [DOK] 250 MG capsule 250 mg PO HS Qty: 0 lactulose 10 GM/15 ML solution 15 ml PO BID Qty: 0 Divalproex Sodium SPRINKLE * (DEPAKOTE SPRINKLE *) 125 MG CAP.SPRINK 625 mg PO BID Qty: 0 Mag Hyd/Alum Hyd/Simeth SUSP * (MAALOX EX STR SUSP *) 355 ML ORAL.SUSP 2 tbsp PO TID PRN (Reason: INDIGESTION) Qty: 355 metformin [Glucophage] 500 MG tablet 500 mg PO BIDAC Qty: 100 0RF insulin glargine [Lantus U-100 Insulin] 100 U/ML solution 15 unit Sub-Q QDAY Qty: 30 0RF atorvastatin 20 mg tablet 20 mg PO QDAY ziprasidone HCl 40 mg capsule 40 mg PO BID mirtazapine 15 mg tablet 15 mg PO HS propranolol 20 mg tablet 20 mg PO BID loratadine 10 mg tablet 10 mg PO QDAY bisacodyl 10 mg suppository [place] Discontinued AVORSTATIN 20 mg PO QDAY Qty: 0 omeprazole 40 mg capsule,delayed release(DR/EC) 40 mg PO QDAY divalproex 125 mg capsule, delayed rel sprinkle PO Referrals: Shabbir Calabrese MD [Primary Care Provider] - Patient/Caregiver Discharge Instructions Education Materials: Thoracentesis Dc Print Language: Macedonian Stand Alone Forms: Janell Award Info., Patient Portal Info Letter Discharge Order Discharge Orders: Discharge (Routine); Ordered 01/02/25 Ordered By: Viktor Calabrese Quality Discharge Quality Measures VTE prophylaxis Attestestation MD Attestation I attest that I was physically present for the evaluation, physical examination, lab and imaging review of the patient with the residents. I discussed the case with the residents and agree with the findings and plans of care as documented above. At bedside today, patient appears comfortable, saturating well on 2 L nasal cannula. Rest of the vital signs and lab results have been stable except for potassium of 3.2, which has been repleted accordingly. Patient has already completed her antibiotics course. We will discharge patient back to her nursing home on supplemental oxygen. Recommended follow-up with PCP in 1 to 2 weeks of discharge. Lin Mejia MD
[2025-01-02] MEDS: DOCUSATE SOD 100 MG CAPSULE PO (09:41)
[2025-01-02] MEDS: SENNOSIDES SYRUP 8.8 MG/5 ML UDC PO ×2 (09:41→09:53)
[2025-01-02] MEDS: POTASSIUM CHLORIDE 10% 20 MEQ/15 ML UDC 40 MEQ PO (09:41)
[2025-01-02] MEDS: POLYETHYLENE GLYCOL 17 GM PACKET PO (09:41)
[2025-01-02] MEDS: ZIPRASIDONE 20 MG CAPSULE 40 MG PO ×2 (09:41→21:27)
[2025-01-02] MEDS: PANTOPRAZOLE 40 MG TABLET PO (09:42)
[2025-01-02] MEDS: SALINE NASAL 45 ML BTL 1 SPRAY NASAL ×2 (09:42→21:28)
[2025-01-02] MEDS: DIVALPROEX SOD 125 MG SPRINKLE 625 MG PO ×2 (09:42→21:27)
[2025-01-02] MEDS: ATORVASTATIN CALCIUM 20 MG TABLET PO (09:42)
[2025-01-02] MEDS: PROPRANOLOL 10 MG TABLET 20 MG PO ×2 (09:42→21:26)
--- NOTE | 2025-01-02 13:05 | PC.SS ---
SS attempted to contact assisted analytic programmer, Cara Bateman from [facility], no answer VM left for call back
--- NOTE | 2025-01-02 13:49 | PC.SS ---
NNEKA received a call from Balwinder @ [phone] in regards to pt DC, NNEKA informed her pt is ready for DC and is on 2L per Balwinder she will verify and call NNEKA back
[2025-01-02] MEDS: MIRTAZAPINE 15 MG TABLET PO (21:27)
[2025-01-03] VITALS (12 sets, daily range): BP systolic 104–126; BP diastolic 58–72; PULSE 66–76; RESP 16–20; TEMP 36.1–36.6; O2SAT 91–97
[2025-01-03 05:48] LABS: Basophils % (Auto) 1 % (0-2.5); Eosinophils # (Auto) 0.1 Thou/mm3 (0.0-0.5); Eosinophils % (Auto) 1 % (0-10); Hematocrit 32.1 % (36.0-46.0); Hemoglobin 10.6 g/dL (12.0-16.0); Immature Granulocytes % (Auto) 4 % (0-0); Lymphocytes # (Auto) 2.3 Thou/mm3 (1.0-4.8); Lymphocytes % (Auto) 29 % (10-50); Mean Corpuscular Hemoglobin 31.5 pg (25.0-35.0); Mean Corpuscular Volume 95 fL (80-100); Monocytes # (Auto) 0.8 Thou/mm3 (0.0-0.8); Monocytes % (Auto) 10 % (0-12); Neutrophils # (Auto) 4.2 Thou/mm3 (1.8-7.7); Neutrophils % (Auto) 55 % (37-80); Nucleated Red Blood Cell % 0 /100 WBC (0); Platelet Count 283 Thou/mm3 (140-440); RDW Standard Deviation 43.7 fL (36.4-46.3); Red Blood Count 3.37 Miln/mm3 (4.00-5.20); White Blood Count 7.8 Thou/mm3 (3.6-11.0)
[2025-01-03 06:00] LABS: Alanine Aminotransferase 19 U/L (10-49); Albumin, Serum 3.3 gm/dL (3.4-4.8); Albumin/Globulin Ratio 1.1 (1.2-2.2); Alkaline Phosphatase 87 U/L (46-116); Anion Gap 8 (7-16); Aspartate Amino Transferase 18 U/L (0-34); BUN/Creatinine Ratio 25 Ratio (12-20); Bilirubin,Total 0.2 mg/dL (0.3-1.2); Blood Urea Nitrogen 15 mg/dL (9-23); Calcium 9.1 mg/dL (8.3-10.6); Calcium (Corrected) 9.7 mg/dL (8.5-10.1); Carbon Dioxide 30.4 mMol/L (20.0-31.0); Chloride 104 mMol/L (98-107); Creatinine (Component) 0.6 mg/dL (0.6-1.3); Estimated Creatinine Clearance 81.8 mL/min (>60); Glucose 138 mg/dL (74-106); Magnesium 2.1 mg/dL (1.6-2.6); Osmolality,Calculated 285 (275-295); Potassium 3.9 mMol/L (3.4-5.1); Sodium 142 mMol/L (136-145); Total Protein 6.3 gm/dL (5.7-8.2); eGFR > 60 See Note
--- NOTE | 2025-01-03 07:25 | PD.RESDS ---
Planned Discharge Date 01/03/25 DS: Providers Provider Date of admission: 12/23/24 18:41 Primary care physician: Shabbir Calabrese MD Admitting Provider: Hiwot Nazario DO Attending Provider on Admission: Lin Mejia MD Consults: 12/23/24 16:33 Referral Registered Dietitian Routine Comment: 12/24/24 05:59 Referral Registered Dietitian Stat Comment: pt DD NONVERBAL 12/24/24 07:39 Referral Speech Therapy Stat Comment: swallow evaluation 12/25/24 10:14 Referral Speech Therapy Stat Comment: Attending Provider on DC: Dinah Denise MD Discharging Provider: Dinah Denise MD Hospital Course Hospital Course Hospital course: 64-year-old female with past medical history of type 2 diabetes (not on any medications), developmentally delayed, nonverbal at baseline, hyperlipidemia, schizoaffective disorder who was brought into the ED by caregiver due to generalized weakness. Per the caregiver patient has been progressively getting more lethargic for a few days. Patient at baseline is wheelchair-bound but would stand with assistance however in the past days patient has lost interest in her usual daily activities. Patient also has cough productive of white-yellowish phlegm. Admitted for acute hypoxic respiratory failure secondary to community-acquired pneumonia. During hospital stay patient was managed with IV antibiotic therapy which she completed during hospital stay. Patient was also provided with breathing treatments. At one point patient's oxygen requirements had increased and was placed on high flow nasal cannula. And was slowly weaned off to nasal cannula. Patient was also found to have right pleural effusion however was evaluated with tech writer via bedside ultrasound and found not enough fluid to have any type of intervention at that time. At this time patient is oxygen requirements are minimal. Patient is stable to be discharged with minimal oxygen requirements on nasal cannula. At this time patient is medically stable for discharge. Patient is instructed to follow-up with primary care physician within 1 week of discharge. Please continue all your medications as prescribed. Should any symptoms recur or worsen patient is instructed to return to the ED. Problem List: #Acute hypoxic respiratory failure likely secondary to community-acquired pneumonia-resolved #Right pleural effusion-stable #Transaminitis-resolved #Hyperlipidemia #Diabetes mellitus type 2 insulin-dependent #Developmentally delayed #Schizoaffective disorder #History of constipation Case discussed with my attending Dr. Roberto Calabrese, MD PGY-1 Time Spent with Patient Time attestation: Total time spent providing and/or coordinating discharge services: Exam Vital Signs Temp Pulse Resp BP Pulse Ox O2 Del Method O2 Flow Rate 97.4 F 72 18 109/58 L 95 Nasal Cannula 5 01/03/25 04:00 01/03/25 06:53 01/03/25 06:53 01/03/25 04:00 01/03/25 06:53 01/03/25 04:00 01/03/25 06:53 FiO2 6 01/02/25 16:00 Discharge Plan Plan Patient Disposition: HOME (Self Care) Disposition Comment: Stable Care Plan Goals: Follow up with your primary care physician within 1 week of discharge please continue all your medications as prescribed Should any symptoms recur or worsen patient is instructed to retrun to the ED. Prescriptions/Referrals Prescriptions/Med Rec: Continued multivitamin [Tab-A-Jessica] 1 TAB tablet 1 tab PO QDAY Qty: 0 famotidine [Pepcid] 40 MG tablet 40 mg PO QPM Qty: 0 Patient Comments: TO SUPPRESS GASTRIC ACID SECRETIONS acetaminophen [Tylenol Extra Strength] 500 MG tablet 2 tab PO Q6HR PRN (Reason: PAIN) Qty: 0 Patient Comments: FOR FEVER OR PAIN docusate sodium [DOK] 250 MG capsule 250 mg PO HS Qty: 0 lactulose 10 GM/15 ML solution 15 ml PO BID Qty: 0 Divalproex Sodium SPRINKLE * (DEPAKOTE SPRINKLE *) 125 MG CAP.SPRINK 625 mg PO BID Qty: 0 Mag Hyd/Alum Hyd/Simeth SUSP * (MAALOX EX STR SUSP *) 355 ML ORAL.SUSP 2 tbsp PO TID PRN (Reason: INDIGESTION) Qty: 355 metformin [Glucophage] 500 MG tablet 500 mg PO BIDAC Qty: 100 0RF insulin glargine [Lantus U-100 Insulin] 100 U/ML solution 15 unit Sub-Q QDAY Qty: 30 0RF atorvastatin 20 mg tablet 20 mg PO QDAY ziprasidone HCl 40 mg capsule 40 mg PO BID mirtazapine 15 mg tablet 15 mg PO HS propranolol 20 mg tablet 20 mg PO BID loratadine 10 mg tablet 10 mg PO QDAY bisacodyl 10 mg suppository [place] Discontinued AVORSTATIN 20 mg PO QDAY Qty: 0 omeprazole 40 mg capsule,delayed release(DR/EC) 40 mg PO QDAY divalproex 125 mg capsule, delayed rel sprinkle PO Referrals: Shabbir Calabrese MD [Primary Care Provider] - Patient/Caregiver Discharge Instructions Education Materials: Thoracentesis Dc Print Language: Lithuanian Stand Alone Forms: Janell Award Info., Patient Portal Info Letter Discharge Order Discharge Orders: Discharge (Routine); Ordered 01/02/25 Ordered By: Viktor Calabrese
[2025-01-03] MEDS: PROPRANOLOL 10 MG TABLET 20 MG PO (09:33)
[2025-01-03] MEDS: DIVALPROEX SOD 125 MG SPRINKLE 625 MG PO ×2 (09:33→21:10)
[2025-01-03] MEDS: ZIPRASIDONE 20 MG CAPSULE 40 MG PO ×2 (09:40→21:10)
[2025-01-03] MEDS: ATORVASTATIN CALCIUM 20 MG TABLET PO (09:40)
[2025-01-03] MEDS: POLYETHYLENE GLYCOL 17 GM PACKET PO (09:40)
[2025-01-03] MEDS: SALINE NASAL 45 ML BTL 1 SPRAY NASAL ×2 (09:40→21:11)
[2025-01-03] MEDS: PANTOPRAZOLE 40 MG TABLET PO (09:41)
[2025-01-03] MEDS: DOCUSATE SOD 100 MG CAPSULE PO (09:41)
[2025-01-03] MEDS: SENNOSIDES SYRUP 8.8 MG/5 ML UDC PO (09:43)
--- NOTE | 2025-01-03 10:29 | PC.SS ---
Follow up note: Patient is currently at 5L and will need 02 RA testing to order new 02. Pending longterm staff approval. Possible d/c 1-2 days. 02 needs to be ordered and delivered.
--- NOTE | 2025-01-03 15:25 | ESPR_ITS ---
Documentation for date of: 01/03/25 Subjective Subjective Interval history: No overnight acute events Today at bedside patient is at mentation baseline, tolerating p.o. saturating 93% on 2 L per nasal cannula. Patient is safe and stable to be discharged to assisted, pending O2 oxygen arrangement to be able to be discharged. Case management is informed of the case Exam Vital Signs Temp Pulse Resp BP Pulse Ox O2 Del Method O2 Flow Rate 97.2 F 67 19 114/66 97 Humidified Nasal Cannula 4 01/03/25 12:00 01/03/25 12:00 01/03/25 12:00 01/03/25 12:00 01/03/25 12:00 01/03/25 12:00 01/03/25 12:00 FiO2 6 01/02/25 16:00 Narrative Exam General: No acute distress, frail. HEENT: NC/AT, PERRL, EOMI, moist mucous membranes. Neck: Supple, No masses, No adenopathy, carotid pulse 2+ bilaterally without bruits, No JVD, normal range of motion. Chest: Symmetrical, atraumatic, and with equal expansion , Nontender on palpation no deformity and no crepitus. CVS: S1 and S2 present, Regular rate and rhythm, No murmurs, rubs or gallops perceived during auscultation. Lungs: Normal respiratory effort, coarse breath sounds bilaterally, no wheezing, rhonchi or crackles perceived during auscultation Abdomen : Soft, no tenderness to palpation, no guarding ,no rebound, +BS Extremities: No edema, warm well perfused, normal tone and ROM, strength and sensation intact, cap refill less than 2, able to move all 4 extremities spontaneously. Skin: Intact, no rashes, no lesions, no erythema or jaundice noted Neuro: Difficult to assess due to patient mentation based Psych: Difficult to assess patient mental status Objective Labs 01/03/25 04:21 01/03/25 04:21 Labs: Laboratory Results - last 24 hr 01/03/25 04:21 WBC 7.8 RBC 3.37 L Hgb 10.6 L Hct 32.1 L MCV 95 MCH 31.5 MCHC 33.0 RDW Std Deviation 43.7 Plt Count 283 D Neut % (Auto) 55 Lymph % (Auto) 29 [place] % (Auto) 10 Eos % (Auto) 1 Baso % (Auto) 1 Neut # (Auto) 4.2 Lymph # (Auto) 2.3 [place] # (Auto) 0.8 Eos # (Auto) 0.1 Baso # (Auto) 0.0 Immature Gran # (Auto) 0.30 H Absolute Nucleated RBC 0.00 Immature Gran % 4 H Nucleated RBC % 0 Sodium 142 Potassium 3.9 D Chloride 104 Carbon Dioxide 30.4 Anion Gap 8 BUN 15 Creatinine 0.6 Estim Creat Clear Calc 81.8 eGFR > 60 BUN/Creatinine Ratio 25 H Glucose 138 H Calculated Osmolality 285 Calcium 9.1 Corrected Calcium 9.7 Magnesium 2.1 Total Bilirubin 0.2 L AST 18 ALT 19 Alkaline Phosphatase 87 Total Protein 6.3 Albumin 3.3 L Globulin 3.0 Albumin/Globulin Ratio 1.1 L ABG Interpretation ABG results: 12/27/24 21:20 ABG pH 7.46 H ABG pCO2 47 ABG pO2 72 L ABG HCO3 33 H ABG O2 Saturation 95 ABG Base Excess 8 H Quality Measures Quality Measures VTE prophylaxis Assessment & Plan Assessment Current Active Medications: Generic Name Dose Route Start Last Admin Trade Name Freq PRN Reason Stop Dose Admin Acetaminophen 650 mg 12/23/24 16:23 12/23/24 16:51 Acetaminophen 325 Mg Tablet PO 01/22/25 16:22 650 mg Q6H PRN Administration Fever >100.5 Acetaminophen 650 mg 12/23/24 16:23 Acetaminophen 325 Mg Tablet PO 01/22/25 16:22 Q6H PRN PAIN SCALE 1-3 (mild Atorvastatin Calcium 20 mg 12/24/24 09:00 01/03/25 09:40 Atorvastatin Calcium 20 Mg Tablet PO 01/23/25 08:59 20 mg QDAY ABBY Administration Dextrose 25 ml 12/23/24 16:32 Dextrose 50%-Water Inj 50 Ml Syringe IV 01/22/25 16:31 Q15MIN PRN BG 50-70 responsive npo pt Dextrose 50 ml 12/23/24 16:32 Dextrose 50%-Water Inj 50 Ml Syringe IV 01/22/25 16:31 Q15MIN PRN BG <50 OR BG <70 & pt unresponsive Divalproex Sodium 625 mg 12/24/24 14:45 01/03/25 09:33 Divalproex Sod 125 Mg Sprinkle PO 01/23/25 14:44 625 mg BID ABBY Administration Docusate Sodium 100 mg 12/23/24 16:30 01/03/25 09:41 Docusate Sod 100 Mg Capsule PO 01/22/25 16:29 100 mg QDAY ABBY Administration Protocol Glucagon 1 mg 12/23/24 16:32 Glucagon Inj 1 Mg Vial IM Q15MIN PRN BG <70, and no IV access Insulin Human Lispro 0 unit 12/23/24 17:00 01/03/25 11:35 Insulin Lispro (Admelog) 1 Unit/0.01 Ml Unit SC 01/22/25 16:59 Not Given AC ABBY Protocol Ipratropium [place] 0.5 mg 01/02/25 01:42 Ipratropium Rt 0.5 Mg/ 2.5 Ml Nebu INH 02/01/25 02:59 Q4HRRT PRN sob/wheeze Mirtazapine 15 mg 12/24/24 21:00 01/02/25 21:27 Mirtazapine 15 Mg Tablet PO 01/23/25 20:59 15 mg HS ABBY Administration Ondansetron HCl 4 mg 12/23/24 16:23 Ondansetron Inj 2 Mg/Ml Inj 2 Ml IV 01/22/25 16:22 Q6H PRN NAUSEA OR VOMITING Protocol Pantoprazole Sodium 40 mg 12/24/24 09:00 01/03/25 09:41 Pantoprazole 40 Mg Tablet PO 01/23/25 08:59 40 mg QDAY ABBY Administration Polyethylene Glycol 17 gm 12/24/24 09:00 01/03/25 09:40 Polyethylene Glycol 17 Gm Packet PO 01/23/25 08:59 17 gm QDAY ABBY Administration Propranolol HCl 20 mg 12/24/24 14:45 01/03/25 09:33 Propranolol 10 Mg Tablet PO 01/23/25 14:44 20 mg BID ABBY Administration Sennosides 8.8 mg 12/23/24 16:45 01/03/25 09:43 Sennosides Syrup 8.8 Mg/5 Ml Udc PO 01/22/25 16:44 8.8 mg QDAY ABBY Administration Protocol Sodium Chloride 1 spray 12/29/24 10:30 01/03/25 09:40 Saline Nasal 45 Ml Btl NASAL 01/28/25 10:29 1 spray BID ABBY Administration Ziprasidone 40 mg 12/24/24 14:45 01/03/25 09:40 Ziprasidone 20 Mg Capsule PO 01/23/25 14:44 40 mg BID [facility] Administration Plan 64-year-old female with past medical history of type 2 diabetes (not on any medications), developmentally delayed, nonverbal at baseline, hyperlipidemia, schizoaffective disorder who was brought into the ED by caregiver due to generalized weakness. Per the caregiver patient has been progressively getting more lethargic for the past 3 days. Patient at baseline is wheelchair-bound but would stand with assistance however in the past days patient has lost interest in her usual daily activities. Patient has had poor appetite and would just spit out the food. Patient also has cough productive of white-yellowish phlegm. Admitted for acute hypoxic respiratory failure secondary to community-acquired pneumonia. #Acute hypoxic respiratory failure likely secondary to community-acquired pneumonia improving Per caregiver patient has become more lethargic and less active than her baseline Chest x-ray shows bilateral pneumonia Lactic acid normal, Procalcitonin negative Cocci negative, RSV negative, COVID and flu negative Blood cultures negative in 48 hours Manda index 5.86: Low risk of progressing to intubation completed Abx therapy ? Ipratropium 0.5 mg every 4 hours ? Titrate oxygen to keep saturations above on nasal cannula> 90% #Right pleural effusion-stable Most likely parapneumonic effusion Less likely malignancy Follow-up x-ray showed right pleural effusion Patient is conserved Dr. Malin gave consent by the phone for right ultrasound- guided thoracentesis Bedside ultrasound was done not enough fluid was found to be tapped at this time. #Transaminitis resolved Likely secondary to infection #Hyperlipidemia ? Continue atorvastatin 20 mg daily #Diabetes mellitus type 2 insulin-dependent Caregiver states patient does not take any medications for diabetes However blood sugars are above the 200s A1c 6.3 ? SSI ? Hypoglycemia protocol in place #Developmentally delayed #Schizoaffective disorder Apparently patient takes Depakote and other medications however medications not showing on EMR ? Continue Depakote ? Continue ziprasidone #History of constipation Per caregiver patient has history of constipation has not had a bowel movement in more than 3 days she takes docusate and MiraLAX at home ? Senna ? Docusate ? MiraLAX Disposition: Med telemetry Fluids: None Feeding: Carb consistent Thrombo prophylaxis: Heparin Gastric Ulcer prophylaxis: Pantoprazole CODE STATUS: Full code/patient is conserved Patient discussed with my attending Dr Roberto Denise MD PGY-3 Disclaimer: Despite multiple revisions, due to the dictation software being used, the document bellow may not be free of grammatical errors including phonetic/typographic errors. However, this does not deter from our commitment to providing health care in the patient's best interest in mind. Attending Provider Attestation/Addendum I attest that I was physically present for the evaluation, physical examination, lab and imaging review of the patient with the residents. I discussed the case with the residents and agree with the findings and plans of care as documented above. Patient continues to be comfortable at bedside, saturating well on 2 L nasal cannula. Awaiting home oxygen set up before discharge. Lin Mejia MD
[2025-01-03] MEDS: MIRTAZAPINE 15 MG TABLET PO (21:10)
[2025-01-04] VITALS (8 sets, daily range): BP systolic 100–139; BP diastolic 68–91; PULSE 67–88; RESP 14–18; TEMP 36.1–36.5; O2SAT 91–94
[2025-01-04] MEDS: DIVALPROEX SOD 125 MG SPRINKLE 625 MG PO ×3 (10:00→21:24)
[2025-01-04] MEDS: POLYETHYLENE GLYCOL 17 GM PACKET PO (10:01)
[2025-01-04] MEDS: SALINE NASAL 45 ML BTL 1 SPRAY NASAL ×2 (10:01→21:32)
[2025-01-04] MEDS: ATORVASTATIN CALCIUM 20 MG TABLET PO (10:02)
[2025-01-04] MEDS: PROPRANOLOL 10 MG TABLET 20 MG PO ×2 (10:02→21:31)
[2025-01-04] MEDS: PANTOPRAZOLE 40 MG TABLET PO (10:02)
[2025-01-04] MEDS: DOCUSATE SOD 100 MG CAPSULE PO (10:02)
[2025-01-04] MEDS: ZIPRASIDONE 20 MG CAPSULE 40 MG PO ×2 (10:02→21:24)
[2025-01-04] MEDS: SENNOSIDES SYRUP 8.8 MG/5 ML UDC PO (10:05)
--- NOTE | 2025-01-04 13:28 | ESDS_ITS ---
<Statement entered by Breanna Varela MD - 01/04/25 15:55> I discussed with and supervised the jewelry internship physician who took care of this patient. I personally saw and examined the patient and discussed the assessment and plan with the entire medicine team, including my attending Dr. Mejia, I agree with most of the assessment and plan as documented below Breanna Varela M.D. PGY-2 Planned Discharge Date 01/04/25 DS: Providers Provider Date of admission: 12/23/24 18:41 Primary care physician: Shabbir Calabrese MD Admitting Provider: Hiwot Nazario DO Attending Provider on Admission: Lin Mejia MD Consults: 12/23/24 16:33 Referral Registered Dietitian Routine Comment: 12/24/24 05:59 Referral Registered Dietitian Stat Comment: pt DD NONVERBAL 12/24/24 07:39 Referral Speech Therapy Stat Comment: swallow evaluation 12/25/24 10:14 Referral Speech Therapy Stat Comment: Attending Provider on DC: Lin Mejia MD Discharging Provider: Viktor Calabrese MD Anticipated date of discharge: 01/04/25 DS: Diagnosis Problem List Completed Was Problem List Reviewed/Reconciled?: Yes Hospital Course Hospital Course Hospital course: 64-year-old female with past medical history of type 2 diabetes (not on any medications), developmentally delayed, nonverbal at baseline, hyperlipidemia, schizoaffective disorder who was brought into the ED by caregiver due to generalized weakness. Per the caregiver patient has been progressively getting more lethargic for a few days. Patient at baseline is wheelchair-bound but would stand with assistance however in the past days patient has lost interest in her usual daily activities. Patient also has cough productive of white-yellowish phlegm. Admitted for acute hypoxic respiratory failure secondary to community- acquired pneumonia. During hospital stay patient was managed with IV antibiotic therapy which she completed during hospital stay. Patient was also provided with breathing treatments. At one point patient's oxygen requirements had increased and was placed on high flow nasal cannula. And was slowly weaned off to nasal cannula. Patient was also found to have right pleural effusion however was evaluated with bakery associate via bedside ultrasound and found not enough fluid to have any type of intervention at that time. At this time patient is oxygen requirements are minimal. Patient is stable to be discharged with minimal oxygen requirements on nasal cannula. At this time patient is medically stable for discharge. Patient is instructed to follow-up with primary care physician within 1 week of discharge. Please continue all your medications as prescribed. Should any symptoms recur or worsen patient is instructed to return to the ED. Problem List: #Acute hypoxic respiratory failure likely secondary to community-acquired pneumonia-resolved #Right pleural effusion-stable #Transaminitis-resolved #Hyperlipidemia #Diabetes mellitus type 2 insulin-dependent #Developmentally delayed #Schizoaffective disorder #History of constipation Case discussed with my senior Dr. Varela PGY-[address] Roberto Calabrese MD PGY-1 Status at Discharge Functional status at discharge: wheelchair bound Overall status at discharge: patient is back to baseline Time Spent with Patient Time attestation: Total time spent providing and/or coordinating discharge services: Time spent: Greater than 30 minutes Exam Vital Signs Temp Pulse Resp BP Pulse Ox O2 Del Method O2 Flow Rate 97.6 F 75 18 109/71 91 L Nasal Cannula 3 01/04/25 08:00 01/04/25 10:02 01/04/25 08:00 01/04/25 10:02 01/04/25 08:00 01/04/25 08:00 01/04/25 08:00 FiO2 6 01/03/25 16:00 Narrative Exam Physical Exam GENERAL: NAD, awake, alert, developmentally delayed, nonverbal HEENT: Dry mucosa. Blind in the right eye CARDIO: Heart RRR, no obvious murmurs PULM: - coughing/dyspnea, good air entry bilaterally GI: Abdomen soft, nondistended, no pain on palpation. BSx4 SKIN/MSK/EXT: No wounds/rashes/edema/amputations, no pain on palpation. Pedal pulses present B/L Discharge Plan Plan Patient Disposition: HOME (Self Care) Disposition Comment: Stable Care Plan Goals: Follow up with your primary care physician within 1 week of discharge please continue all your medications as prescribed Should any symptoms recur or worsen patient is instructed to retrun to the ED. Oxygen 2 L per nasal cannula as needed to keep O2 sat above 90 Prescriptions/Referrals Prescriptions/Med Rec: Continued multivitamin [Tab-A-Jessica] 1 TAB tablet 1 tab PO QDAY Qty: 0 famotidine [Pepcid] 40 MG tablet 40 mg PO QPM Qty: 0 Patient Comments: TO SUPPRESS GASTRIC ACID SECRETIONS acetaminophen [Tylenol Extra Strength] 500 MG tablet 2 tab PO Q6HR PRN (Reason: PAIN) Qty: 0 Patient Comments: FOR FEVER OR PAIN docusate sodium [DOK] 250 MG capsule 250 mg PO HS Qty: 0 lactulose 10 GM/15 ML solution 15 ml PO BID Qty: 0 Divalproex Sodium SPRINKLE * (DEPAKOTE SPRINKLE *) 125 MG CAP.SPRINK 625 mg PO BID Qty: 0 Mag Hyd/Alum Hyd/Simeth SUSP * (MAALOX EX STR SUSP *) 355 ML ORAL.SUSP 2 tbsp PO TID PRN (Reason: INDIGESTION) Qty: 355 metformin [Glucophage] 500 MG tablet 500 mg PO BIDAC Qty: 100 0RF insulin glargine [Lantus U-100 Insulin] 100 U/ML solution 15 unit Sub-Q QDAY Qty: 30 0RF atorvastatin 20 mg tablet 20 mg PO QDAY ziprasidone HCl 40 mg capsule 40 mg PO BID mirtazapine 15 mg tablet 15 mg PO HS propranolol 20 mg tablet 20 mg PO BID loratadine 10 mg tablet 10 mg PO QDAY bisacodyl 10 mg suppository LA Discontinued AVORSTATIN 20 mg PO QDAY Qty: 0 omeprazole 40 mg capsule,delayed release(DR/EC) 40 mg PO QDAY divalproex 125 mg capsule, delayed rel sprinkle PO Referrals: Shabbir Calabrese MD [Primary Care Provider] - Patient/Caregiver Discharge Instructions Education Materials: Thoracentesis Dc, Understanding Oxygen Therapy, Using Oxygen Safely Print Language: Tamazight Stand Alone Forms: Janell Award Info., Patient Portal Info Letter Discharge Order Discharge Orders: Discharge (Routine); Ordered 01/04/25 Ordered By: Viktor Calabrese Quality Discharge Quality Measures VTE prophylaxis Attestestation MD Attestation I attest that I was physically present for the evaluation, physical examination, lab and imaging review of the patient with the residents. I discussed the case with the residents and agree with the findings and plans of care as documented above. Lin Mejia MD
--- NOTE | 2025-01-04 13:37 | PC.NURSE ---
Performed Oxygen test on patient. On 4 liters Nasal Canula O2 sat is 93. Placed patient on room air. O2 sat went down to 87. Did not test patient any further.
--- NOTE | 2025-01-04 15:38 | PC.SS ---
Addendum entered by Kayla Montoya 01/04/25 16:14: SS received a call from Lauren @ [facility] and she states she was not updated by [facility]. She will contact them to see where they are at with paperwork for this. SS will follow up again tomorrow. Original Note: Follow up note: SS attempted numerous call to staff at [facility]. No response. SS spoke to Balwinder @ [phone] to clarify if they can take patient back on new . SS contacted [facility] @ [phone] and medical case worker is Lauren De La Garza. Left mssg that we are trying to clarify if [place].
[2025-01-04] MEDS: MIRTAZAPINE 15 MG TABLET PO (21:25)
[2025-01-05] VITALS (8 sets, daily range): BP systolic 103–140; BP diastolic 69–93; PULSE 65–90; RESP 16–19; TEMP 36.1–36.6; O2SAT 90–97
[2025-01-05 06:12] LABS: Basophils # (Auto) 0.1 Thou/mm3 (0.0-0.2); Basophils % (Auto) 1 % (0-2.5); Eosinophils # (Auto) 0.1 Thou/mm3 (0.0-0.5); Eosinophils % (Auto) 2 % (0-10); Hematocrit 34.8 % (36.0-46.0); Hemoglobin 11.8 g/dL (12.0-16.0); Immature Granulocytes % (Auto) 2 % (0-0); Immature Granulocytes Auto 0.17 Thou/mm3 (0.00-0.00); Lymphocytes # (Auto) 2.7 Thou/mm3 (1.0-4.8); Lymphocytes % (Auto) 34 % (10-50); Mean Corpuscular HGB Conc 33.9 g/dl (31.0-37.0); Mean Corpuscular Hemoglobin 31.3 pg (25.0-35.0); Mean Corpuscular Volume 92 fL (80-100); Monocytes # (Auto) 0.7 Thou/mm3 (0.0-0.8); Monocytes % (Auto) 9 % (0-12); Neutrophils # (Auto) 4.2 Thou/mm3 (1.8-7.7); Neutrophils % (Auto) 53 % (37-80); Nucleated Red Blood Cell % 0 /100 WBC (0); Platelet Count 249 Thou/mm3 (140-440); RDW Standard Deviation 41.3 fL (36.4-46.3); Red Blood Count 3.77 Miln/mm3 (4.00-5.20)
[2025-01-05 06:34] LABS: Alanine Aminotransferase 13 U/L (10-49); Albumin, Serum 3.7 gm/dL (3.4-4.8); Albumin/Globulin Ratio 1.2 (1.2-2.2); Alkaline Phosphatase 81 U/L (46-116); Anion Gap 7 (7-16); Aspartate Amino Transferase 12 U/L (0-34); BUN/Creatinine Ratio 28 Ratio (12-20); Bilirubin,Total 0.2 mg/dL (0.3-1.2); Blood Urea Nitrogen 17 mg/dL (9-23); Calcium 9.6 mg/dL (8.3-10.6); Calcium (Corrected) 9.8 mg/dL (8.5-10.1); Carbon Dioxide 29.6 mMol/L (20.0-31.0); Chloride 104 mMol/L (98-107); Creatinine (Component) 0.6 mg/dL (0.6-1.3); Estimated Creatinine Clearance 81.8 mL/min (>60); Globulin 3.2 gm/dL (2.3-3.5); Glucose 108 mg/dL (74-106); Magnesium 1.9 mg/dL (1.6-2.6); Osmolality,Calculated 283 (275-295); Phosphorous 4.2 mg/dL (2.4-5.1); Potassium 4.1 mMol/L (3.4-5.1); Sodium 141 mMol/L (136-145); Total Protein 6.9 gm/dL (5.7-8.2); eGFR > 60 See Note
--- NOTE | 2025-01-05 09:05 | PC.SS ---
Addendum entered by Kayla Montoya 01/05/25 13:43: SS contacted [facility] and they confirmed they are on their way for delivery. SS updated floor nurse. [facility] staff to transport patient home. Original Note: Follow up note: SS spoke to Cara Bateman, [facility] of [facility] re: discharge needs. Cara confirmed they will take patient back today. They received their documentation that they can accept patient with new 02. SS submitted order with 02 sats to [facility] for review and delivery. D/c set for today.
[2025-01-05] MEDS: ZIPRASIDONE 20 MG CAPSULE 40 MG PO (09:59)
[2025-01-05] MEDS: PANTOPRAZOLE 40 MG TABLET PO (09:59)
[2025-01-05] MEDS: SALINE NASAL 45 ML BTL 1 SPRAY NASAL (09:59)
[2025-01-05] MEDS: ATORVASTATIN CALCIUM 20 MG TABLET PO (10:00)
[2025-01-05] MEDS: PROPRANOLOL 10 MG TABLET 20 MG PO (10:00)
[2025-01-05] MEDS: POLYETHYLENE GLYCOL 17 GM PACKET PO (10:00)
[2025-01-05] MEDS: DIVALPROEX SOD 125 MG SPRINKLE 625 MG PO (10:03)
[2025-01-05] MEDS: SENNOSIDES SYRUP 8.8 MG/5 ML UDC PO (10:04)
[2025-01-05] MEDS: DOCUSATE SOD 100 MG CAPSULE PO (10:08)
--- NOTE | 2025-01-05 15:17 | ESDS_ITS ---
<Statement entered by Breanna Varela MD - 01/06/25 06:03> I discussed with and supervised the financial internship physician who took care of this patient. I personally saw and examined the patient and discussed the assessment and plan with the entire medicine team, including my attending Dr. Mejia, I agree with most of the assessment and plan as documented below Breanna Varela M.D. PGY-2 Planned Discharge Date 01/05/25 DS: Providers Provider Date of admission: 12/23/24 18:41 Primary care physician: Shabbir Calabrese MD Admitting Provider: Hiwot Nazario DO Attending Provider on Admission: Lin Mejia MD Consults: 12/23/24 16:33 Referral Registered Dietitian Routine Comment: 12/24/24 05:59 Referral Registered Dietitian Stat Comment: pt DD NONVERBAL 12/24/24 07:39 Referral Speech Therapy Stat Comment: swallow evaluation 12/25/24 10:14 Referral Speech Therapy Stat Comment: Attending Provider on DC: Lin Mejia MD Discharging Provider: Viktor Calabrese MD Anticipated date of discharge: 01/05/25 DS: Diagnosis Problem List Completed Was Problem List Reviewed/Reconciled?: Yes Hospital Course Hospital Course Hospital course: 64-year-old female with past medical history of type 2 diabetes (not on any medications), developmentally delayed, nonverbal at baseline, hyperlipidemia, schizoaffective disorder who was brought into the ED by caregiver due to generalized weakness. Per the caregiver patient has been progressively getting more lethargic for a few days. Patient at baseline is wheelchair-bound but would stand with assistance however in the past days patient has lost interest in her usual daily activities. Patient also has cough productive of white-yellowish phlegm. Admitted for acute hypoxic respiratory failure secondary to community- acquired pneumonia. During hospital stay patient was managed with IV antibiotic therapy which she completed during hospital stay. Patient was also provided with breathing treatments. At one point patient's oxygen requirements had increased and was placed on high flow nasal cannula. And was slowly weaned off to nasal cannula. Patient was also found to have right pleural effusion however was evaluated with him tech via bedside ultrasound and found not enough fluid to have any type of intervention at that time. At this time patient is oxygen requirements are minimal. Patient is stable to be discharged with minimal oxygen requirements on nasal cannula. At this time patient is medically stable for discharge. Patient is instructed to follow-up with primary care physician within 1 week of discharge. Please continue all your medications as prescribed. Should any symptoms recur or worsen patient is instructed to return to the ED. Problem List: #Acute hypoxic respiratory failure likely secondary to community-acquired pneumonia-resolved #Right pleural effusion-stable #Transaminitis-resolved #Hyperlipidemia #Diabetes mellitus type 2 insulin-dependent #Developmentally delayed #Schizoaffective disorder #History of constipation Case discussed with my senior Dr. Varela PGY-[address] Roberto Calabrese MD PGY-1 Status at Discharge Functional status at discharge: wheelchair bound Overall status at discharge: patient is back to baseline Time Spent with Patient Time attestation: Total time spent providing and/or coordinating discharge services: Time spent: Greater than 30 minutes Exam Vital Signs Temp Pulse Resp BP Pulse Ox O2 Del Method O2 Flow Rate 97.0 F 72 16 106/77 92 L Nasal Cannula 4 01/05/25 12:00 01/05/25 12:42 01/05/25 12:42 01/05/25 12:00 01/05/25 12:42 01/05/25 12:00 01/05/25 12:42 FiO2 6 01/03/25 16:00 Narrative Exam Physical Exam GENERAL: NAD, awake, alert, developmentally delayed, nonverbal HEENT: Dry mucosa. Blind in the right eye CARDIO: Heart RRR, no obvious murmurs PULM: - coughing/dyspnea, good air entry bilaterally GI: Abdomen soft, nondistended, no pain on palpation. BSx4 SKIN/MSK/EXT: No wounds/rashes/edema/amputations, no pain on palpation. Pedal pulses present B/L Discharge Plan Plan Patient Disposition: HOME (Self Care) Disposition Comment: Stable Care Plan Goals: Follow up with your primary care physician within 1 week of discharge please continue all your medications as prescribed Should any symptoms recur or worsen patient is instructed to retrun to the ED. Oxygen 2 L per nasal cannula as needed to keep O2 sat above 90 Prescriptions/Referrals Prescriptions/Med Rec: Continued multivitamin [Tab-A-Jessica] 1 TAB tablet 1 tab PO QDAY Qty: 0 famotidine [Pepcid] 40 MG tablet 40 mg PO QPM Qty: 0 Patient Comments: TO SUPPRESS GASTRIC ACID SECRETIONS acetaminophen [Tylenol Extra Strength] 500 MG tablet 2 tab PO Q6HR PRN (Reason: PAIN) Qty: 0 Patient Comments: FOR FEVER OR PAIN docusate sodium [DOK] 250 MG capsule 250 mg PO HS Qty: 0 lactulose 10 GM/15 ML solution 15 ml PO BID Qty: 0 Divalproex Sodium SPRINKLE * (DEPAKOTE SPRINKLE *) 125 MG CAP.SPRINK 625 mg PO BID Qty: 0 Mag Hyd/Alum Hyd/Simeth SUSP * (MAALOX EX STR SUSP *) 355 ML ORAL.SUSP 2 tbsp PO TID PRN (Reason: INDIGESTION) Qty: 355 metformin [Glucophage] 500 MG tablet 500 mg PO BIDAC Qty: 100 0RF insulin glargine [Lantus U-100 Insulin] 100 U/ML solution 15 unit Sub-Q QDAY Qty: 30 0RF atorvastatin 20 mg tablet 20 mg PO QDAY ziprasidone HCl 40 mg capsule 40 mg PO BID mirtazapine 15 mg tablet 15 mg PO HS propranolol 20 mg tablet 20 mg PO BID loratadine 10 mg tablet 10 mg PO QDAY bisacodyl 10 mg suppository [place] Discontinued AVORSTATIN 20 mg PO QDAY Qty: 0 omeprazole 40 mg capsule,delayed release(DR/EC) 40 mg PO QDAY divalproex 125 mg capsule, delayed rel sprinkle PO Referrals: Shabbir Calabrese MD [Primary Care Provider] - Patient/Caregiver Discharge Instructions Education Materials: Understanding Oxygen Therapy, Using Oxygen Safely Print Language: Pashto Stand Alone Forms: Janell Award Info., Patient Portal Info Letter Discharge Order Discharge Orders: Discharge (Routine); Ordered 01/04/25 Ordered By: Viktor Calabrese Quality Discharge Quality Measures VTE prophylaxis Attestestation MD Attestation I attest that I was physically present for the evaluation, physical examination, lab and imaging review of the patient with the residents. I discussed the case with the residents and agree with the findings and plans of care as documented above. Lin Mejia MD
== END 2025-01-05 17:36 | disposition home or self-care (01) | DRG 193 ==
LOC: SERX 16:57 → SERHOLD 17:47 → S3SX 12-24 06:09 → SERHOLD 12-24 06:09
PROVIDERS: Nurse Practitioner Family; Student in an Organized Health Care Education/Training Program; Admitting Provider Internal Medicine; Emergency Provider Emergency Medicine; PCP Family Medicine; Visit Provider Student in an Organized Health Care Education/Training Program
DX: J18.9 Pneumonia, unspecified organism (principal); J96.01 Acute respiratory failure with hypoxia; J91.8 Pleural effusion in other conditions classified elsewhere; E11.9 Type 2 diabetes mellitus without complications; E78.5 Hyperlipidemia, unspecified; F25.9 Schizoaffective disorder, unspecified; R74.01 Elevation of levels of liver transaminase levels; R62.50 Unspecified lack of expected normal physiological development in childhood; R74.8 Abnormal levels of other serum enzymes; K59.00 Constipation, unspecified; E87.5 Hyperkalemia; F31.9 Bipolar disorder, unspecified; Z99.3 Dependence on wheelchair; Z79.899 Other long term (current) drug therapy; Z79.4 Long term (current) use of insulin; Z11.52 Encounter for screening for COVID-19; Z79.84 Long term (current) use of oral hypoglycemic drugs
CPT/HCPCS: 36415; 36600; 71045; 71046; 80053; 80061; 81001; 82803; 83036; 83605; 83735; 83880; 84100; 84132; 84145; 84443; 84484; 85025; 86331; 86635; 87040; 87081; 87205; 87400; 87634; 87811; 89220; 92526; 92610; 93005; 93225; 94640; 94667; 99285; J0696; J1643; J1815; J3490; J7050; A9270